=== PATIENT | female | born 1955 | race Caucasian/White ===

== ENCOUNTER → 2016-10-15 | Outpatient (CLI) | payer BC ==
--- NOTE | 2016-10-15 08:59 | CT ---
EXAMINATION TYPE: CT chest w con DATE OF EXAM: 10/15/2016 7:57 AM COMPARISON: NONE HISTORY: Abnormal findings of lung field CT DLP: 139.70 mGycm, Automated exposure control for dose reduction was used. CONTRAST: Performed injected with 100 ml mL of Omnipaque 300. TECHNIQUE: Axial images were obtained at 5 mm thick sections. Reconstructed images are reviewed on SignalSet computer in the coronal plane. FINDINGS: Portion of the thyroid visualized is normal. No suspicious lung nodules or focal infiltrates are present. No enlarged mediastinal or hilar adenopathy is evident. The ascending aorta diameter at the level o f the main pulmonary artery is 2.8 cm. The main pulmonary artery diameter at the bifurcation is 2.[address] sections are obtained through the upper abdomen. Abdomen is essentially unremarkable. IMPRESSIONS: 1. Normal Chest CT.
== END ==
LOC: RADCTMAIN 07:16
PROVIDERS: ATTEND Family Medicine
DX: R91.8 Other nonspecific abnormal finding of lung field (principal)
CPT/HCPCS: 71260; Q9967

== ENCOUNTER → 2016-10-19 | Outpatient (CLI) | payer BC ==
[2016-10-19 10:06] LABS: Basophils # (A) 0.1 k/uL (0-0.2); Basophils % (A) 1 %; CH 33.4; CHCM 33.5; Eosinophils # (A) 0.4 k/uL (0-0.7); Eosinophils % (A) 9 %; HCT 40.9 % (34.0-46.0); HDW 2.36; HGB 13.2 gm/dL (11.4-16.0); Luc # (Auto) 0.13; Luc % (Auto) 3; Lymphocytes % (A) 23 %; MCH 32.3 pg (25.0-35.0); MCHC 32.2 g/dL (31.0-37.0); MCV 100.1 fL (80.0-100.0); Mean Platelet Volume 7.4; Monocytes # (A) 0.2 k/uL (0-1.0); Monocytes % (A) 5 %; Neutrophils # (A) 2.6 k/uL (1.3-7.7); Neutrophils % (A) 59 %; RBC 4.09 m/uL (3.80-5.40); RDW 12.9 % (11.5-15.5); WBC 4.5 k/uL (3.8-10.6); WBC (Perox) 4.73
[2016-10-19 11:59] LABS: Erythrocyte Sedimentation Rate 2 mm/hr (0-20)
== END | disposition home or self-care (01) ==
LOC: LABWHC1 09:33
PROVIDERS: ATTEND Internal Medicine
DX: R09.1 Pleurisy (principal)
CPT/HCPCS: 36415; 85025; 85379; 85652; 86038

== ENCOUNTER 2016-11-03 21:48 | Inpatient (IN) | payer BC ==
[~2016-11-03 21:48] MED LIST: BIVALIRUDIN BOLUS 250 MG/50 ML IV ONE
[2016-11-03] MEDS ORDERED: SODIUM CHLORIDE 0.9% 1,000 ML IV STA (21:52)
[2016-11-03] MEDS ORDERED: SODIUM CHLORIDE 0.9% 500 ML IV STA (21:52)
[2016-11-03] MEDS ORDERED: MORPHINE SULFATE 4 MG/ML SYRINGE IVP STA (22:06)
[2016-11-03] MEDS ORDERED: LABETALOL 5 MG/ML VIAL MDV IVP STA (22:06)
[2016-11-03] MEDS ORDERED: MORPHINE SULFATE 4 MG/ML SYRINGE IV PRN (22:16)
[2016-11-03] MEDS ORDERED: HEPARIN SODIUM,PORCINE 5,000 UNIT/ML 1 ML VIAL IV PRN (22:16)
[2016-11-03] MEDS ORDERED: ASPIRIN 81 MG CHEW PO STA (22:16)
[2016-11-03] MEDS ORDERED: NITROGLYCERIN SL TABS 0.4 MG TAB SUBLINGUAL PRN (22:16)
[2016-11-03] MEDS ORDERED: HEPARIN SODIUM,PORCINE/D5W PMX 25,000 UNIT in DEXTROSE/WATER 1 500ML.BAG IV SCH (22:30)
[2016-11-03] MEDS: HEPARIN SODIUM,PORCINE 5,000 UNIT/ML 1 ML VIAL IV ONE (22:33)
--- NOTE | 2016-11-03 22:42 | XR ---
EXAM: XR Chest, 1 View CLINICAL HISTORY: Reason: Chest Pain TECHNIQUE: Frontal view of the chest. COMPARISON: CT 10/15/2016 FINDINGS: Lungs: Unremarkable. No consolidation. Pleural space: Unremarkable. No pneumothorax. Heart: Stable cardiomediastinal silhouette. Mediastinum: See above. Bones/joints: No acute osseous abnormality. Tubes, lines and devices: Right PICC tip projects over the superior vena cava. IMPRESSION: No acute cardiopulmonary process.
[2016-11-03] MEDS ORDERED: SODIUM CHLORIDE 0.9% 1,000 ML IV ONE (22:45)
[2016-11-03] MEDS ORDERED: MIDAZOLAM 2 MG/2 ML VIAL ONE (22:53)
[2016-11-03] MEDS ORDERED: ONDANSETRON 4 MG/2 ML VIAL ONE (22:54)
[2016-11-03] MEDS ORDERED: ONDANSETRON 4 MG/2 ML VIAL IVP ONE (22:55)
[2016-11-03] MEDS ORDERED: HYDROmorphone 2 MG/ML 1 ML SYRINGE IV ONE (22:56)
[2016-11-03] MEDS ORDERED: HYDROmorphone 2 MG/ML 1 ML SYRINGE ONE (22:56)
[2016-11-03] MEDS ORDERED: LIDOCAINE 2% INJ 20 MG/ML SQ ONE (22:58)
[2016-11-03] MEDS ORDERED: MIDAZOLAM 2 MG/2 ML VIAL IV ONE (22:58)
[2016-11-03 23:11] LABS: ALT 26 U/L (9-52); AST 32 U/L (14-36); Alkaline Phosphatase 60 U/L (38-126); Anion Gap 11 mmol/L; Blood Urea Nitrogen 20 mg/dL (7-17); Carbon Dioxide 23 mmol/L (22-30); Chloride 100 mmol/L (98-107); Glucose 117 mg/dL (74-99); Magnesium 1.8 mg/dL (1.6-2.3); Non-African American GFR(MDRD) 56 (>60 ml/min/1.73 sqM); Potassium 4.3 mmol/L (3.5-5.1); Sodium 134 mmol/L (137-145); Total Bilirubin 0.5 mg/dL (0.2-1.3); Total Protein 7.5 g/dL (6.3-8.2)
[2016-11-03 23:12] LABS: Basophils # (A) 0.1 k/uL (0-0.2); Basophils % (A) 1 %; CH 33.8; CHCM 34.6; Eosinophils # (A) 0.1 k/uL (0-0.7); Eosinophils % (A) 2 %; HCT 40.6 % (34.0-46.0); HDW 2.23; HGB 13.8 gm/dL (11.4-16.0); Luc # (Auto) 0.18; Luc % (Auto) 2; Lymphocytes # (A) 1.6 k/uL (1.0-4.8); Lymphocytes % (A) 20 %; MCH 33.4 pg (25.0-35.0); MCHC 34.1 g/dL (31.0-37.0); MCV 98.1 fL (80.0-100.0); Mean Platelet Volume 6.4; Monocytes # (A) 0.4 k/uL (0-1.0); Monocytes % (A) 5 %; Neutrophils # (A) 5.6 k/uL (1.3-7.7); Neutrophils % (A) 71 %; RBC 4.14 m/uL (3.80-5.40); WBC 7.9 k/uL (3.8-10.6); WBC (Perox) 8.21
--- NOTE | 2016-11-03 23:16 | ED ---
General Adult HPI - General Chief complaint: Chest Pain Stated complaint: chest pain Time Seen by Provider: 11/03/16 21:50 Source: patient, RN notes reviewed, old records reviewed Mode of arrival: wheelchair Limitations: no limitations - History of Present Illness Initial comments: This is a 60-year-old female the ER for evaluation of chest pain, patient with severe anterior chest pain rating the left jaw. 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 Patient denies any drugs or alcohol, denies any fever cough or congestion Kalosis complaining of severe anterior chest pain heaviest Acerra last night but was worse today. Severely worse after work. The pain radiates to her left job radiates to her left shoulder and feels like heaviness on her chest. No prior history of similar symptoms - Related Data Home Medications Medication Instructions Recorded Confirmed Albuterol Inhaler [Ventolin Hfa 1 - 2 puff INHALATION RT-Q6H PRN 11/03/16 Inhaler] Estrogens, Conjugated [Premarin] 0.625 mg PO DAILY 11/03/16 11/03/16 Fluticasone/Salmeterol [Advair 1 puff INHALATION RT-BID 11/03/16 11/03/16 250-50 Diskus] Loratadine [Claritin] 10 mg PO DAILY 11/03/16 11/03/16 Montelukast Sodium [Singulair] 10 mg PO DAILY 11/03/16 11/03/16 Allergies Allergy/AdvReac Type Severity Reaction Status Date / Time pentazocine [From Talwin] Allergy Dyspnea Verified 11/03/16 22:18 Sulfa (Sulfonamide Allergy Rash/Hives Verified 11/03/16 22:18 Antibiotics) aspirin AdvReac Nausea Verified 11/03/16 22:18 meperidine [From Demerol] AdvReac Vomiting Verified 11/03/16 22:18 Review of Systems ROS Statement: Those systems with pertinent positive or pertinent negative responses have been documented in the HPI. ROS Other: All systems not noted in ROS Statement are negative. Past Medical History Past Medical History: No Reported History History of Any Multi-Drug Resistant Organisms: None Reported Past Surgical History: Section, Hysterectomy, Tonsillectomy Past Psychological History: No Psychological Hx Reported Smoking Status: Former smoker Past Alcohol Use History: Occasional Past Drug Use History: None Reported General Exam Limitations: no limitations General appearance: alert, anxious, in distress Head exam: Present: atraumatic, normocephalic, normal inspection Eye exam: Present: normal appearance, PERRL, EOMI. Absent: scleral icterus, conjunctival injection, periorbital swelling ENT exam: Present: normal exam, mucous membranes moist Neck exam: Present: normal inspection. Absent: tenderness, meningismus, lymphadenopathy Respiratory exam: Present: normal lung sounds bilaterally. Absent: respiratory distress, wheezes, rales, rhonchi, stridor Cardiovascular Exam: Present: normal rhythm, tachycardia, normal heart sounds. Absent: systolic murmur, diastolic murmur, rubs, gallop, clicks GI/Abdominal exam: Present: soft, normal bowel sounds. Absent: distended, tenderness, guarding, rebound, rigid Extremities exam: Present: normal inspection, full ROM, normal capillary refill. Absent: tenderness, pedal edema, joint swelling, calf tenderness Back exam: Present: normal inspection Neurological exam: Present: alert, oriented X3, CN II-XII intact Psychiatric exam: Present: normal affect, normal mood Skin exam: Present: warm, dry, intact, normal color. Absent: rash Course Vital Signs 11/03/16 21:49 Temperature 98.2 F Pulse Rate 121 H Respiratory 22 Rate Blood Pressure 191/118 O2 Sat by Pulse 97 Oximetry - Reevaluation(s) Reevaluation #1: 11/03/16 23:13 Patient with severe chest pain, given labetalol for blood pressure control and pain control for morphine Reevaluation #2: 11/03/[address] elevated [place] pagejuma, cardiology evaluating patient EKG Findings - EKG Comments: EKG Findings:: EKG is positive for acute ST elevated [place], patient does have hyperacute T waves and ST elevation in the lateral leads,. EKG just showed normal sinus rhythm rate of 98, MT 128, QRS 72. Repeat Medical Decision Making - Medical Decision Making 60 female year with no history of heart disease, history of smoking coming in with severe anterior chest pain. Pain was yesterday i felt today but significant worsening tonight. Patient does have ST elevation in hyperacute T waves and EKG, cardiology saw patient in emergency room and transported the catheterization lab for cardiac cath. - Lab Data Result diagrams: 11/03/16 22:15 Lab Results 11/03/16 11/03/16 11/03/16 Range/Units 22:15 22:15 22:15 APTT 22.9 (22.0-30.0) sec Sodium 134 L (137-145) mmol/L Potassium 4.3 (3.5-5.1) mmol/L Chloride 100 (98-107) mmol/L Carbon Dioxide 23 (22-30) mmol/L Anion Gap 11 mmol/L BUN 20 H (7-17) mg/dL Creatinine 1.01 (0.52-1.04) mg/dL Est GFR (MDRD) Af Amer >60 (>60 ml/min/1.73 sqM) Est GFR (MDRD) Non-Af 56 (>60 ml/min/1.73 sqM) Glucose 117 H (74-99) mg/dL Calcium 10.0 (8.4-10.2) mg/dL Magnesium 1.8 (1.6-2.3) mg/dL Total Bilirubin 0.5 (0.2-1.3) mg/dL AST 32 (14-36) U/L ALT 26 (9-52) U/L Alkaline Phosphatase 60 (38-126) U/L Total Protein 7.5 (6.3-8.2) g/dL Albumin 4.5 (3.5-5.0) g/dL Lipase 102 (23-300) U/L - Radiology Data Radiology results: report reviewed (Chest x-ray shows no widened mediastinum), image reviewed Critical Care Time Critical Care Time: Yes Total Critical Care Time: 31 Disposition Clinical Impression: ST elevation myocardial infarction (STEMI) Disposition: ADMITTED IP TO THIS HOSP Condition: Serious
[2016-11-03] MEDS ORDERED: IOHEXOL 350 MG/ML 125ML BOTTLE INJ ONE (23:18)
[2016-11-03] MEDS ORDERED: RX INFO: IV CONTRAST WAS GIVEN 1 EACH MISC MISCELLANE PRN (23:21)
[2016-11-03] MEDS ORDERED: hydrALAZINE HCL 20 MG/ML 1 ML VIAL ONE (23:22)
[2016-11-03] MEDS ORDERED: hydrALAZINE HCL 20 MG/ML 1 ML VIAL IV ONE (23:24)
--- NOTE | 2016-11-03 23:28 | P.CRDCN ---
History of Present Illness Consult date: 11/03/16 Chief complaint: Chest discomfort History of present illness: This is a pleasant 60-year-old female patient with no significant past medical history presented to the emergency room complaining of chest discomfort. She has been experiencing intermittent episodes of chest discomfort over the last week. She describes the discomfort as a pressure across the chest with some radiation to the neck and to the jaw. Earlier today the discomfort was quite severe where she decided to come in to the emergency room. In the ER the EKG showed sinus rhythm with ST segment elevation in the anterior leads. In view of the ongoing chest discomfort with decided to pursue with a heart catheterization. 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 The left ventriculography showed evidence of stress-induced cardiomyopathy with severely impaired LV function and ejection fraction of about 25%. Maximize medical treatment is recommended and the patient is going to be started on metoprolol, lisinopril, and Aldactone. Will obtain an echocardiogram Past Medical History Past Medical History: No Reported History History of Any Multi-Drug Resistant Organisms: None Reported Past Surgical History: Section, Hysterectomy, Tonsillectomy Past Psychological History: No Psychological Hx Reported Smoking Status: Former smoker Past Alcohol Use History: Occasional Past Drug Use History: None Reported Medications and Allergies Home Medications Medication Instructions Recorded Confirmed Type Albuterol Inhaler [Ventolin Hfa 1 - 2 puff INHALATION RT-Q6H PRN 11/03/16 History Inhaler] Estrogens, Conjugated [Premarin] 0.625 mg PO DAILY 11/03/16 11/03/16 History Fluticasone/Salmeterol [Advair 1 puff INHALATION RT-BID 11/03/16 11/03/16 History 250-50 Diskus] Loratadine [Claritin] 10 mg PO DAILY 11/03/16 11/03/16 History Montelukast Sodium [Singulair] 10 mg PO DAILY 11/03/16 11/03/16 History Allergies Allergy/AdvReac Type Severity Reaction Status Date / Time pentazocine [From Talwin] Allergy Dyspnea Verified 11/03/16 22:18 Sulfa (Sulfonamide Allergy Rash/Hives Verified 11/03/16 22:18 Antibiotics) aspirin AdvReac Nausea Verified 11/03/16 22:18 meperidine [From Demerol] AdvReac Vomiting Verified 11/03/16 22:18 Physical Exam Vitals: Vital Signs Pulse Resp BP Pulse Ox 11/03/16 22:42 87 24 169/107 98 11/03/16 22:37 94 24 162/104 98 11/03/16 22:34 114 H 26 H 183/107 98 11/03/16 22:22 108 H 26 H 194/108 98 Intake and Output 11/03/16 11/03/16 11/04/16 14:59 22:59 06:59 Intake Total 100 Balance 100 Intake: IV 100 - Constitutional General appearance: no acute distress - Respiratory Respiratory: bilateral: CTA - Cardiovascular Rhythm: regular Heart sounds: normal: S1, S2 Results 11/03/16 22:15 Current Medications Generic Name Dose Route Start Last Admin Trade Name Freq PRN Reason Stop Dose Admin Aspirin 325 mg 11/04/16 09:00 Aspirin PO DAILY [facility] Atorvastatin Calcium 80 mg 11/04/16 09:00 Lipitor PO DAILY [facility] Heparin Sodium (Porcine) 0 unit 11/03/16 22:16 Heparin IV Q6HR PRN Low PTT Protocol Sodium Chloride 1,000 mls @ 100 mls/hr 11/03/16 21:52 11/03/16 22:38 Saline 0.9% IV 11/04/16 07:51 100 mls/hr .Q10H STA Administration Heparin Sodium/Dextrose 25,000 500 mls @ 13.06 mls/hr 11/03/16 22:30 unit/ IV Solution IV .Q24H JENNIE Protocol 12 UNITS/KG/HR Sodium Chloride 1,000 mls @ 100 mls/hr 11/03/16 23:30 Saline 0.9% IV 11/04/16 05:31 .Q10H [facility] Lisinopril 5 mg 11/04/16 09:00 Zestril PO DAILY [facility] Metoprolol Tartrate 25 mg 11/04/16 09:00 Lopressor PO BID [facility] Miscellaneous Information 1 each 11/03/16 23:21 Rx Info: Iv Contrast Was Given MISCELLANE 11/05/16 23:21 DAILY PRN Per Protocol Morphine Sulfate 4 mg 11/03/16 22:16 Morphine Sulfate (Inj) IV Q4HR PRN Chest Pain Nitroglycerin 0.4 mg 11/03/16 22:16 Nitrostat SUBLINGUAL Q5M PRN Chest Pain Spironolactone 25 mg 11/04/16 09:00 Aldactone PO DAILY JENNIE Intake and Output 11/03/16 11/03/16 11/04/16 14:59 22:59 06:59 Intake Total 100 Balance 100 Intake: IV 100 Assessment and Plan Plan: Assessment #1 stress induced cardiomyopathy Plan #1 maximize medical treatment #2 an echocardiogram was Doppler #3 follow-up with the patient
[2016-11-03] MEDS ORDERED: SODIUM CHLORIDE 0.9% 1,000 ML IV SCH (23:30)
--- NOTE | 2016-11-03 23:33 | P.PCN ---
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 Selective right and left coronary angiogram 2. Left heart catheterization 3. Left ventriculography APPROACH: Right femoral artery PROCEDURE DESCRIPTION: After obtaining an informed consent and explaining the procedure benefits, risks , and complications, the patient was brought to cardiac cardiac cath lab radiology technologist. Local anesthesia was performed using lidocaine subcutaneously. The right femoral artery was cannulated using puncture technique, the guidewire passed easily, and a 6-Thai sheath dilator assembly was advanced over the wire then the wire and dilator were removed and sheath was flushed. Selective right and left coronary angiogram using a 6-Thai JR4 and JL4 catheters. Following that we did left heart catheterization followed by left ventriculography using 6-Thai pigtail catheter. The procedure was completed there was no complication. SELECTIVE CORONARY ANGIOGRAM: The right coronary artery: Is a large caliber vessel and its a dominant vessel. Its angiographically normal. Bifurcates distally into PDA and PLV branches and both are angiographically normal. Left main: Is angiographically normal. Bifurcates into the left circumflex and left anterior descending artery The left circumflex: Is a large caliber vessel and and on dominant vessel. The proximal left circumflex is angiographically normal. It gives rises into the first OM branch which is normal. The mid left circumflex is angiographically normal and gives rises into the second OM branch which seems to be angiographically normal. The left circumflex continue after that as a small caliber vessel The left anterior descending artery: The proximal LAD appears to be angiographically normal. It gives rises into the first diagonal which seems to be angiographically normal. The mid LAD appears to have a plaque in the range of 50% with myocardial bridging the LAD distally becomes tortuous but seems to be angiographically normal. The LAD in the midportion gives rises into the second diagonal which seems to be angiographically normal. HEMODYNAMICS: The left ventricular end-diastolic pressure was 24 mmHg and no gradient was identified across aortic valve VENTRICULOGRAPHY: Was performed in the GARCIA projection and using a poor injection. The left ventricular systolic function is impaired with an ejection fraction of 25% with anterior, apical, and inferoapical hypokinesia and finding consistent with stress induced cardiomyopathy. POSTPROCEDURE MANAGEMENT: Maximize medical treatment Follow-up with the patient
[2016-11-03 23:39] LABS: Troponin I 0.267 ng/mL (0.000-0.034)
[2016-11-04 00:48] VITALS: BMI 21.9
[2016-11-04] MEDS: HEPARIN SODIUM,PORCINE 5,000 UNIT/ML 1 ML VIAL IV ONE (01:27)
[2016-11-04 04:58] LABS: Mean Platelet Volume 6.4
[2016-11-04 05:07] LABS: Cholesterol 204 mg/dL (<200); HDL Cholesterol 92 mg/dL (40-60); Triglycerides 132 mg/dL (<150)
[2016-11-04 05:32] LABS: Creatine Kinase MB 44.3 ng/mL (0.0-2.4)
[2016-11-04 05:33] LABS: Troponin I 3.97 ng/mL (0.000-0.034)
[2016-11-04] MEDS: ONDANSETRON 4 MG/2 ML VIAL IVP PRN ×3 (08:02→21:15)
[2016-11-04] MEDS ORDERED: ALBUTEROL NEBULIZED 2.5 MG/3 ML INHALATION PRN (08:28)
[2016-11-04] MEDS: ASPIRIN 325 MG TAB PO SCH (09:18)
[2016-11-04] MEDS: SPIRONOLACTONE 25 MG TAB PO SCH (09:19)
[2016-11-04] MEDS: ATORVASTATIN 80 MG TAB PO SCH (09:19)
[2016-11-04] MEDS: METOPROLOL TARTRATE 25 MG TAB PO SCH ×2 (09:19→21:23)
[2016-11-04] MEDS: LISINOPRIL 5 MG TAB PO SCH (09:19)
[2016-11-04] MEDS ORDERED: LORazepam 2 MG/ML SYRINGE IV STA (10:56)
[2016-11-04] MEDS ORDERED: HYDROmorphone 1 MG/ML 1 ML SYRINGE IVP STA (10:57)
--- NOTE | 2016-11-04 11:20 | ECHOF ---
Referral Reason:ACS MEASUREMENTS -------- HEIGHT: 157.5 cm WEIGHT: 54.4 kg BP: RVIDd: 2.5 cm (< 3.3) IVSd: 1.0 cm (0.6 - 1.1) LVIDd: 4.5 cm (3.9 - 5.3) LVPWd: 1.0 cm (0.6 - 1.1) IVSs: 1.4 cm LVIDs: 3.2 cm LVPWs: 1.4 cm LA Diam: 3.1 cm (2.7 - 3.8) LAESV Index (A-L): 17.36 ml/m Ao Diam: 2.5 cm (2.0 - 3.7) AV Cusp: 1.9 cm (1.5 - 2.6) LA Diam: 2.7 cm (2.7 - 3.8) MV EXCURSION: 13.254 mm (> 18.000) MV EF SLOPE: 108 mm/s (70 - 150) EPSS: 0.6 cm MV E Frankie: 0.64 m/s MV DecT: 157 ms MV A F[place]: 0.75 m/s MV E/A Ratio: 0.86 RAP: 5.00 mmHg RVSP: 46.28 mmHg FINDINGS -------- Sinus rhythm. This was a technically good study. Overall left ventricular systolic function is moderately impaired with, an EF between 35 - 40 %. Possible Takotsubo. Apical anterior LV wall motion is hypokinetic. Apical lateral LV wall motion is hypokinetic. Apical inferior LV wall motion is hypokinetic. Apical septum LV wall motion is hypokinetic. The right ventricle is normal in size. Normal LA size by volume 22+/-6 ml/m2. The right atrium is normal in size. Aortic valve is trileaflet and is mildly thickened. There is no evidence of aortic regurgitation. There is no evidence of aortic stenosis. The mitral valve leaflets are mild to moderately thickened. Mild mitral annular calcification present. [id number] mitral regurgitation is present. Moderate tricuspid regurgitation present. There is mild pulmonary hypertension. The right ventricular systolic pressure, as measured by Doppler, is 46.28mmHg. The pulmonic valve is normal. The aortic root size is normal. There is no pericardial effusion. CONCLUSIONS -------- 1. Sinus rhythm. 2. The mitral valve leaflets are mild to moderately thickened. 3. Mild mitral annular calcification present. 4. Brlmoaea-xo-ixowij mitral regurgitation is present. 5. Moderate tricuspid regurgitation present. 6. There is mild pulmonary hypertension. 7. The right ventricular systolic pressure, as measured by Doppler, is 46.28mmHg. 8. The aortic root size is normal. 9. There is no pericardial effusion. 10. This was a technically good study. 11. Overall left ventricular systolic function is moderately impaired with, an EF between 35 - 40 %. 12. Possible Takotsubo. 13. Apical anterior LV wall motion is hypokinetic. 14. Apical lateral LV wall motion is hypokinetic. 15. Apical inferior LV wall motion is hypokinetic. 16. Apical septum LV wall motion is hypokinetic. 17. Aortic valve is trileaflet and is mildly thickened. MIS DIRECTOR: Savanah Abrams RDCS
[2016-11-04] MEDS ORDERED: HYDROmorphone 1 MG/ML 1 ML SYRINGE IVP PRN (13:04)
[2016-11-04] MEDS: LORATADINE 10 MG TAB PO SCH (13:56)
[2016-11-04] MEDS: MONTELUKAST 10 MG TAB PO SCH (13:56)
--- NOTE | 2016-11-04 14:00 | P.HPIM ---
History of Present Illness H&P Date: 11/04/16 Chief Complaint: Chest pain Patient is a 60-year-old female, patient of Dr. Alejandra in the outpatient setting, with medical history significant for recent pneumonia and pleurisy followed by Dr. Pulido in the outpatient setting, presenting to the emergency department with complaints of chest pain. Patient reports one previous episode of chest pain the day before she presented to the emergency department described as sharp pressure across her chest with some radiation to her neck and jaw. Chest x-ray with no evidence of acute pulmonary process. EKG with evidence of ST elevation in her anterior leads and was taken for emergent heart catheterization with findings of myocardial bridging involving the mid LAD with disease about 50%. Patient did have stress induced cardiomyopathy with severely impaired LV function and ejection fraction of about 25%. Patient tolerated procedure well. Echocardiogram obtained this morning with evidence of moderate to severe mitral regurgitation; moderate tricuspid regurgitation; mild pulmonary hypertension; markedly impaired left ventricular systolic function with an EF between 35-40%; possibly Takotsubo syndrome. Upon examination, patient is lying in bed. Patient complains of chest pressure across the chest currently rated 5 out of 10. Patient states she has had chest pressure since yesterday but it's less in intensity. Patient complains of nausea and vomiting. Patient states that morphine makes her sick to her stomach. Patient denies chills, fevers, shortness of breath, abdominal pain, leg swelling, leg pain. Denies dysuria, hematuria, or urgency. Denies constipation or diarrhea. Past Medical History Past Medical History: No Reported History History of Any Multi-Drug Resistant Organisms: None Reported Past Surgical History: Section, Hysterectomy, Tonsillectomy Past Anesthesia/Blood Transfusion Reactions: Postoperative Nausea & Vomiting ( PONV) Past Psychological History: No Psychological Hx Reported Smoking Status: Former smoker Past Alcohol Use History: Occasional Past Drug Use History: None Reported - Past Family History Mother Family Medical History: Cancer Father Family Medical History: Congestive Heart Failure (CHF) Medications and Allergies Home Medications Medication Instructions Recorded Confirmed Type Albuterol Inhaler [Ventolin Hfa 1 - 2 puff INHALATION RT-Q6H PRN 11/03/16 History Inhaler] Estrogens, Conjugated [Premarin] 0.625 mg PO DAILY 11/03/16 11/03/16 History Fluticasone/Salmeterol [Advair 1 puff INHALATION RT-BID 11/03/16 11/03/16 History 250-50 Diskus] Loratadine [Claritin] 10 mg PO DAILY 11/03/16 11/03/16 History Montelukast Sodium [Singulair] 10 mg PO DAILY 11/03/16 11/03/16 History Allergies Allergy/AdvReac Type Severity Reaction Status Date / Time pentazocine [From Talwin] Allergy Dyspnea Verified 11/03/16 22:18 Sulfa (Sulfonamide Allergy Rash/Hives Verified 11/03/16 22:18 Antibiotics) aspirin AdvReac Nausea Verified 11/03/16 22:18 meperidine [From Demerol] AdvReac Vomiting Verified 11/03/16 22:18 Physical Exam Vitals: Vital Signs Temp Pulse Pulse Resp BP BP Pulse Ox 11/04/16 11:24 98.1 F 81 18 131/86 96 11/04/16 08:00 18 11/04/16 07:58 97 F L 88 24 143/74 95 11/04/16 04:00 97.9 F 81 18 124/72 97 11/03/16 23:40 96.9 F L 82 20 147/74 93 L 11/03/16 22:47 98 F 87 24 168/105 97 11/03/16 22:42 87 24 169/107 98 11/03/16 22:37 94 24 162/104 98 11/03/16 22:34 114 H 26 H 183/107 98 11/03/16 22:28 96.9 F L 82 18 147/74 93 L 11/03/16 22:22 108 H 26 H 194/108 98 Intake and Output 11/03/16 11/04/16 11/04/16 22:59 06:59 14:59 Intake Total 100 700 Output Total 1350 Balance 100 -650 Intake: IV 100 700 Sodium Chloride 0.9% 1, 700 000 ml @ 100 mls/hr IV . Q10H [facility] Rx#:[id number] Output: Urine 1350 Other: Voiding Method Toilet # Voids 1 1 Weight 54.431 kg 56.3 kg GENERAL: Pt awake and alert, well-nourished, appears uncomfortable. HEAD: Atraumatic, normocephalic. EYES: Pupils equal, round, and reactive to light, extraocular movements intact, sclera anicteric, conjunctiva are normal. ENT: Oropharynx clear without exudates. Moist mucous membranes. NECK: Supple without lymphadenopathy or JVD. No carotid bruits. Thyroid midline , small and firm without palpable masses. LUNGS: Breath sounds clear to auscultation bilaterally. No wheezes, rales, or rhonchi. HEART: Heart S1, S2, no S3 or S4. No murmurs, rubs or gallops. ABDOMEN: Soft, nontender, nondistended, normoactive bowel sounds. No guarding, no rebound. No masses or organomegaly appreciated. EXTREMITIES: 2+ peripheral pulses. No edema, clubbing or cyanosis. No calf tenderness. NEUROLOGICAL: Pt oriented x 3. Cranial nerves II through XII grossly intact. Strength and sensation grossly intact. PSYCH: Normal mood, normal affect. SKIN: Warm, dry, intact. Normal turgor. No rashes or lesions. Results CBC & Chem 7: 11/04/16 04:46 11/03/16 22:15 Labs: Abnormal Lab Results - Last 24 Hours (Table) 11/04/16 11/04/16 Range/Units 04:46 04:46 Total Creatine Kinase 336 H (30-135) U/L CK-MB (CK-2) 44.3 H* (0.0-2.4) ng/mL Troponin I 3.970 H* (0.000-0.034) ng/mL Cholesterol 204 H (<200) mg/dL HDL Cholesterol 92 H (40-60) mg/dL Chest x-ray: report reviewed Thrombosis Risk Factor Assmnt - DVT/VTE Prophylaxis DVT/VTE Prophylaxis: Low risk, early ambulation encouraged - Choose All That Apply Any of the Below Risk Factors Present?: No Other Risk Factors: Yes Each Risk Factor Represents 2 Points: Age 61-74 years Thrombosis Risk Factor Assessment Total Risk Factor Score: 2 Thrombosis Risk Factor Assessment Level: Low Risk Assessment and Plan Plan: Impression and plan: 1. Chest pain suspect secondary to stress-induced cardiomyopathy. Cardiology service is on consult, recommendations noted. At this time, plan is to maximize medical therapy. Continue aspirin 325 mg by mouth daily. 2. Dyslipidemia. Continue Lipitor 80 mg daily. 3. Hypertensive urgency, present on arrival, improved. Continue metoprolol 25 mg twice a day. Continue Aldactone 25 mg by mouth daily. 4. History of recent pneumonia and left-sided pleurisy. 5. History of nicotine dependence. 6. Nausea and vomiting. Continue Zofran. Continue Pepcid. Continue to monitor patient. Home medications have been reviewed and resumed. Continue supportive treatment and pain management. Continue to follow cardiology service. The above impression and plan have been discussed and directed by Dr. Rodarte. Mohan RUBIO acting as scribe for Dr. Rodarte.
--- NOTE | 2016-11-04 15:37 | P.PN ---
Subjective Principal diagnosis: Stress cardiomyopathy This is a pleasant 60-year-old female patient with no significant past medical history presented to the emergency room complaining of chest discomfort.She has been experiencing intermittent episodes of chest discomfort over the last week. She describes the discomfort as a pressure across the chest with some radiation to the neck and to the jaw. Yesterday the discomfort was quite severe where she decided to come in to the emergency room. In the ER the EKG showed sinus rhythm with ST segment elevation in the anterior leads. In view of the ongoing chest discomfort with decided to pursue with a heart catheterization. 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 The left ventriculography showed evidence of stress-induced cardiomyopathy with severely impaired LV function and ejection fraction of about 25%.Maximize medical treatment is recommended and the patient is going to be started on metoprolol, lisinopril, and Aldactone. Echocardiogram with Doppler study was performed which revealed an ejection fraction of 35-40% with apical anterior LV wall motion which is hypokinetic. Patient also has moderate to severe mitral regurgitation and moderate tricuspid regurgitation. Blood pressure 137/80 with a heart rate in the 80s. Temp 97.3 she is 96% on room air. Patient continued to complain of chest discomfort at the time of my examination today. Troponin up to 3.9. Nitrates are contraindicated with myocardial bridging, we will start the patient on some Fentanyl for the pain. Objective - Vital Signs Vital signs: Vital Signs Temp 98.1 F 11/04/16 11:24 Pulse 81 11/04/16 11:24 Resp 18 11/04/16 11:24 BP 131/86 11/04/16 11:24 Pulse Ox 96 11/04/16 11:24 Intake & Output 11/03/16 11/04/16 11/04/16 18:59 06:59 18:59 Intake Total 800 Output Total 1350 Balance -550 Weight 56.3 kg Intake: IV 800 Sodium Chloride 0.9% 1, 700 000 ml @ 100 mls/hr IV . Q10H [facility] Rx#:[id number] Output: Urine 1350 Other: Voiding Method Toilet # Voids 1 1 - Exam PHYSICAL EXAMINATION: HEENT: Head is atraumatic, normocephalic. Pupils equal, round. Neck is supple. There is no elevated jugular venous pressure. HEART EXAMINATION: Heart S1 and S2 systolic murmur is heard. CHEST EXAMINATION: Lungs are clear to auscultation and precussion. Positive chest wall tenderness is noted on palpation or with deep breathing. ABDOMEN: Soft, nontender. Bowel sounds are heard. No organomegaly noted. Right groin soft, no evidence of any hematoma. EXTREMITIES: 2+ peripheral pulses with no evidence of peripheral edema and no calf tenderness noted. NEUROLOGIC patient is awake, alert and oriented -3. . - Labs CBC & Chem 7: 11/04/16 04:46 11/03/16 22:15 Labs: Abnormal Lab Results - Last 24 Hours (Table) 11/04/16 11/04/16 Range/Units 04:46 04:46 Total Creatine Kinase 336 H (30-135) U/L CK-MB (CK-2) 44.3 H* (0.0-2.4) ng/mL Troponin I 3.970 H* (0.000-0.034) ng/mL Cholesterol 204 H (<200) mg/dL HDL Cholesterol 92 H (40-60) mg/dL Assessment and Plan (1) Stress-induced cardiomyopathy Status: Acute (2) Myocardial bridge Status: Acute (3) S/P cardiac cath Status: Acute Plan: From cardiology's perspective, we will continue the patient on her current medications including aspirin 325 mg daily, Lipitor 80 mg daily, lisinopril 5 mg daily, metoprolol tartrate 25 mg one tablet by mouth twice a day, Aldactone, we will add fentanyl to her current medications for more optimal pain control. Avoid nitrates in the setting of myocardial bridging. DNP note has been reviewed, I agree with a documented findings and plan of care. Patient was seen and examined.
[2016-11-04] MEDS: SYMBICORT 80-4.5 MCG INHALER INHALATION SCH (20:06)
[2016-11-04] MEDS: ALPRAZolam 0.25 MG TAB PO PRN (21:22)
[2016-11-04] MEDS: FAMOTIDINE 20 MG TAB PO SCH (21:23)
[2016-11-05 06:33] LABS: Mean Platelet Volume 6.3
[2016-11-05] MEDS: ONDANSETRON 4 MG/2 ML VIAL IVP PRN ×3 (07:19→21:23)
[2016-11-05] MEDS: ASPIRIN 325 MG TAB PO SCH (08:57)
[2016-11-05] MEDS: ATORVASTATIN 80 MG TAB PO SCH (08:57)
[2016-11-05] MEDS: FAMOTIDINE 20 MG TAB PO SCH ×2 (08:57→21:21)
[2016-11-05] MEDS: LORATADINE 10 MG TAB PO SCH (08:57)
[2016-11-05] MEDS: MONTELUKAST 10 MG TAB PO SCH (08:58)
[2016-11-05] MEDS: SYMBICORT 80-4.5 MCG INHALER INHALATION SCH ×2 (11:22→19:25)
--- NOTE | 2016-11-05 11:40 | P.PN ---
Subjective Principal diagnosis: Stress induced cardiomyopathy Patient is a 60-year-old female, patient of Dr. Alejandra in the outpatient setting, with medical history significant for recent pneumonia and pleurisy followed by Dr. Pulido in the outpatient setting, presenting to the emergency department with complaints of chest pain. Patient reports one previous episode of chest pain the day before she presented to the emergency department described as sharp pressure across her chest with some radiation to her neck and jaw. Chest x-ray with no evidence of acute pulmonary process. EKG with evidence of ST elevation in her anterior leads and was taken for emergent heart catheterization with findings of myocardial bridging involving the mid LAD with disease about 50%. Patient did have stress induced cardiomyopathy with severely impaired LV function and ejection fraction of about 25%. Patient tolerated procedure well. Echocardiogram obtained this morning with evidence of moderate to severe mitral regurgitation; moderate tricuspid regurgitation; mild pulmonary hypertension; markedly impaired left ventricular systolic function with an EF between 35-40%; possibly Takotsubo syndrome. 11/05/2016: Patient is reevaluated on selective care unit. Patient reports improvement in her chest pressure currently 1 out of 10. Patient continues to complain of mild nausea without vomiting. Denies chills, fevers, shortness of breath, abdominal pain, leg swelling, leg pain. Patient reports poor appetite. Patient is urinating without difficulty. Afebrile. Patient was noted to be slightly hypotensive this morning with blood pressure of 87/52. Orthostatic hypotension negative. Labs pending. Objective - Vital Signs Vital signs: Vital Signs Temp 96.8 F L 11/05/16 11:10 Pulse 68 11/05/16 11:10 Resp 20 11/05/16 11:10 BP 90/55 11/05/16 11:10 Pulse Ox 93 L 11/05/16 11:10 Intake & Output 11/04/16 11/05/16 11/05/16 18:59 06:59 18:59 Intake Total 160 1160 260 Output Total 100 Balance 160 1160 160 Weight 55.3 kg Intake: IV 160 800 Sodium Chloride 0.9% 1, 160 800 000 ml @ 100 mls/hr IV . Q10H [facility] Rx#:[id number] Intake, IV Titration 160 Amount Sodium Chloride 0.9% 1, 160 000 ml As IV .[facility] Rx#:[id number] Oral 360 100 Output: Urine 100 Other: Voiding Method Toilet Toilet Toilet # Voids 1 3 - Exam GENERAL: Pt awake and alert, well-nourished, in no acute distress. HEAD: Atraumatic, normocephalic. EYES: Pupils equal, round, and reactive to light, extraocular movements intact, sclera anicteric, conjunctiva are normal. ENT: Oropharynx clear without exudates. Moist mucous membranes. NECK: Supple without lymphadenopathy or JVD. No carotid bruits. Thyroid midline , small and firm without palpable masses. LUNGS: Breath sounds clear to auscultation bilaterally. No wheezes, rales, or rhonchi. HEART: Heart S1, S2, no S3 or S4. Regular rate and rhythm. No murmurs, rubs or gallops. ABDOMEN: Soft, nontender, nondistended, normoactive bowel sounds. No guarding, no rebound. No masses or organomegaly appreciated. EXTREMITIES: 2+ peripheral pulses. No edema, clubbing or cyanosis. No calf tenderness. NEUROLOGICAL: Pt oriented x 3. Cranial nerves II through XII grossly intact. Strength and sensation grossly intact. PSYCH: Normal mood, normal affect. SKIN: Warm, dry, intact. Normal turgor. No rashes or lesions. - Labs CBC & Chem 7: 11/05/16 05:42 11/03/16 22:15 Assessment and Plan Plan: Impression and plan: 1. Chest pain suspect secondary to stress-induced cardiomyopathy. Cardiology service is on consult, recommendations noted. At this time, plan is to maximize medical therapy. Continue aspirin 325 mg by mouth daily. 2. Dyslipidemia. Continue Lipitor 80 mg daily. 3. Hypertensive urgency, present on arrival, resolved. 4. Hypotension. Blood pressure medications held this morning. Cardiology to address blood pressure medications. 4. History of recent pneumonia and left-sided pleurisy. 5. History of nicotine dependence. 6. Nausea and vomiting, improved. Continue Zofran. Continue Pepcid. Continue to monitor patient. Continue current medications. Continue supportive treatment and pain management. Continue GI and DVT prophylaxis. Continue to follow cardiology service. The above impression and plan have been discussed and directed by Dr. Rodarte. Mohan RUBIO acting as scribe for Dr. Rodarte.
[2016-11-05 12:05] LABS: Basophils % (A) 0 %; CH 33.9; CHCM 34.4; Eosinophils # (A) 0.1 k/uL (0-0.7); Eosinophils % (A) 1 %; HCT 40.6 % (34.0-46.0); HDW 2.25; HGB 13.5 gm/dL (11.4-16.0); Luc # (Auto) 0.12; Luc % (Auto) 1; Lymphocytes % (A) 10 %; MCH 32.9 pg (25.0-35.0); MCHC 33.3 g/dL (31.0-37.0); MCV 98.9 fL (80.0-100.0); Mean Platelet Volume 7.2; Monocytes # (A) 0.7 k/uL (0-1.0); Monocytes % (A) 7 %; Neutrophils # (A) 8.6 k/uL (1.3-7.7); Neutrophils % (A) 81 %; RDW 12.9 % (11.5-15.5); WBC 10.6 k/uL (3.8-10.6); WBC (Perox) 10.02
[2016-11-05 12:16] LABS: Anion Gap 7 mmol/L; Blood Urea Nitrogen 11 mg/dL (7-17); Calcium 8.6 mg/dL (8.4-10.2); Carbon Dioxide 23 mmol/L (22-30); Chloride 103 mmol/L (98-107); Glucose 101 mg/dL (74-99); Non-African American GFR(MDRD) >60 (>60 ml/min/1.73 sqM); Potassium 4.5 mmol/L (3.5-5.1); Sodium 133 mmol/L (137-145)
[2016-11-05] MEDS: SPIRONOLACTONE 25 MG TAB PO SCH (12:19)
--- NOTE | 2016-11-05 15:26 | P.PN ---
Subjective Principal diagnosis: Stress cardiomyopathy This is a pleasant 60-year-old female patient with no significant past medical history presented to the emergency room complaining of chest discomfort.She has been experiencing intermittent episodes of chest discomfort over the last week. She describes the discomfort as a pressure across the chest with some radiation to the neck and to the jaw. Yesterday the discomfort was quite severe where she decided to come in to the emergency room. In the ER the EKG showed sinus rhythm with ST segment elevation in the anterior leads. In view of the ongoing chest discomfort with decided to pursue with a heart catheterization. 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 The left ventriculography showed evidence of stress-induced cardiomyopathy with severely impaired LV function and ejection fraction of about 25%.Maximize medical treatment is recommended and the patient is going to be started on metoprolol, lisinopril, and Aldactone. Echocardiogram with Doppler study was performed which revealed an ejection fraction of 35-40% with apical anterior LV wall motion which is hypokinetic. Patient also has moderate to severe mitral regurgitation and moderate tricuspid regurgitation. Blood pressure has been running on the low side, os recent blood pressure 90/50 with a heart rate in the 70s. Decrease her dose of CHALO inhibitor to 2-1/2 mg one tablet by mouth daily, decrease of beta vini to 12-1/2 mg one tablet by mouth twice a day. He denies any further chest discomfort today. Objective - Vital Signs Vital signs: Vital Signs Temp 97.1 F L 11/05/16 12:01 Pulse 71 11/05/16 12:01 Resp 16 11/05/16 12:01 BP 91/51 11/05/16 12:01 Pulse Ox 97 11/05/16 12:01 Intake & Output 11/04/16 11/05/16 11/05/16 18:59 06:59 18:59 Intake Total 160 1160 260 Output Total 100 Balance 160 1160 160 Weight 55.3 kg Intake: IV 160 800 Sodium Chloride 0.9% 1, 160 800 000 ml @ 100 mls/hr IV . Q10H [facility] Rx#:[id number] Intake, IV Titration 160 Amount Sodium Chloride 0.9% 1, 160 000 ml As IV .[facility] Rx#:[id number] Oral 360 100 Output: Urine 100 Other: Voiding Method Toilet Toilet Toilet # Voids 1 3 - Exam PHYSICAL EXAMINATION: HEENT: Head is atraumatic, normocephalic. Pupils equal, round. Neck is supple. There is no elevated jugular venous pressure. HEART EXAMINATION: Heart S1 and S2 systolic murmur is heard. CHEST EXAMINATION: Lungs are clear to auscultation and precussion. Positive chest wall tenderness is noted on palpation or with deep breathing. ABDOMEN: Soft, nontender. Bowel sounds are heard. No organomegaly noted. Right groin soft, no evidence of any hematoma. EXTREMITIES: 2+ peripheral pulses with no evidence of peripheral edema and no calf tenderness noted. NEUROLOGIC patient is awake, alert and oriented -3. . - Labs CBC & Chem 7: 11/05/16 05:42 11/05/16 05:42 Labs: Abnormal Lab Results - Last 24 Hours (Table) 11/05/16 11/05/16 Range/Units 05:42 05:42 Neutrophils # 8.6 H (1.3-7.7) k/uL Sodium 133 L (137-145) mmol/L Glucose 101 H (74-99) mg/dL Assessment and Plan (1) Stress-induced cardiomyopathy Status: Acute (2) Myocardial bridge Status: Acute (3) S/P cardiac cath Status: Acute Plan: From cardiology's perspective, we will continue the patient on her current medications including aspirin 325 mg daily, Lipitor 80 mg daily, lisinopril to 2 -1/2 mg daily,Aldactone 25mg daily, decrease metoprolol tartrate 12-1/2 mg one tablet by mouth twice a day. Increase activity by getting up in the chair today. DNP note has been reviewed, I agree with a documented findings and plan of care. Patient was seen and examined.
[2016-11-05] MEDS: ALPRAZolam 0.25 MG TAB PO PRN (21:21)
[2016-11-05] MEDS: METOPROLOL TARTRATE 12.5 MG TAB PO SCH (21:22)
[2016-11-06 07:28] LABS: Mean Platelet Volume 7.1
[2016-11-06] MEDS: SYMBICORT 80-4.5 MCG INHALER INHALATION SCH ×2 (07:57→20:43)
[2016-11-06] MEDS: ASPIRIN 81 MG CHEW PO SCH (08:34)
[2016-11-06] MEDS: ATORVASTATIN 80 MG TAB PO SCH (08:34)
[2016-11-06] MEDS: SPIRONOLACTONE 25 MG TAB PO SCH (08:34)
[2016-11-06] MEDS: LISINOPRIL 2.5 MG TAB PO SCH (08:34)
[2016-11-06] MEDS: FAMOTIDINE 20 MG TAB PO SCH ×2 (08:34→21:56)
[2016-11-06] MEDS: MONTELUKAST 10 MG TAB PO SCH (08:35)
[2016-11-06] MEDS: LORATADINE 10 MG TAB PO SCH (08:35)
[2016-11-06] MEDS: METOPROLOL TARTRATE 12.5 MG TAB PO SCH ×2 (10:54→21:56)
[2016-11-06] MEDS: LISINOPRIL 5 MG TAB PO SCH (12:10)
[2016-11-06] MEDS: METOPROLOL TARTRATE 25 MG TAB PO SCH (12:10)
[2016-11-06] MEDS: ONDANSETRON 4 MG/2 ML VIAL IVP PRN (12:49)
--- NOTE | 2016-11-06 12:57 | P.PN ---
Subjective Principal diagnosis: Chest discomfort This is a pleasant 60-year-old female patient with no significant past medical history who presented to the hospital with a chest discomfort. The EKG showed mild ST segment elevation anteriorly. The patient was taken emergently to the cardiac cath laboratory technician where she underwent a heart catheterization which showed myocardial bridging involving the mid LAD with evidence off broken heart syndrome. Subsequently the echocardiogram showed evidence of severe cardiomyopathy with wall motion abnormalities consistent with stress induced cardiomyopathy. The patient currently denies having any chest pain or discomfort or difficulty breathing. She continues to be very nauseated. She is on maximize medical treatment consistent with metoprolol, lisinopril, Aldactone, and antiplatelet. I will continue the current medical treatment. Possible discharge in the next 24 hours. We'll repeat the echocardiogram to see if there is any improvement in the LV function. Objective - Vital Signs Vital signs: Vital Signs Temp 98.3 F 11/06/16 04:00 Pulse 76 11/06/16 04:00 Resp 16 11/06/16 04:00 BP 90/53 11/06/16 04:00 Pulse Ox 97 11/06/16 04:00 Intake & Output 11/05/16 11/06/16 11/06/16 18:59 06:59 18:59 Intake Total 482 520 222 Output Total 200 450 Balance 282 70 222 Weight 54.3 kg 54.3 kg Intake: Intake, IV Titration 160 160 Amount Sodium Chloride 0.9% 1, 160 160 000 ml As IV .[facility] Rx#:[id number] Oral 322 360 222 Output: Urine 200 450 Other: Voiding Method Toilet Toilet # Voids 2 - Constitutional General appearance: Present: no acute distress - Respiratory Respiratory: bilateral: CTA - Cardiovascular Rhythm: regular Heart sounds: normal: S1, S2 - Labs CBC & Chem 7: 11/06/16 06:29 11/05/16 05:42 Assessment and Plan Plan: Assessment #1 stress induced cardiomyopathy Plan #1 maximize medical treatment #2 an echocardiogram was Doppler in the morning #3 follow-up with the patient
--- NOTE | 2016-11-06 13:36 | P.PN ---
Subjective Principal diagnosis: Stress induced cardiomyopathy; myocardial bridging. Patient is a 60-year-old female, patient of Dr. Alejandra in the outpatient setting, with medical history significant for recent pneumonia and pleurisy followed by Dr. Pulido in the outpatient setting, presenting to the emergency department with complaints of chest pain. Patient reports one previous episode of chest pain the day before she presented to the emergency department described as sharp pressure across her chest with some radiation to her neck and jaw. Chest x-ray with no evidence of acute pulmonary process. EKG with evidence of ST elevation in her anterior leads and was taken for emergent heart catheterization with findings of myocardial bridging involving the mid LAD with disease about 50%. Patient did have stress induced cardiomyopathy with severely impaired LV function and ejection fraction of about 25%. Patient tolerated procedure well. Echocardiogram obtained this morning with evidence of moderate to severe mitral regurgitation; moderate tricuspid regurgitation; mild pulmonary hypertension; markedly impaired left ventricular systolic function with an EF between 35-40%; possibly Takotsubo syndrome. 11/05/2016: Patient is reevaluated on selective care unit. Patient reports improvement in her chest pressure currently 1 out of 10. Patient continues to complain of mild nausea without vomiting. Denies chills, fevers, shortness of breath, abdominal pain, leg swelling, leg pain. Patient reports poor appetite. Patient is urinating without difficulty. Afebrile. Patient was noted to be slightly hypotensive this morning with blood pressure of 87/52. Orthostatic hypotension negative. Labs pending. 11/06/2016: Patient is reevaluated on selective care unit. Patient continues to complain of mild nausea without vomiting and decreased appetite. Denies chest pain. Afebrile. Blood pressure 90/53 with a mean of 65. Cardiology has evaluated patient with possible discharge the next 24 hours. Plans to repeat echocardiogram to see if there is any improvement in LV function. Objective - Vital Signs Vital signs: Vital Signs Temp 98.3 F 11/06/16 04:00 Pulse 76 11/06/16 04:00 Resp 16 11/06/16 04:00 BP 90/53 11/06/16 04:00 Pulse Ox 97 11/06/16 04:00 Intake & Output 11/05/16 11/06/16 11/06/16 18:59 06:59 18:59 Intake Total 482 520 222 Output Total 200 450 Balance 282 70 222 Weight 54.3 kg 54.3 kg Intake: Intake, IV Titration 160 160 Amount Sodium Chloride 0.9% 1, 160 160 000 ml As IV .[facility] Rx#:[id number] Oral 322 360 222 Output: Urine 200 450 Other: Voiding Method Toilet Toilet # Voids 2 - Exam GENERAL: Pt awake and alert, well-nourished, in no acute distress. HEAD: Atraumatic, normocephalic. EYES: Pupils equal, round, and reactive to light, extraocular movements intact, sclera anicteric, conjunctiva are normal. ENT: Oropharynx clear without exudates. Moist mucous membranes. NECK: Supple without lymphadenopathy or JVD. No carotid bruits. Thyroid midline , small and firm without palpable masses. LUNGS: Breath sounds clear to auscultation bilaterally. No wheezes, rales, or rhonchi. HEART: Heart S1, S2, no S3 or S4. Regular rate and rhythm. No murmurs, rubs or gallops. ABDOMEN: Soft, nontender, nondistended, normoactive bowel sounds. No guarding, no rebound. No masses or organomegaly appreciated. EXTREMITIES: 2+ peripheral pulses. No edema, clubbing or cyanosis. No calf tenderness. NEUROLOGICAL: Pt oriented x 3. Cranial nerves II through XII grossly intact. Strength and sensation grossly intact. PSYCH: Normal mood, normal affect. SKIN: Warm, dry, intact. Normal turgor. No rashes or lesions. - Labs CBC & Chem 7: 11/06/16 06:29 11/05/16 05:42 Assessment and Plan Plan: Impression and plan: 1. Chest pain suspect secondary to stress-induced cardiomyopathy, resolved. Cardiology service is on consult, recommendations noted. At this time, plan is to maximize medical therapy. Patient will undergo a repeat echocardiogram with Doppler tomorrow to reevaluate LV function. 2. Dyslipidemia. Continue Lipitor 80 mg daily. 3. Hypertensive urgency, present on arrival, resolved. 4. History of recent pneumonia and left-sided pleurisy. 5. History of nicotine dependence. 6. Nausea, improved. Continue Zofran. Continue Pepcid. Continue to monitor patient. Continue current medications. Continue supportive treatment and pain management. Continue GI and DVT prophylaxis. Continue to follow cardiology service. Possibly discharge home in next 24 hours. The above impression and plan have been discussed and directed by Dr. Rodarte. Mohan RUBIO acting as scribe for Dr. Rodarte.
[2016-11-06] MEDS: ALPRAZolam 0.25 MG TAB PO PRN (21:56)
[2016-11-07] MEDS: LISINOPRIL 2.5 MG TAB PO SCH (08:32)
[2016-11-07] MEDS: LORATADINE 10 MG TAB PO SCH (08:32)
[2016-11-07] MEDS: MONTELUKAST 10 MG TAB PO SCH (08:32)
[2016-11-07] MEDS: METOPROLOL TARTRATE 12.5 MG TAB PO SCH ×2 (08:32→20:01)
[2016-11-07] MEDS: ASPIRIN 81 MG CHEW PO SCH (08:32)
[2016-11-07] MEDS: ATORVASTATIN 80 MG TAB PO SCH (08:32)
[2016-11-07] MEDS: SPIRONOLACTONE 25 MG TAB PO SCH (08:32)
[2016-11-07] MEDS: FAMOTIDINE 20 MG TAB PO SCH ×2 (08:32→20:01)
[2016-11-07] MEDS: SYMBICORT 80-4.5 MCG INHALER INHALATION SCH ×2 (09:59→19:09)
--- NOTE | 2016-11-07 10:56 | P.PN ---
Subjective Principal diagnosis: Chest discomfort This is a pleasant 60-year-old female patient with no significant past medical history who presented to the hospital with a chest discomfort. The EKG showed mild ST segment elevation anteriorly. The patient was taken emergently to the cardiac medical lab technician where she underwent a heart catheterization which showed myocardial bridging involving the mid LAD with evidence off broken heart syndrome. Subsequently the echocardiogram showed evidence of severe cardiomyopathy with wall motion abnormalities consistent with stress induced cardiomyopathy. The patient currently denies having any chest pain or discomfort or difficulty breathing. She continues to be very nauseated. She is on maximize medical treatment consistent with metoprolol, lisinopril, Aldactone, and antiplatelet. I will continue the current medical treatment. The echocardiogram was repeated earlier today and I will follow-up with the results. Course the patient to get up and around and walk. Objective - Vital Signs Vital signs: Vital Signs Temp 97.7 F 11/07/16 10:45 Pulse 68 11/07/16 08:00 Resp 18 11/07/16 08:00 BP 94/66 11/07/16 10:45 Pulse Ox 94 L 11/07/16 08:00 Intake & Output 11/06/16 11/07/16 11/07/16 18:59 06:59 18:59 Intake Total 1464 220 720 Output Total 880 350 Balance 584 -130 720 Weight 54.3 kg 81.6 kg Intake: Intake, IV Titration 200 220 Amount Sodium Chloride 0.9% 1, 200 220 000 ml As IV .[facility] [place] Rx#:[id number] Oral 1264 720 Output: Urine 880 350 Other: Voiding Method Toilet Toilet Toilet # Voids 1 - Constitutional General appearance: Present: no acute distress - Respiratory Respiratory: bilateral: CTA - Cardiovascular Rhythm: regular Heart sounds: normal: S1, S2 - Labs CBC & Chem 7: 11/06/16 06:29 11/05/16 05:42 Assessment and Plan Plan: Assessment #1 stress induced cardiomyopathy Plan #1 maximize medical treatment #2 follow-up with echocardiogram which was performed this morning #3 follow-up with the patient
[2016-11-07 11:39] LABS: Anion Gap 7 mmol/L; Blood Urea Nitrogen 14 mg/dL (7-17); Calcium 8.8 mg/dL (8.4-10.2); Carbon Dioxide 25 mmol/L (22-30); Chloride 103 mmol/L (98-107); Glucose 77 mg/dL (74-99); Non-African American GFR(MDRD) >60 (>60 ml/min/1.73 sqM); Potassium 4.6 mmol/L (3.5-5.1); Sodium 135 mmol/L (137-145)
--- NOTE | 2016-11-07 12:54 | ECHOF ---
Referral Reason:heart failure reassesment MEASUREMENTS -------- HEIGHT: 157.5 cm WEIGHT: 54.0 kg BP: 96/58 RVIDd: 2.5 cm (< 3.3) IVSd: 1.1 cm (0.6 - 1.1) LVIDd: 4.3 cm (3.9 - 5.3) LVPWd: 1.1 cm (0.6 - 1.1) IVSs: 1.4 cm LVIDs: 2.8 cm LVPWs: 1.6 cm LA Diam: 3.3 cm (2.7 - 3.8) LAESV Index (A-L): 23.72 ml/m Ao Diam: 2.6 cm (2.0 - 3.7) AV Cusp: 1.9 cm (1.5 - 2.6) MV EXCURSION: 12.972 mm (> 18.000) MV EF SLOPE: 106 mm/s (70 - 150) EPSS: 0.4 cm MV E Frankie: 0.60 m/s MV DecT: 302 ms MV A Frankie: 0.93 m/s MV E/A Ratio: 0.65 RAP: 5.00 mmHg RVSP: 24.61 mmHg FINDINGS -------- Sinus rhythm. This was a technically good study. The left ventricular size is normal. There is borderline concentric left ventricular hypertrophy. Overall left ventricular systolic function is mild-moderately impaired with, an EF between 40 - 45 %. Apical anterior LV wall motion is hypokinetic. Apical lateral LV wall motion is hypokinetic. Apical inferior LV wall motion is hypokinetic. Apical septum LV wall motion is hypokinetic. The right ventricle is normal in size. Normal LA size by volume 22+/-6 ml/m2. The right atrium is normal in size. The aortic valve is trileaflet and appears structurally normal. The mitral valve leaflets are mildly thickened. Mild mitral regurgitation is present. Mild tricuspid regurgitation present. Right ventricular systolic pressure is normal at < 35 mmHg. The aortic root size is normal. Normal inferior vena cava with normal inspiratory collapse consistent with estimated right atrial pressure of 5 mmHg. There is no pericardial effusion. CONCLUSIONS -------- 1. Sinus rhythm. 2. The right ventricle is normal in size. 3. Normal LA size by volume 22+/-6 ml/m2. 4. The aortic valve is trileaflet and appears structurally normal. 5. The mitral valve leaflets are mildly thickened. 6. Mild mitral regurgitation is present. 7. Mild tricuspid regurgitation present. 8. Right ventricular systolic pressure is normal at < 35 mmHg. 9. The aortic root size is normal. 10. There is no pericardial effusion. 11. This was a technically good study. 12. The left ventricular size is normal. 13. There is borderline concentric left ventricular hypertrophy. 14. Overall left ventricular systolic function is mild-moderately impaired with, an EF between 40 - 45 %. 15. Apical anterior LV wall motion is hypokinetic. 16. Apical lateral LV wall motion is hypokinetic. 17. Apical inferior LV wall motion is hypokinetic. 18. Apical septum LV wall motion is hypokinetic. [employer] ATTENDANT: Sheila Ortega RDCS
--- NOTE | 2016-11-07 14:17 | P.PN ---
Subjective Principal diagnosis: Broken heart syndrome, nausea improved cardiac cath demonstrated clean coronaries, echocardiogram from this morning demonstrated mild to moderate cardiomyopathy EF approximately 45% Is significantly improved chest pain is minimal nausea minimal tolerating diet will continue to follow Objective - Vital Signs Vital signs: Vital Signs Temp 97.8 F 11/07/16 12:00 Pulse 64 11/07/16 12:00 Resp 16 11/07/16 12:00 BP 124/75 11/07/16 12:00 Pulse Ox 97 11/07/16 12:00 Intake & Output 11/06/16 11/07/16 11/07/16 18:59 06:59 18:59 Intake Total 1151 105 3793 Output Total 880 350 Balance 584 -130 1655 Weight 54.3 kg 81.6 kg Intake: Intake, IV Titration 200 220 120 Amount Sodium Chloride 0.9% 1, 200 220 120 000 ml As IV .[employer] ONE Rx#:[id number] Oral 1264 1535 Output: Urine 880 350 Other: Voiding Method Toilet Toilet Toilet # Voids 1 - Exam General: [Patient awake, alert and oriented times 3. Patient in no acute distress.] HEENT: [PERRL. EOMI. No pharyngeal erythema or exudate.] Neck: [No adenopathy.] Cardiac: [Heart regular in rate and rhythm. No S3. No S4. No clicks, rubs. No murmur.] Lungs: [Clear to auscultation bilaterally.] Abdomen: [No mass. No organomegaly. Bowel sounds presnt and normoactive in all 4 quadrants.] Extremes: [No edema no cyanosis no claudication normal pulses] : [] Musculoskeletal: [No joint erythema, edema or tenderness.] Skin: [No rash.] Neurologic: [No lateralizing deficits. CN II - XII grossly intact.] Lymphatic: [No adenopathy.] - Labs CBC & Chem 7: 11/06/16 06:29 11/07/16 11:00 Labs: Abnormal Lab Results - Last 24 Hours (Table) 11/07/16 Range/Units 11:00 Sodium 135 L (137-145) mmol/L Assessment and Plan (1) Myocardial bridge Narrative/Plan: Recent cardiac cath which was completely negative ,broken heart syndrome Status: Acute (2) Stress-induced cardiomyopathy Narrative/Plan: Demonstrates mild to moderate cardiomyopathy with an EF of 40-45% Status: Acute Plan: Maximize medical management, anticipate discharge home in the next 24-48 hours
[2016-11-07] MEDS: ALPRAZolam 0.25 MG TAB PO PRN (22:23)
[2016-11-08] MEDS: SYMBICORT 80-4.5 MCG INHALER INHALATION SCH ×2 (07:51→19:42)
[2016-11-08] MEDS: LORATADINE 10 MG TAB PO SCH (09:00)
[2016-11-08] MEDS: LISINOPRIL 2.5 MG TAB PO SCH (09:00)
[2016-11-08] MEDS: FAMOTIDINE 20 MG TAB PO SCH ×2 (09:00→20:51)
[2016-11-08] MEDS: MONTELUKAST 10 MG TAB PO SCH (09:00)
[2016-11-08] MEDS: ASPIRIN 81 MG CHEW PO SCH (09:00)
[2016-11-08] MEDS: ATORVASTATIN 80 MG TAB PO SCH (09:00)
[2016-11-08] MEDS: METOPROLOL TARTRATE 12.5 MG TAB PO SCH ×2 (09:00→20:51)
[2016-11-08] MEDS: SPIRONOLACTONE 25 MG TAB PO SCH (09:00)
--- NOTE | 2016-11-08 14:22 | P.PN ---
Subjective Principal diagnosis: Chest discomfort This is a pleasant 60-year-old female patient with no significant past medical history who presented to the hospital with a chest discomfort. The EKG showed mild ST segment elevation anteriorly. The patient was taken emergently to the cardiac corn lab technician where she underwent a heart catheterization which showed myocardial bridging involving the mid LAD with evidence off broken heart syndrome. Subsequently the echocardiogram showed evidence of severe cardiomyopathy with wall motion abnormalities consistent with stress induced cardiomyopathy. The patient currently denies having any chest pain or discomfort or difficulty breathing. She continues to be very nauseated. She is on maximize medical treatment consistent with metoprolol, lisinopril, Aldactone, and antiplatelet. Repeated echocardiogram on maximize medical treatment showed significant improvement in the LV function with an ejection fraction of 40-45%. I would continue the current medical treatment. The patient and be discharged tomorrow morning. There is no need to have a life vest. Objective - Vital Signs Vital signs: Vital Signs Temp 97.3 F L 11/08/16 10:09 Pulse 64 11/08/16 10:09 Resp 18 11/08/16 10:09 BP 100/60 11/08/16 10:09 Pulse Ox 95 11/08/16 10:09 Intake & Output 11/07/16 11/08/16 11/08/16 18:59 06:59 18:59 Intake Total 1655 125 Output Total 350 Balance 1305 125 Weight 81.4 kg Intake: Intake, IV Titration 120 Amount Sodium Chloride 0.9% 1, 120 000 ml As IV .[facility] ONE Rx#:[id number] Oral 1535 125 Output: Urine 350 Other: Voiding Method Toilet Toilet Toilet # Voids 1 1 - Constitutional General appearance: Present: no acute distress - Respiratory Respiratory: bilateral: CTA - Cardiovascular Rhythm: regular Heart sounds: normal: S1, S2 - Labs CBC & Chem 7: 11/06/16 06:29 11/07/16 11:00 Assessment and Plan Plan: Assessment #1 stress induced cardiomyopathy which has improved Plan #1 continue the current medical treatment. #2 the echo showed significant improvement in the LV function #3 the patient can be discharged home tomorrow.
--- NOTE | 2016-11-08 15:43 | P.PN ---
Subjective Principal diagnosis: Broken heart syndrome, nausea improved cardiac cath demonstrated clean coronaries, echocardiogram from this morning demonstrated mild to moderate cardiomyopathy EF approximately 45%,. Anticipate Patient going home tomorrow Is significantly improved chest pain is minimal nausea minimal tolerating diet will continue to follow Objective - Vital Signs Vital signs: Vital Signs Temp 98.0 F 11/08/16 12:00 Pulse 75 11/08/16 12:00 Resp 18 11/08/16 12:00 BP 121/75 11/08/16 12:00 Pulse Ox 95 11/08/16 10:09 Intake & Output 11/07/16 11/08/16 11/08/16 18:59 06:59 18:59 Intake Total 1655 685 Output Total 350 Balance 1305 685 Weight 81.4 kg Intake: Intake, IV Titration 120 Amount Sodium Chloride 0.9% 1, 120 000 ml As IV .[facility] ONE Rx#:[id number] Oral 1535 685 Output: Urine 350 Other: Voiding Method Toilet Toilet Toilet # Voids 1 1 2 - Exam General: [Patient awake, alert and oriented times 3. Patient in no acute distress.] HEENT: [PERRL. EOMI. No pharyngeal erythema or exudate.] Neck: [No adenopathy.] Cardiac: [Heart regular in rate and rhythm. No S3. No S4. No clicks, rubs. No murmur.] Lungs: [Clear to auscultation bilaterally.] Abdomen: [No mass. No organomegaly. Bowel sounds presnt and normoactive in all 4 quadrants.] Extremes: [No edema no cyanosis no claudication normal pulses] : [] Musculoskeletal: [No joint erythema, edema or tenderness.] Skin: [No rash.] Neurologic: [No lateralizing deficits. CN II - XII grossly intact.] Lymphatic: [No adenopathy.] - Labs CBC & Chem 7: 11/06/16 06:29 11/07/16 11:00 Assessment and Plan (1) Myocardial bridge Narrative/Plan: Recent cardiac cath which was completely negative ,broken heart syndrome likely, Status: Acute (2) Stress-induced cardiomyopathy Narrative/Plan: Demonstrates mild to moderate cardiomyopathy with an EF of 40-45% Status: Acute Plan: Maximize medical management, anticipate discharge home in the next 24-48 hours
[2016-11-08] MEDS: ALPRAZolam 0.25 MG TAB PO PRN (23:00)
[2016-11-09] MEDS: SYMBICORT 80-4.5 MCG INHALER INHALATION SCH (08:06)
[2016-11-09] MEDS: MONTELUKAST 10 MG TAB PO SCH (08:47)
[2016-11-09] MEDS: FAMOTIDINE 20 MG TAB PO SCH (08:47)
[2016-11-09] MEDS: ASPIRIN 81 MG CHEW PO SCH (08:47)
[2016-11-09] MEDS: METOPROLOL TARTRATE 12.5 MG TAB PO SCH (08:47)
[2016-11-09] MEDS: SPIRONOLACTONE 25 MG TAB PO SCH (08:47)
[2016-11-09] MEDS: LORATADINE 10 MG TAB PO SCH (08:47)
[2016-11-09] MEDS: LISINOPRIL 2.5 MG TAB PO SCH (08:47)
[2016-11-09] MEDS: ATORVASTATIN 80 MG TAB PO SCH (08:47)
[2016-11-09 08:57] VITALS: RESP 20
[2016-11-09 11:39] VITALS: BP 117/77; PULSE 82; TEMP 96.6
--- NOTE | 2016-11-09 12:23 | P.DS ---
Providers Date of admission: 11/03/16 22:16 Expected date of discharge: 11/09/16 Attending physician: Prakash Alejandra Consults: Cardiology service Primary care physician: Prakash Alejandra [facility] Course: Patient is a 60-year-old female, patient of Dr. Alejandra in the outpatient setting, with medical history significant for recent pneumonia and pleurisy followed by Dr. Pulido in the outpatient setting, presenting to the emergency department with complaints of chest pain. Patient was taken for emergent heart catheterization with findings of myocardial bridging involving the mid LAD with disease about 50% and stress induced cardiomyopathy with severely impaired LV function and ejection fraction of about 25% with evidence of broken heart syndrome. Patient tolerated procedure well. Repeat echocardiogram with improved EF of 40-45%. Patient did experience severe nausea for a couple days after her procedure which improved prior to discharge. Patient was evaluated by cardiology who recommended maximum medical therapy consistent with metoprolol, lisinopril, Aldactone, and antiplatelet. Patient was deemed stable for discharge with close follow-up with outpatient setting. Discharge diagnoses: 1. Stress cardiomyopathy, improved. 2. Dyslipidemia. 3. Hypertensive urgency, present on arrival, resolved. 4. History of recent pneumonia and left-sided pleurisy. 5. History of nicotine dependence. 6. Nausea, resolved. 7. Anxiety, stable. The above impression and plan have been discussed and directed by Dr. Alejandra. Mohan RUBIO acting as scribe for Dr. Alejandra. Pertinent Studies: Chest x-ray; EKG; echocardiogram with Doppler Procedures: Heart catheterization Patient Condition at Discharge: Good Plan - Discharge Summary New Discharge Prescriptions: ALPRAZolam [Xanax] 0.25 mg PO BID PRN #14 tab PRN Reason: Anxiety Aspirin 81 mg PO DAILY #30 chew Atorvastatin [Lipitor] 80 mg PO DAILY #30 tab Lisinopril [Zestril] 2.5 mg PO DAILY #30 tab Metoprolol Tartrate [Lopressor] 12.5 mg PO BID #60 tab Spironolactone [Aldactone] 25 mg PO DAILY #30 tab Discharge Medication List Albuterol Inhaler [Ventolin Hfa Inhaler] 1 - 2 puff INHALATION RT-Q6H PRN [History] Fluticasone/Salmeterol [Advair 250-50 Diskus] 1 puff INHALATION RT-BID 11/03/16 [History] Loratadine [Claritin] 10 mg PO DAILY 11/03/16 [History] Montelukast Sodium [Singulair] 10 mg PO DAILY 11/03/16 [History] ALPRAZolam [Xanax] 0.25 mg PO BID PRN #14 tab 11/09/16 [Rx] Aspirin 81 mg PO DAILY #30 chew 11/09/16 [Rx] Atorvastatin [Lipitor] 80 mg PO DAILY #30 tab 11/09/16 [Rx] Lisinopril [Zestril] 2.5 mg PO DAILY #30 tab 11/09/16 [Rx] Metoprolol Tartrate [Lopressor] 12.5 mg PO BID #60 tab 11/09/16 [Rx] Spironolactone [Aldactone] 25 mg PO DAILY #30 tab 11/09/16 [Rx] Follow up Appointment(s)/Referral(s): Joe Hanson MD [STAFF PHYSICIAN] - 11/16/16 1:00 pm Prakash Alejandra MD [Primary Care Provider] - 11/17/16 1:45 pm Patient Instructions/Handouts: *Surgery [facility] - After Heart Catheterization - Packager Head Instructions Activity/Diet/Wound Care/Special Instructions: Remain off work until follow-up with Dr. Alejandra. Discharge Disposition: HOME SELF-CARE
--- NOTE | 2016-11-09 14:49 | P.PN ---
Subjective Principal diagnosis: Stress cardiomyopathy This is a pleasant 60-year-old female patient with no significant past medical history presented to the emergency room complaining of chest discomfort.She has been experiencing intermittent episodes of chest discomfort over the last week. She describes the discomfort as a pressure across the chest with some radiation to the neck and to the jaw. Yesterday the discomfort was quite severe where she decided to come in to the emergency room. In the ER the EKG showed sinus rhythm with ST segment elevation in the anterior leads. In view of the ongoing chest discomfort with decided to pursue with a heart catheterization. 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 The left ventriculography showed evidence of stress-induced cardiomyopathy with severely impaired LV function and ejection fraction of about 25%.Maximize medical treatment is recommended. Repeat echocardiogram with Doppler study was performed and reviewed by Dr. Patel which revealed an ejection fraction of 45%. Patient may be able to be discharged home today from cardiology's perspective, a follow-up appointment will be made with Dr. Patel in the office post discharge. Objective - Vital Signs Vital signs: Vital Signs Temp 96.6 F L 11/09/16 11:38 Pulse 82 11/09/16 11:38 Resp 20 11/09/16 11:38 BP 117/77 11/09/16 11:38 Pulse Ox 95 11/09/16 11:38 Intake & Output 11/08/16 11/09/16 11/09/16 18:59 06:59 18:59 Intake Total 925 Balance 925 Weight 54.5 kg 54.5 kg Intake: Oral 925 Other: Voiding Method Toilet Toilet # Voids 2 1 - Exam PHYSICAL EXAMINATION: HEENT: Head is atraumatic, normocephalic. Pupils equal, round. Neck is supple. There is no elevated jugular venous pressure. HEART EXAMINATION: Heart S1 and S2 systolic murmur is heard. CHEST EXAMINATION: Lungs are clear to auscultation and precussion. Positive chest wall tenderness is noted on palpation or with deep breathing. ABDOMEN: Soft, nontender. Bowel sounds are heard. No organomegaly noted. Right groin soft, no evidence of any hematoma. EXTREMITIES: 2+ peripheral pulses with no evidence of peripheral edema and no calf tenderness noted. NEUROLOGIC patient is awake, alert and oriented -3. . - Labs CBC & Chem 7: 11/06/16 06:29 11/07/16 11:00 Assessment and Plan (1) Stress-induced cardiomyopathy Status: Acute (2) Myocardial bridge Status: Acute (3) S/P cardiac cath Status: Acute Plan: From cardiology's perspective, we will continue the patient on her current medications including aspirin 325 mg daily, Lipitor 80 mg daily, lisinopril to 2 -1/2 mg daily,Aldactone 25mg daily, metoprolol tartrate 12-1/2 mg one tablet by mouth twice a day. She may be able to be discharged home today from cardiology's perspective. We will make her a follow-up appointment to see Dr. Patel in the office post discharge. DNP note has been reviewed, I agree with a documented findings and plan of care. Patient was seen and examined.
== END 2016-11-09 13:03 | disposition home or self-care (01) | DRG 287 ==
LOC: EC 21:48 → 6ICU 22:16 → 6SEL 23:15
PROVIDERS: ADMIT Family Medicine; ATTEND Family Medicine
PROC: B2111ZZ Fluoroscopy of Multiple Coronary Arteries using Low Osmolar Contrast (ICD-10-PCS; 2016-11-03)
PROC: B2151ZZ Fluoroscopy of Left Heart using Low Osmolar Contrast (ICD-10-PCS; 2016-11-03)
PROC: 4A023N7 Measurement of Cardiac Sampling and Pressure, Left Heart, Percutaneous Approach (ICD-10-PCS; principal; 2016-11-03 22:40)
DX: I51.81 Takotsubo syndrome (principal); Q24.5 Malformation of coronary vessels; I27.2 Other secondary pulmonary hypertension; E78.5 Hyperlipidemia, unspecified; I08.1 Rheumatic disorders of both mitral and tricuspid valves; F41.9 Anxiety disorder, unspecified; I16.0 Hypertensive urgency; R11.2 Nausea with vomiting, unspecified; I10 Essential (primary) hypertension; Z79.899 Other long term (current) drug therapy; Z87.891 Personal history of nicotine dependence; Z88.6 Allergy status to analgesic agent; Z88.5 Allergy status to narcotic agent; Z88.2 Allergy status to sulfonamides; Z88.8 Allergy status to other drugs, medicaments and biological substances; Z82.49 Family history of ischemic heart disease and other diseases of the circulatory system
CPT/HCPCS: 71010; 80048; 80053; 80061; 82550; 82553; 83690; 83735; 83880; 84484; 85025; 85049; 85379; 85730; 93005; 93306; 93458; 96374; 96375; 99285; 99291

== ENCOUNTER 2017-02-09 09:02 | Observation (INO) | payer BC ==
[2017-02-09 09:40] LABS: Basophils # (A) 0.1 k/uL (0-0.2); Basophils % (A) 2 %; CH 34.4; Eosinophils # (A) 0.6 k/uL (0-0.7); Eosinophils % (A) 13 %; HCT 39.7 % (34.0-46.0); HDW 2.36; HGB 13.2 gm/dL (11.4-16.0); Luc # (Auto) 0.12; Luc % (Auto) 3; Lymphocytes % (A) 20 %; MCH 32.9 pg (25.0-35.0); MCHC 33.3 g/dL (31.0-37.0); MCV 98.8 fL (80.0-100.0); Mean Platelet Volume 7.7; Monocytes # (A) 0.3 k/uL (0-1.0); Monocytes % (A) 6 %; Neutrophils # (A) 2.7 k/uL (1.3-7.7); Neutrophils % (A) 57 %; RBC 4.02 m/uL (3.80-5.40); RDW 13.6 % (11.5-15.5); WBC 4.8 k/uL (3.8-10.6); WBC (Perox) 4.89
--- NOTE | 2017-02-09 09:46 | XR ---
EXAMINATION TYPE: XR chest 2V DATE OF EXAM: 02/09/2017 COMPARISON: 06/03/2016 TECHNIQUE: PA and lateral views submitted. HISTORY: Chest pain FINDINGS: The lungs are clear and there is no pneumothorax, pleural effusion, or focal pneumonia. Hypertrophi c and degenerative change of the spine. IMPRESSION: 1. No acute process.
[2017-02-09 09:52] LABS: ALT 34 U/L (9-52); AST 29 U/L (14-36); Alkaline Phosphatase 58 U/L (38-126); Anion Gap 8 mmol/L; Blood Urea Nitrogen 16 mg/dL (7-17); Calcium 8.9 mg/dL (8.4-10.2); Carbon Dioxide 25 mmol/L (22-30); Chloride 101 mmol/L (98-107); Glucose 85 mg/dL (74-99); Magnesium 1.6 mg/dL (1.6-2.3); Non-African American GFR(MDRD) >60 (>60 ml/min/1.73 sqM); Potassium 4.5 mmol/L (3.5-5.1); Sodium 134 mmol/L (137-145); Total Bilirubin 0.5 mg/dL (0.2-1.3); Total Protein 6.4 g/dL (6.3-8.2)
[2017-02-09 09:54] LABS: Partial Thromboplastin Time 22.9 sec (22.0-30.0); Prothrombin Time 10.1 sec (9.0-12.0)
[2017-02-09 10:09] LABS: Creatine Kinase 75 U/L (30-135)
[2017-02-09 10:22] LABS: Creatine Kinase MB 1.5 ng/mL (0.0-2.4); Troponin I <0.012 ng/mL (0.000-0.034)
--- NOTE | 2017-02-09 11:32 | P.CRDCN ---
History of Present Illness Consult date: 02/09/17 Chief complaint: Chest discomfort History of present illness: This is a pleasant 62-year-old female patient who was admitted to the hospital in November 2016 with acute coronary syndrome and at that point she underwent a heart catheterization and echocardiogram and that showed stress- induced cardiomyopathy and the heart catheterization showed what it seems to be myocardial bridging involving the LAD with lesion in the mid LAD about 50%. Maximize medical treatment was recommended and the patient was discharged home in stable medical condition. She was in her usual state of health until earlier today when she was in the cardiac rehab and she was experiencing chest discomfort described as a burning across the chest. The EKG showed some changes in the inferior leads but the EKG in the emergency room showed normal sinus mechanism without any changes. She underwent one set of cardiac enzyme came in to be unremarkable. The patient continues to be pain-free at this point of time. I recommended the patient to be admitted to the hospital for additional 24 hours. We'll rule out acute coronary syndrome Y serial cardiac enzymes. I will obtain an echocardiogram to assess the LV function. We'll continue following up with her. Past Medical History Past Medical History: Atrial Fibrillation, Asthma, Coronary Artery Disease (CAD) , Hyperlipidemia, Hypertension, Myocardial Infarction ([place]) History of Any Multi-Drug Resistant Organisms: None Reported Past Surgical History: Section, Heart Catheterization, Hysterectomy, Tonsillectomy Past Anesthesia/Blood Transfusion Reactions: Postoperative Nausea & Vomiting ( PONV) Past Psychological History: No Psychological Hx Reported Smoking Status: Former smoker Past Alcohol Use History: Occasional Past Drug Use History: None Reported - Past Family History Mother Family Medical History: Cancer Father Family Medical History: Congestive Heart Failure (CHF) Medications and Allergies Home Medications Medication Instructions Recorded Confirmed Type Albuterol Inhaler [Ventolin Hfa 1 - 2 puff INHALATION RT-Q6H PRN 11/03/16 History Inhaler] Fluticasone/Salmeterol [Advair 1 puff INHALATION RT-BID 11/03/16 11/03/16 History 250-50 Diskus] Loratadine [Claritin] 10 mg PO DAILY 11/03/16 11/03/16 History Montelukast Sodium [Singulair] 10 mg PO DAILY 11/03/16 11/03/16 History Allergies Allergy/AdvReac Type Severity Reaction Status Date / Time pentazocine [From Talwin] Allergy Dyspnea Verified 02/09/17 09:08 Sulfa (Sulfonamide Allergy Rash/Hives Verified 02/09/17 09:08 Antibiotics) aspirin AdvReac Nausea Verified 02/09/17 09:08 meperidine [From Demerol] AdvReac Vomiting Verified 02/09/17 09:08 Physical Exam Vitals: Vital Signs Temp Pulse Resp BP Pulse Ox 02/09/17 09:52 69 16 152/82 02/09/17 09:06 98.3 F 68 18 150/72 99 Intake and Output 02/08/17 02/09/17 02/09/17 22:59 06:59 14:59 Other: Weight 54.431 kg Patient Weight 02/10/17 06:59 Weight 54.431 kg - Constitutional General appearance: no acute distress - Respiratory Respiratory: bilateral: CTA - Cardiovascular Rhythm: regular Heart sounds: normal: S1, S2 Results 02/09/17 09:30 02/09/17 09:30 Cardiac Enzymes 02/09/17 02/09/17 Range/Units 09:30 09:30 AST 29 (14-36) U/L CK-MB (CK-2) 1.5 (0.0-2.4) ng/mL Troponin I <0.012 (0.000-0.034) ng/mL Coagulation 02/09/17 Range/Units 09:30 PT 10.1 (9.0-12.0) sec APTT 22.9 (22.0-30.0) sec CBC 02/09/17 Range/Units 09:30 WBC 4.8 (3.8-10.6) k/uL RBC 4.02 (3.80-5.40) m/uL Hgb 13.2 (11.4-16.0) gm/dL Hct 39.7 (34.0-46.0) % Plt Count 221 (150-450) k/uL Comprehensive Metabolic Panel 02/09/17 Range/Units 09:30 Sodium 134 L (137-145) mmol/L Potassium 4.5 (3.5-5.1) mmol/L Chloride 101 (98-107) mmol/L Carbon Dioxide 25 (22-30) mmol/L BUN 16 (7-17) mg/dL Creatinine 0.79 (0.52-1.04) mg/dL Glucose 85 (74-99) mg/dL Calcium 8.9 (8.4-10.2) mg/dL AST 29 (14-36) U/L ALT 34 (9-52) U/L Alkaline Phosphatase 58 (38-126) U/L Total Protein 6.4 (6.3-8.2) g/dL Albumin 4.0 (3.5-5.0) g/dL Intake and Output 02/08/17 02/09/17 02/09/17 22:59 06:59 14:59 Other: Weight 54.431 kg Patient Weight 02/10/17 06:59 Weight 54.431 kg 02/09/17 09:30 02/09/17 09:30 Assessment and Plan Plan: This is a pleasant 62-year-old female patient with a history of stress induced cardiomyopathy came in was chest discomfort. I will obtain serial cardiac enzymes. Obtain echocardiogram was Doppler. And follow-up with the patient.
[2017-02-09] MEDS ORDERED: ONDANSETRON 4 MG/2 ML VIAL IVP PRN (11:39)
[2017-02-09] MEDS ORDERED: NALOXONE 0.4 MG/ML 1 ML VIAL IV PRN (11:39)
[2017-02-09] MEDS ORDERED: ALPRAZolam 0.25 MG TAB PO PRN (11:42)
[2017-02-09] MEDS ORDERED: DEXTROSE 5%-0.45% NACL 1,000 ML IV SCH (11:45)
--- NOTE | 2017-02-09 11:45 | ED ---
General Adult HPI - General Chief complaint: Chest Pain Stated complaint: Animal Stunner Sent Time Seen by Provider: 02/09/17 09:11 Source: patient, RN notes reviewed, old records reviewed Mode of arrival: ambulatory Limitations: no limitations - History of Present Illness Initial comments: 61-year-old female presents with chest pain from cardiac rehab. Patient complains of burning chest pressure and shortness of breath with pain radiating to her jaw. She was sent for this pain as well as EKG changes. Patient did have an MRI in November 2016. There was no intervention at that time. She has a reduced ejection fraction, most recent echo shows EF of 35-40%. Patient denies nausea or vomiting with these symptoms. States she did feel diaphoretic at the time. Pain is nearly completely resolved at the time my evaluation. She has past medical history of asthma. EKG at cardiac rehab show T-wave inversions in II and III. - Related Data Home Medications Medication Instructions Recorded Confirmed Albuterol Inhaler [Ventolin Hfa 1 - 2 puff INHALATION RT-Q6H PRN 11/03/16 Inhaler] Fluticasone/Salmeterol [Advair 1 puff INHALATION RT-BID 11/03/16 11/03/16 250-50 Diskus] Loratadine [Claritin] 10 mg PO DAILY 11/03/16 11/03/16 Montelukast Sodium [Singulair] 10 mg PO DAILY 11/03/16 11/03/16 Previous Rx's Medication Instructions Recorded ALPRAZolam [Xanax] 0.25 mg PO BID PRN #14 tab 11/09/16 Aspirin 81 mg PO DAILY #30 chew 11/09/16 Atorvastatin [Lipitor] 80 mg PO DAILY #30 tab 11/09/16 Lisinopril [Zestril] 2.5 mg PO DAILY #30 tab 11/09/16 Metoprolol Tartrate [Lopressor] 12.5 mg PO BID #60 tab 11/09/16 Spironolactone [Aldactone] 25 mg PO DAILY #30 tab 11/09/16 Allergies Allergy/AdvReac Type Severity Reaction Status Date / Time pentazocine [From Gonzalo] Allergy Dyspnea Verified 02/09/17 09:08 Sulfa (Sulfonamide Allergy Rash/Hives Verified 02/09/17 09:08 Antibiotics) aspirin AdvReac Nausea Verified 02/09/17 09:08 meperidine [From Demerol] AdvReac Vomiting Verified 02/09/17 09:08 Review of Systems ROS Statement: Those systems with pertinent positive or pertinent negative responses have been documented in the HPI. ROS Other: All systems not noted in ROS Statement are negative. Past Medical History Past Medical History: Atrial Fibrillation, Asthma, Coronary Artery Disease (CAD) , Hyperlipidemia, Hypertension, Myocardial Infarction ([place]) History of Any Multi-Drug Resistant Organisms: None Reported Past Surgical History: Section, Heart Catheterization, Hysterectomy, Tonsillectomy Past Anesthesia/Blood Transfusion Reactions: Postoperative Nausea & Vomiting ( PONV) Past Psychological History: No Psychological Hx Reported Smoking Status: Former smoker Past Alcohol Use History: Occasional Past Drug Use History: None Reported - Past Family History Mother Family Medical History: Cancer Father Family Medical History: Congestive Heart Failure (CHF) General Exam Limitations: no limitations General appearance: alert, in no apparent distress Head exam: Present: atraumatic, normocephalic Eye exam: Present: normal appearance, PERRL ENT exam: Present: normal exam, mucous membranes moist Neck exam: Present: normal inspection. Absent: tenderness, meningismus Respiratory exam: Present: normal lung sounds bilaterally. Absent: respiratory distress, wheezes Cardiovascular Exam: Present: regular rate, normal rhythm, normal heart sounds GI/Abdominal exam: Present: soft. Absent: distended, tenderness Extremities exam: Present: normal inspection, normal capillary refill. Absent: pedal edema Back exam: Present: normal inspection Neurological exam: Present: alert, oriented X3. Absent: CN II-XII intact, motor sensory deficit Psychiatric exam: Present: normal affect, normal mood Skin exam: Present: warm, dry. Absent: cyanosis, diaphoretic Course Vital Signs 02/09/17 02/09/17 09:06 09:52 Temperature 98.3 F Pulse Rate 68 69 Respiratory 18 16 Rate Blood Pressure 150/72 152/82 O2 Sat by Pulse 99 Oximetry - Reevaluation(s) Reevaluation #1: 02/09/17 11:47 Patient is evaluated in the emergency department by cardiology. EKG Findings - EKG Comments: EKG Findings:: EKG obtained at 9:42 AM shows normal sinus rhythm, ventricular rate is 65, WA interval 142, QRS duration 80, QTC 424, there is no signs of acute ischemia, no T-wave abnormalities. This EKG is compared to EKG from November 04 and is unchanged. Medical Decision Making - Medical Decision Making 61-year-old female presenting with chest pain and EKG changes from cardiac rehab. EKG obtained in the emergency Department is nonischemic. Patient has minimal to no chest pain at this time. Laboratory studies including cardiac enzymes is unremarkable. Chest x-ray shows no acute process. Case is discussed with cardiology Dr. Hanson, who evaluates the patient in the emergency department. Patient will be placed in observation for serial cardiac enzymes. Diagnosis: Chest pain - Lab Data Result diagrams: 02/09/17 09:30 02/09/17 09:30 Lab Results 02/09/17 02/09/17 02/09/17 Range/Units 09:30 09:30 09:30 WBC 4.8 (3.8-10.6) k/uL RBC 4.02 (3.80-5.40) m/uL Hgb 13.2 (11.4-16.0) gm/dL Hct 39.7 (34.0-46.0) % MCV 98.8 (80.0-100.0) fL MCH 32.9 (25.0-35.0) pg MCHC 33.3 (31.0-37.0) g/dL RDW 13.6 (11.5-15.5) % Plt Count 221 (150-450) k/uL Neutrophils % 57 % Lymphocytes % 20 % Monocytes % 6 % Eosinophils % 13 % Basophils % 2 % Neutrophils # 2.7 (1.3-7.7) k/uL Lymphocytes # 1.0 (1.0-4.8) k/uL Monocytes # 0.3 (0-1.0) k/uL Eosinophils # 0.6 (0-0.7) k/uL Basophils # 0.1 (0-0.2) k/uL PT (9.0-12.0) sec INR (<1.2) APTT (22.0-30.0) sec D-Dimer (<0.60) mg/L FEU Sodium 134 L (137-145) mmol/L Potassium 4.5 (3.5-5.1) mmol/L Chloride 101 (98-107) mmol/L Carbon Dioxide 25 (22-30) mmol/L Anion Gap 8 mmol/L BUN 16 (7-17) mg/dL Creatinine 0.79 (0.52-1.04) mg/dL Est GFR (MDRD) Af Amer >60 (>60 ml/min/1.73 sqM) Est GFR (MDRD) Non-Af >60 (>60 ml/min/1.73 sqM) Glucose 85 (74-99) mg/dL Calcium 8.9 (8.4-10.2) mg/dL Magnesium 1.6 (1.6-2.3) mg/dL Total Bilirubin 0.5 (0.2-1.3) mg/dL AST 29 (14-36) U/L ALT 34 (9-52) U/L Alkaline Phosphatase 58 (38-126) U/L Total Creatine Kinase 75 (30-135) U/L CK-MB (CK-2) 1.5 (0.0-2.4) ng/mL CK-MB (CK-2) Rel Index 2.0 Troponin I <0.012 (0.000-0.034) ng/mL NT-Pro-B Natriuret Pep pg/mL Total Protein 6.4 (6.3-8.2) g/dL Albumin 4.0 (3.5-5.0) g/dL Lipase 96 (23-300) U/L 02/09/17 02/09/17 Range/Units 09:30 09:30 WBC (3.8-10.6) k/uL RBC (3.80-5.40) m/uL Hgb (11.4-16.0) gm/dL Hct (34.0-46.0) % MCV (80.0-100.0) fL MCH (25.0-35.0) pg MCHC (31.0-37.0) g/dL RDW (11.5-15.5) % Plt Count (150-450) k/uL Neutrophils % % Lymphocytes % % Monocytes % % Eosinophils % % Basophils % % Neutrophils # (1.3-7.7) k/uL Lymphocytes # (1.0-4.8) k/uL Monocytes # (0-1.0) k/uL Eosinophils # (0-0.7) k/uL Basophils # (0-0.2) k/uL PT 10.1 (9.0-12.0) sec INR 1.0 (<1.2) APTT 22.9 (22.0-30.0) sec D-Dimer 0.20 (<0.60) mg/L FEU Sodium (137-145) mmol/L Potassium (3.5-5.1) mmol/L Chloride (98-107) mmol/L Carbon Dioxide (22-30) mmol/L Anion Gap mmol/L BUN (7-17) mg/dL Creatinine (0.52-1.04) mg/dL Est GFR (MDRD) Af Amer (>60 ml/min/1.73 sqM) Est GFR (MDRD) Non-Af (>60 ml/min/1.73 sqM) Glucose (74-99) mg/dL Calcium (8.4-10.2) mg/dL Magnesium (1.6-2.3) mg/dL Total Bilirubin (0.2-1.3) mg/dL AST (14-36) U/L ALT (9-52) U/L Alkaline Phosphatase (38-126) U/L Total Creatine Kinase (30-135) U/L CK-MB (CK-2) (0.0-2.4) ng/mL CK-MB (CK-2) Rel Index Troponin I (0.000-0.034) ng/mL NT-Pro-B Natriuret Pep 609 pg/mL Total Protein (6.3-8.2) g/dL Albumin (3.5-5.0) g/dL Lipase (23-300) U/L Disposition Clinical Impression: Chest pain Disposition: ADMITTED IP TO THIS HOSP Condition: Stable Referrals: Prakash Alejandra MD [Primary Care Provider] - 1-2 days Decision to Admit Reason: Admit from EC Decision Date: 02/09/17 Decision Time: 11:20
[2017-02-09] MEDS: METOPROLOL TARTRATE 12.5 MG TAB PO SCH (15:04)
[2017-02-09] MEDS: LISINOPRIL 2.5 MG TAB PO SCH (15:04)
[2017-02-09 15:28] LABS: Creatine Kinase 71 U/L (30-135)
[2017-02-09 15:42] LABS: Creatine Kinase MB 1.5 ng/mL (0.0-2.4); Troponin I <0.012 ng/mL (0.000-0.034)
[2017-02-09] MEDS ORDERED: ALBUTEROL NEBULIZED 2.5 MG/3 ML INHALATION PRN (17:27)
[2017-02-09] MEDS ORDERED: METOPROLOL TARTRATE 12.5 MG TAB PO SCH (21:00)
[2017-02-09] MEDS ORDERED: ATORVASTATIN 80 MG TAB PO SCH (21:00)
[2017-02-09] MEDS ORDERED: LORATADINE 10 MG TAB PO SCH (21:00)
[2017-02-09 21:43] LABS: Creatine Kinase 73 U/L (30-135)
[2017-02-09] MEDS: SYMBICORT 80-4.5 MCG INHALER INHALATION SCH (21:43)
[2017-02-09 21:57] LABS: Creatine Kinase MB 1.5 ng/mL (0.0-2.4); Troponin I <0.012 ng/mL (0.000-0.034)
[2017-02-10] MEDS: SYMBICORT 80-4.5 MCG INHALER INHALATION SCH (08:24)
[2017-02-10 08:39] VITALS: RESP 14
[2017-02-10] MEDS ORDERED: ASPIRIN 81 MG CHEW PO SCH (09:00)
[2017-02-10] MEDS ORDERED: ATORVASTATIN 80 MG TAB PO SCH (09:00)
[2017-02-10] MEDS ORDERED: LISINOPRIL 2.5 MG TAB PO SCH (09:00)
--- NOTE | 2017-02-10 10:02 | P.PN ---
Subjective This is a 62-year-old female who presented to the hospital from cardiac rehab with complaints of burning across the chest. Per the patient they noticed some T-wave inversions on her EKG and that is why they instructed her to calm to the ED. EKG here shows a normal sinus mechanism without any acute changes. She has been observed overnight. Cardiac enzymes are negative 3. She denies any further episodes of chest pain, shortness of breath, dizziness, nausea or diaphoresis. Repeat echocardiogram has been done and shows an ejection fraction of 45-50% with moderate MR. These findings are consistent with previous echocardiogram obtained in the office 02/01/[address] Hanson. This time the patient is stable to be discharged home to follow-up with Dr. Hanson in 2 weeks. Objective - Vital Signs Vital signs: Vital Signs Temp 97.5 F L 02/10/17 08:00 Pulse 76 02/10/17 08:00 Resp 14 02/10/17 08:00 BP 117/69 02/10/17 08:00 Pulse Ox 96 02/10/17 08:00 Intake & Output 02/09/17 02/10/17 02/10/17 18:59 06:59 18:59 Intake Total 640 Balance 640 Weight 55.2 kg Intake: Intake, IV Titration 240 Amount Dextrose 5%-0.45% NaCl 1, 240 000 ml @ 20 mls/hr IV . Q24H [facility] Rx#:[id number] Oral 400 Other: Voiding Method Toilet Toilet # Voids 1 2 - Exam GENERAL: Well-appearing, well-nourished and in no acute distress. NECK: Supple without JVD or thyromegaly. LUNGS: Breath sounds clear to auscultation bilaterally and equal. No wheezes, rales or rhonchi. HEART: Regular rate and rhythm without murmurs, rubs or gallops. S1 and S2 heard. ABDOMEN: Soft, nontender, normoactive bowel sounds. EXTREMITIES: Normal range of motion, no edema. No clubbing or cyanosis. Peripheral pulses intact and strong. - Labs CBC & Chem 7: 02/09/17 09:30 02/09/17 09:30 Assessment and Plan Plan: ASSESSMENT 1. Nonischemic cardiomyopathy 2. Coronary myocardial bridge. PLAN 1. Echocardiogram remains stable LV function on current medical regimen. Troponins are negative 3. Patient is stable and appropriate for discharge home at this time Dr. Hanson has been notified of the echocardiogram results. She can follow-up with him in the office in 2 weeks.
[2017-02-10] MEDS: METOPROLOL TARTRATE 12.5 MG TAB PO SCH (10:22)
[2017-02-10] MEDS: LISINOPRIL 2.5 MG TAB PO SCH (10:22)
--- NOTE | 2017-02-10 10:56 | ECHOF ---
Referral Reason:chest pain MEASUREMENTS -------- HEIGHT: 157.5 cm WEIGHT: 54.4 kg BP: 144/81 IVSd: 0.9 cm (0.6 - 1.1) LVIDd: 3.9 cm (3.9 - 5.3) LVPWd: 1.2 cm (0.6 - 1.1) IVSs: 1.4 cm LVIDs: 2.7 cm LVPWs: 1.5 cm LAESV Index (A-L): 14.70 ml/m Ao Diam: 2.6 cm (2.0 - 3.7) AV Cusp: 1.9 cm (1.5 - 2.6) LA Diam: 2.4 cm (2.7 - 3.8) MV EXCURSION: 11.714 mm (> 18.000) MV EF SLOPE: 66 mm/s (70 - 150) EPSS: 0.5 cm MV E Frankie: 0.53 m/s MV DecT: 296 ms MV A Frankie: 0.65 m/s MV E/A Ratio: 0.83 RAP: 5.00 mmHg RVSP: 22.54 mmHg FINDINGS -------- Sinus rhythm. This was a technically good study. Left ventricular wall thickness is normal. Overall left ventricular systolic function is mildly impaired with, an EF between 45 - 50 %. The right ventricle is normal in size and function. The left atrium is normal in size. The right atrium is normal in size. The aortic valve is trileaflet, and appears structurally normal. No aortic stenosis or regurgitation. Moderate mitral regurgitation is present. Cannot exclude mitral valve prolapse. Mild tricuspid regurgitation present. The right ventricular systolic pressure, as measured by Doppler, is 22.54mmHg. Pulmonic valve appears structurally normal. The aortic root size is normal. Normal inferior vena cava with normal inspiratory collapse consistent with estimated right atrial pressure of 5 mmHg. The pericardium is normal. CONCLUSIONS -------- 1. Sinus rhythm. 2. Mild tricuspid regurgitation present. 3. The right ventricular systolic pressure, as measured by Doppler, is 22.54mmHg. 4. Pulmonic valve appears structurally normal. 5. The aortic root size is normal. 6. Normal inferior vena cava with normal inspiratory collapse consistent with estimated right atrial pressure of 5 mmHg. 7. The pericardium is normal. 8. This was a technically good study. 9. Left ventricular wall thickness is normal. 10. Overall left ventricular systolic function is mildly impaired with, an EF between 45 - 50 %. 11. The right ventricle is normal in size and function. 12. The left atrium is normal in size. 13. The right atrium is normal in size. 14. The aortic valve is trileaflet, and appears structurally normal. No aortic stenosis or regurgitation. 15. Cannot exclude mitral valve prolapse. PRESCHOOL ASSISTANT TEACHER: Mandie Souza RDCS
[2017-02-10 12:29] VITALS: BP 99/63; PULSE 69; TEMP 97.9
--- NOTE | 2017-02-10 13:44 | P.HPIM ---
History of Present Illness H&P Date: 02/10/17 Chief Complaint: Chest tightness and asthma Is a 61-year-old white female well-known to me for her cardiomyopathy. Last recorded ejection fraction 40%. She is undergoing cardiac rehabilitation. While there it was noticed that she had an inverted T-wave in 1 week. The following day she had a nuclear inverted T-wave in several leads. I was contacted and asked them to send her to emergency room. ER physician indicated that the EKG was normal and initial troponins were normal. Dr. Patel's consult , her candy roller and he will recommended a repeat 2-D echo and serial troponins. She is here now for that testing. Review of Systems All systems: negative Past Medical History Past Medical History: Atrial Fibrillation, Asthma, Coronary Artery Disease (CAD) , Hyperlipidemia, Hypertension, Myocardial Infarction ([place]), Pneumonia Additional Past Medical History / Comment(s): Spring 2016 pneumonia/pleurisy, 11/03/16 stress induced cardiomyopathy and pt states has been told she had a IN at that time-states EF has improved from 18% to 40% and is attending cardiac rehab , vertigo and balance issues at times. Last Myocardial Infarction Date:: History of Any Multi-Drug Resistant Organisms: None Reported Past Surgical History: Section, Heart Catheterization, Hysterectomy, Tonsillectomy Additional Past Surgical History / Comment(s): 11/03/16 cardiac cath, x 1, R mastoidectomy. Past Anesthesia/Blood Transfusion Reactions: Motion Sickness, Postoperative Nausea & Vomiting (PONV) Additional Past Anesthesia/Blood Transfusion Reaction / Comment(s): Slow to wake after anesthesia. Smoking Status: Never smoker - Past Family History Mother Family Medical History: Cancer, Rheumatoid Arthritis (RA) Additional Family Medical History / Comment(s): Mother had cervical cancer. She at the age of 60 r/t complications from rheumatoid arthritis. Father Family Medical History: No Reported History Additional Family Medical History / Comment(s): Father is very healthy and is 89yrs old. Medications and Allergies Home Medications Medication Instructions Recorded Confirmed Type Albuterol Inhaler [Ventolin Hfa 2 puff INHALATION RT-Q6H PRN 11/03/16 02/09/17 History Inhaler] Fluticasone/Salmeterol [Advair 1 puff INHALATION RT-DAILY 11/03/16 02/09/17 History 250-50 Diskus] Montelukast Sodium [Singulair] 10 mg PO DAILY 11/03/16 02/09/17 History Atorvastatin [Lipitor] 80 mg PO HS 02/09/17 02/09/17 History Lisinopril [Zestril] 2.5 mg PO DAILY@1200 02/09/17 02/09/17 History Loratadine 10 mg PO HS 02/09/17 02/09/17 History Metoprolol Tartrate [Metoprolol 12.5 mg PO DAILY@1200 02/09/17 02/09/17 History Tartrate] Allergies Allergy/AdvReac Type Severity Reaction Status Date / Time codeine Allergy Unknown Verified 02/09/17 11:48 Penicillins Allergy Unknown Verified 02/09/17 11:48 pentazocine [From Talwin] Allergy Dyspnea Verified 02/09/17 11:48 Sulfa (Sulfonamide Allergy Rash/Hives Verified 02/09/17 11:48 Antibiotics) aspirin AdvReac Nausea Verified 02/09/17 11:48 meperidine [From Demerol] AdvReac Vomiting Verified 02/09/17 11:48 Physical Exam Vitals: Vital Signs Temp Pulse Resp BP Pulse Ox 02/10/17 12:00 97.9 F 69 14 99/63 97 02/10/17 08:00 97.5 F L 76 14 117/69 96 02/10/17 04:00 58 L 18 02/10/17 03:44 97.9 F 77 18 102/60 96 02/10/17 00:00 64 18 130/67 97 02/09/17 19:53 72 18 02/09/17 19:33 97.8 F 84 18 105/65 95 02/09/17 15:47 97.5 F L 74 17 127/72 95 Intake and Output 02/09/17 02/10/17 02/10/17 22:59 06:59 14:59 Intake Total 480 160 Balance 480 160 Intake: Intake, IV Titration 80 160 Amount Dextrose 5%-0.45% NaCl 1, 80 160 000 ml @ 20 mls/hr IV . Q24H [facility] Rx#:[id number] Oral 400 Other: Voiding Method Toilet Toilet Toilet # Voids 2 2 GENERAL: Well-appearing, well-nourished and in no acute distress. HEAD: Atraumatic, normocephalic. EYES: Pupils equal round and reactive to light, extraocular movements intact, sclera anicteric, conjunctiva are normal. ENT:nares patent, oropharynx clear without exudates. Moist mucous membranes. NECK: Normal range of motion, supple without lymphadenopathy or JVD, no thyromegaly LUNGS: Breath sounds clear to auscultation bilaterally and equal. No wheezes rales or rhonchi. HEART: Regular rate and rhythm without murmurs, rubs or gallops.S1S2 Normal ABDOMEN: Soft, nontender, normoactive bowel sounds. No guarding, no rebound. No masses appreciated. EXTREMITIES: Normal range of motion, no pitting or edema. No clubbing or cyanosis. NEUROLOGICAL: Cranial nerves II through XII grossly intact. Normal speech, normal gait. PSYCH: Normal mood, normal affect. SKIN: Warm, Dry, normal turgor, no rashes or lesions noted. Results CBC & Chem 7: 02/09/17 09:30 02/09/17 09:30 Thrombosis Risk Factor Assmnt - DVT/VTE Prophylaxis DVT/VTE Prophylaxis: Mechanical Prophylaxis ordered - Choose All That Apply Any of the Below Risk Factors Present?: Yes Other Risk Factors: Yes Each Risk Factor Represents 2 Points: Age 61-74 years Other congenital or acquired thrombophilia - If yes, enter type in comment: No Thrombosis Risk Factor Assessment Total Risk Factor Score: 2 Thrombosis Risk Factor Assessment Level: Low Risk Assessment and Plan Plan: Normal EKG with history of cardiomyopathy: She'll be admitted for serial troponins, 2-D echo, evaluation by cardiology. Asthma, moderate persistent: She indicates she is using her inhaler 3 times a day, and only using her Advair at night. We discussed increasing the frequency of this. SHe'll continue the ranitidine and singular Stress cardiomyopathy: Await cardiology recommendations, continue aspirin, atorvastatin, lisinopril, metoprolol cardiology consultation, wait on serial troponins, and 2-D echo.
--- NOTE | 2017-02-10 13:47 | P.DS ---
Providers Date of admission: 02/09/17 11:39 Expected date of discharge: 02/10/17 Attending physician: Prakash Alejandra Consults: 02/09/17 11:39 Consult Physician Stat Consulting Provider: Joe Hanson Consult Reason/Comments: Chest pain Do you want consulting provider notified?: Already Contacted Primary care physician: Prakash [facility] Course: Is a 61-year-old white female well-known to me for her cardiomyopathy. Last recorded ejection fraction 40%. She is undergoing cardiac rehabilitation. While there it was noticed that she had an inverted T-wave in 1 week. The following day she had a nuclear inverted T-wave in several leads. I was contacted and asked them to send her to emergency room. ER physician indicated that the EKG was normal and initial troponins were normal. Dr. Patel's consult , her operations engineer and he will recommended a repeat 2-D echo and serial troponins. She is here now for that testing. After testing, did show that her ejection fraction is now 45-50%. And based on my exam, most her symptoms are related to asthma. She can resume cardiac rehabilitation and follow-up with cardiology. Final diagnosis abnormal EKG. Stress-induced cardiomyopathy. Uncontrolled moderate persistent asthma. Hypertension. Hyperlipidemia. Patient Condition at Discharge: Stable Plan - Discharge Summary New Discharge Prescriptions: New ALPRAZolam [Xanax] 0.25 mg PO BID PRN tab PRN Reason: Anxiety Fluticasone/Salmeterol [Advair 500-50 Diskus] 1 inhalation PO BID #1 diskus Continue Montelukast Sodium [Singulair] 10 mg PO DAILY Albuterol Inhaler [Ventolin Hfa Inhaler] 2 puff INHALATION RT-Q6H PRN PRN Reason: Shortness Of Breath Aspirin 81 mg PO DAILY #30 chew Spironolactone [Aldactone] 25 mg PO DAILY #30 tab Lisinopril [Zestril] 2.5 mg PO DAILY@1200 Atorvastatin [Lipitor] 80 mg PO HS Metoprolol Tartrate 12.5 mg PO DAILY@1200 Loratadine 10 mg PO HS Discontinued Fluticasone/Salmeterol [Advair 250-50 Diskus] 1 puff INHALATION RT-DAILY Discharge Medication List Albuterol Inhaler [Ventolin Hfa Inhaler] 2 puff INHALATION RT-Q6H PRN 11/03/16 [ History] Montelukast Sodium [Singulair] 10 mg PO DAILY 11/03/16 [History] Aspirin 81 mg PO DAILY #30 chew 11/09/16 [Rx] Spironolactone [Aldactone] 25 mg PO DAILY #30 tab 11/09/16 [Rx] Atorvastatin [Lipitor] 80 mg PO HS 02/09/17 [History] Lisinopril [Zestril] 2.5 mg PO DAILY@1200 02/09/17 [History] Loratadine 10 mg PO HS 02/09/17 [History] Metoprolol Tartrate 12.5 mg PO DAILY@1200 02/09/17 [History] ALPRAZolam [Xanax] 0.25 mg PO BID PRN tab 02/10/17 [Rx] Fluticasone/Salmeterol [Advair 500-50 Diskus] 1 inhalation PO BID #1 diskus 03/21 [Rx] Follow up Appointment(s)/Referral(s): Prakash Alejandra MD [Primary Care Provider] - 1-2 days Discharge Disposition: HOME SELF-CARE
[2017-02-10] MEDS ORDERED: MONTELUKAST 10 MG TAB PO SCH (21:00)
[2017-02-10] MEDS ORDERED: SPIRONOLACTONE 25 MG TAB PO SCH (21:00)
== END 2017-02-10 14:35 | disposition home or self-care (01) ==
LOC: EC 09:02 → 3OBS 11:39
PROVIDERS: ADMIT Family Medicine; ATTEND Family Medicine
DX: R94.31 Abnormal electrocardiogram [ECG] [EKG] (principal); I25.10 Atherosclerotic heart disease of native coronary artery without angina pectoris; I11.9 Hypertensive heart disease without heart failure; J45.40 Moderate persistent asthma, uncomplicated; E78.5 Hyperlipidemia, unspecified; R61 Generalized hyperhidrosis; R06.02 Shortness of breath; I48.91 Unspecified atrial fibrillation; I25.2 Old myocardial infarction; Q24.5 Malformation of coronary vessels; I42.9 Cardiomyopathy, unspecified; Z82.49 Family history of ischemic heart disease and other diseases of the circulatory system; Z88.6 Allergy status to analgesic agent; Z88.0 Allergy status to penicillin; Z88.5 Allergy status to narcotic agent; Z88.2 Allergy status to sulfonamides; Z88.8 Allergy status to other drugs, medicaments and biological substances; Z79.51 Long term (current) use of inhaled steroids; Z79.899 Other long term (current) drug therapy; Z87.891 Personal history of nicotine dependence; Z87.01 Personal history of pneumonia (recurrent)
CPT/HCPCS: 99285; 96360; 96361 ×2; 36415; 94640 ×2; 93005; 93306; 85379; 83880; 80053; 82550; 82553; 83690; 83735; 84484; 85025; 85610; 85730; 71020; G0378 ×2

== ENCOUNTER → 2017-12-15 | Outpatient (CLI) | payer BC ==
--- NOTE | 2017-12-15 13:02 | XR ---
EXAMINATION TYPE: XR knee complete LT DATE OF EXAM: 12/15/2017 COMPARISON: NONE HISTORY: Left knee pain lateral aspect twisting injury TECHNIQUE: Three-view left knee FINDINGS: Mild narrowing of the medial lateral compartment joint spaces is present. No joint effusion is evident. Patellofemoral joint space may has some mild narrowing. No acute fractures are evident. IMPRESSION: 1. No acute osseous abnormality.
== END ==
LOC: RADXRMAIN 12:01
PROVIDERS: ATTEND Nurse Practitioner Women's Health
DX: M25.562 Pain in left knee (principal)

== ENCOUNTER → 2018-01-12 | Outpatient (CLI) | payer BC ==
--- NOTE | 2018-01-12 13:09 | BD ---
EXAMINATION TYPE: Axial Bone Density DATE OF EXAM: 01/12/2018 COMPARISON: NONE CLINICAL HISTORY: 62-year-old female known osteopenia Height: 62 Weight: 121.5 FRAX RISK QUESTIONS: Alcohol (3 or more units per day): no Family History (Parent hip fracture): yes- mother Glucocorticoids (More than 3mos): no (Ex: prednisone, prednisolone, methylprednisolone, dexamethasone, and hydrocortisone). History of Fracture in Adulthood: yes Secondary Osteoporosis: 1. Type 1 Diabetes: no 2. Hyperthyroidism: no 3. Menopause before 45: yes 4. Malnutrition: no 5. Chronic liver disease: no Rheumatoid Arthritis: no Current Tobacco Use: no RISK FACTORS HISTORY OF: Family History of Osteoporosis: yes Active: yes Diet low in dairy products/other sources of calcium: yes Postmenopausal woman: hysterectomy age 31 Lost more than 2 inches in height since high school: no MEDICATIONS: advair, ventalin, albuterol, loratadine, singulair, toperol, atorvastatin Additional History: EXAM MEASUREMENTS: Bone mineral densitometry was performed using the [employer] System. Bone mineral density as measured about the Lumbar spine is: ----- L1-L4(G/cm2): 1.118 T Score Values are as follows: ----- L2: -0.7 ----- L3: -0.3 ----- L4: -0.3 ----- L1-L4: -0.5 Bone mineral density has: decreased -5.0 % since study of: 08.29.2015 Bone mineral density about the R hip (g/cm2): 0.937 Bone mineral density about the L hip (g/cm2): 0.857 T Score values are as follows: -----R Neck: -0.7 -----L Neck: -1.3 -----R Total: -0.3 -----L Total: -0.3 Bone mineral density has: increased 0.6 % since study of: 08.29.2015 IMPRESSION: Osteopenia (T Score between -2.5 and -1). There is slightly increased risk of fracture and the patient may be considered for treatment. Re-Screen 2-5 years. NOTE: T-SCORE=SD OF THE YOUNG ADULT MEAN.
--- NOTE | 2018-01-13 15:27 | MM ---
Reason for exam: screening (asymptomatic). Last mammogram was performed 2 years and 4 months ago. History: Patient is postmenopausal. Took hormonal contraceptives for 5 years beginning at age 18. Taking estrogen for 15 years beginning at age 34. Physical Findings: A clinical breast exam by your physician is recommended on an annual basis and results should be correlated with mammographic findings. MG Screening Mammo w CAD Bilateral CC and MLO view(s) were taken. Prior study comparison: August 29, 2015, bilateral MG 3d screening mammo w/cad. September 30, 2012, bilateral digital screening mammo w/CAD. The breast tissue is heterogeneously dense. This may lower the sensitivity of mammography. There is no discrete abnormality. ASSESSMENT: Negative, BI-RAD 1 RECOMMENDATION: Routine screening mammogram of both breasts in 1 year.
== END | disposition home or self-care (01) ==
LOC: RADMAMWWP 09:18
PROVIDERS: ATTEND Family Medicine
DX: Z12.31 Encounter for screening mammogram for malignant neoplasm of breast (principal); M85.80 Other specified disorders of bone density and structure, unspecified site
CPT/HCPCS: 77067; 77080

== ENCOUNTER → 2018-01-21 | Outpatient (CLI) | payer BC ==
[2018-01-21 11:47] LABS: HCT 41.1 % (34.0-46.0); HGB 13.6 gm/dL (11.4-16.0); MCV 96.7 fL (80.0-100.0); Mean Platelet Volume 6.5; Platelet Count 279 k/uL (150-450); RBC 4.25 m/uL (3.80-5.40); RDW 14.1 % (11.5-15.5); WBC 6.2 k/uL (3.8-10.6)
[2018-01-21 11:48] LABS: Anion Gap 7 mmol/L; Blood Urea Nitrogen 19 mg/dL (7-17); Carbon Dioxide 28 mmol/L (22-30); Chloride 99 mmol/L (98-107); Glucose 99 mg/dL (74-99); Potassium 4.9 mmol/L (3.5-5.1); Sodium 134 mmol/L (137-145)
== END | disposition home or self-care (01) ==
LOC: LABPAT 11:11
PROVIDERS: ATTEND Internal Medicine Clinical Cardiac Electrophysiology
DX: Z01.812 Encounter for preprocedural laboratory examination (principal); I42.8 Other cardiomyopathies; I47.2 Ventricular tachycardia
CPT/HCPCS: 36415; 80051; 82565; 82947; 84520; 85027

== ENCOUNTER 2018-01-24 07:03 | Observation (INO) | payer BC ==
[~2018-01-24 07:03] MED LIST changes: -BIVALIRUDIN BOLUS 250 MG/50 ML IV ONE; +DEXAMETHASONE SOD PHOSPHATE 10 MG/ML 1 ML VIAL IV ONE; +LIDOCAINE 1% 20 ML VIAL (10MG/ML) FOR IV START INTRADERMA PRN; +MIDAZOLAM 2 MG/2 ML VIAL IV PRN; +ONDANSETRON 4 MG/2 ML VIAL IVP ONE; +SODIUM CHLORIDE 0.9% 1,000 ML IV SCH; +fentaNYL (PF) 50 MCG/ML 2 ML AMP IV PRN
[2018-01-24] MEDS ORDERED: diphenhydrAMINE 50 MG/ML 1 ML VIAL ONE (08:04)
[2018-01-24] MEDS ORDERED: MIDAZOLAM 2 MG/2 ML VIAL ONE (08:04)
[2018-01-24] MEDS ORDERED: PROPOFOL 10 MG/ML 20 ML VIAL IV ONE (08:04)
[2018-01-24] MEDS ORDERED: fentaNYL (PF) 50 MCG/ML 2 ML AMP ONE (08:04)
[2018-01-24] MEDS ORDERED: LIDOCAINE 1% INJ 10MG/ML (20 ML MDV) SQ ONE ×3 (08:33→11:16)
[2018-01-24] MEDS ORDERED: HEPARIN SODIUM 1,000 UN/ML (10ML VL) ONE (08:39)
[2018-01-24] MEDS ORDERED: CLINDAMYCIN 900 MG in DEXTROSE 5% IN WATER 50 ML IVPB STA ×2 (09:15)
[2018-01-24] MEDS ORDERED: CLINDAMYCIN 600 MG in SODIUM CHLORIDE 0.9% IRRIGATIO 250 ML IRRIGATION ONE (09:16)
--- NOTE | 2018-01-24 09:41 | P.PN ---
Progress Note - Text Final impression History of cardio myopathy, nonischemic Normal coronary arteries Nonsustained ventricular tachycardia, symptomatic with palpitations and dizziness Easily inducible sustained ventricular fibrillation with double extrastimuli from the right ventricle apex, 600/230/230, requiring external defibrillation for resuscitation With double extrastimuli from the right ventricle nonsustained PSVT was induced prior to this, repetitively Plan Discussed with patient's family in detail I would recommend a single chamber ICD implantation for secondary prevention of sudden cardiac Continue beta blockers, angiotensin receptor blockers
[2018-01-24] MEDS ORDERED: IOPAMIDOL-250 50ML BTL IV ONE (09:50)
[2018-01-24] MEDS ORDERED: LIDOCAINE 1% INJ 10MG/ML (20 ML MDV) ONE (09:55)
--- NOTE | 2018-01-24 10:23 | CE ---
CARDIAC ELECTROPHYSIOLOGY REPORT Renée Jay is a 62-year-old female with a history of cardiomyopathy and normal coronary arteries with nonsustained ventricular tachycardia, symptomatic, with palpitations and dizzy spells. She was brought in for diagnostic EP study for evaluation for future therapies, namely radiofrequency ablation, medical treatment or device therapy. The patient is brought to the EP lab in a fasting state. Written informed consent was obtained prior to the procedure. The right and left groins were prepped and draped as per protocol. She had PVCs from the LV base, lateral, which were recorded. Venous sheaths were placed in the right and left femoral veins and a 5-[place] arterial sheath was placed in the right femoral artery for hemodynamic monitoring and sampling. The diagnostic catheters were placed in the high right atrium, His bundle area and RV. Baseline sinus cycle length 798 milliseconds, HI interval 140 milliseconds, QRS 86 milliseconds, and QT 425 milliseconds. AH interval 67 milliseconds, HV interval 35 milliseconds. Sinus node recovery time at 600, 500, 400 milliseconds were 1036, 1252 and 1269 milliseconds. Corresponding corrected sinus node recovery times within normal limits. No delta waves. No slow pathway conduction. AV node Wenckebach block 330 milliseconds, VA Wenckebach block 420 milliseconds. Atrial extra stimulation was performed and atrial ERP 500\250 milliseconds. AVERP 600\less than 360 back\360 milliseconds. Nonsustained polymorphic VT was noted with double extra stimuli starting from 600 260 milliseconds. Sustained ventricular fibrillation was induced in the RV apex at 600\230\230 milliseconds. The patient was lightly sedated at this point and was not on Isuprel. On reviewing the initiating beats of ventricular fibrillation, these beats were completely different in morphology from her spontaneous PVCs. All catheters were then removed and preparations were made for a single-chamber ICD implant for secondary prevention of sudden cardiac in the setting of cardiomyopathy with runs of symptomatic nonsustained ventricular tachycardia with palpitations and dizziness. I had a detailed discussion with the family regarding the need for ICD implantation and consent was obtained from the family. MMODL / IJN: [id number] /
[2018-01-24] MEDS ORDERED: ACETAMINOPHEN TAB 325 MG TAB PO PRN ×2 (11:46→11:47)
[2018-01-24] MEDS ORDERED: ACETAMINOPHEN IV (For NPO) 1,000 MG in EMPTY BAG 1 BAG IVPB ONE ×2 (12:00→20:09)
[2018-01-24] MEDS ORDERED: CLINDAMYCIN 900 MG in DEXTROSE 5% IN WATER 50 ML IVPB SCH ×2 (12:00)
--- NOTE | 2018-01-24 12:41 | CE ---
CARDIAC ELECTROPHYSIOLOGY REPORT Renée Jay underwent a diagnostic EP study and had very easily inducible ventricular fibrillation. She has a history of cardiomyopathy. Her sinus node function and AV node function were normal. She underwent single-chamber ICD implantation for secondary prevention of sudden cardiac . The left pectoral area was prepped and draped as per protocol and 1% lidocaine was used for local anesthesia. A 4 cm incision made parallel to the deltopectoral groove about 1.5 cm medial to it. The incision was carried down to the level of the pectoralis muscle. A subfascial pocket was made. Hemostasis was assured. The left axillary vein was accessed at a single point and via an appropriately-sized introducer sheath. A Medtronic ICD lead was positioned in the right heart. This was model #6935M, 55 cm in length and serial #[id number] and screwed in the mid to high RV septum. Good noted. Pacing thresholds were excellent. The lead was screwed in position. R-waves 5.5 mV. Pacing impedance 772 ohms, pacing threshold 0.4 V at 0.5 milliseconds. The 10 V test negative. The lead was secured to the underlying pectoralis fascia using 2 nonabsorbable sutures. Pocket was irrigated with antibiotic solution. Lead was connected to the generator (model WLCS6B2, serial #[id number]). The lead and generator were then placed in subfascial pocket. The wound was closed in 3 layers and dressed per protocol. Device secured to the underlying pectoralis muscle. DFT TESTING UNDER ANESTHESIA: Shock T wave protocol was used to induce ventricular fibrillation. This was adequately and appropriately detected at least sensitivity with 2 dropouts. A 10 joule shock defibrillated the patient with a type 2 conversion. At this point testing was not performed. The device was then programmed to detect VF at 214 beats per minute and above with first shock at 30 joules. Subsequent shocks at maximum output. Appropriate antitachycardia pacing, cardioversion and defibrillation were programmed for the VT and VF zone, backup pacing VVI 40 ppm. RESULTS: 1. Successful single-chamber implantation for secondary prevention of sudden cardiac . 2. DFT 10 joules, type 2 conversion first defibrillation at 30 joules. MMODL / IJN: [id number] /
[2018-01-24] MEDS: LACTATED RINGERS 1,000 ML IV SCH (13:37)
[2018-01-24] MEDS ORDERED: ONDANSETRON 4 MG/2 ML VIAL IVP STA (13:39)
[2018-01-24] MEDS: CLINDAMYCIN 900 MG in DEXTROSE 5% IN WATER 50 ML IVPB SCH ×4 (17:28→21:24)
[2018-01-24 18:59] VITALS: BMI 21.5
[2018-01-24] MEDS: HYDROcodone/APAP 5-325MG 1 EACH TAB PO PRN ×2 (18:59→23:28)
[2018-01-24] MEDS ORDERED: MONTELUKAST 10 MG TAB PO SCH (21:00)
[2018-01-25] MEDS: ONDANSETRON 4 MG/2 ML VIAL IVP PRN ×2 (01:37→10:07)
[2018-01-25] MEDS: CLINDAMYCIN 900 MG in DEXTROSE 5% IN WATER 50 ML IVPB SCH ×4 (03:36→09:21)
[2018-01-25] MEDS: HYDROcodone/APAP 5-325MG 1 EACH TAB PO PRN (04:22)
--- NOTE | 2018-01-25 08:13 | P.DS ---
Providers Date of admission: 01/25/18 02:59 Attending physician: Lg Velez Primary care physician: Prakash [facility] Course: Patient is doing well. She does a mild nausea with antibiotics and overall is stable afebrile 97.8F, ulcerative in the 60s, blood pressure 106/65 mmHg Heart sounds are normal Breath sounds are clear Abdomen soft ICD site is healing well there is no hematoma minimal soakage Impression Nonischemic cardio myopathy with nonsustained ventricular tachycardiac, symptomatic Very easily inducible ventricular fibrillation at EP study status post single chamber ICD for secondary prevention of sudden cardiac Suggest Continue beta blockers and losartan. Discharge home today in follow-up in the device clinic in 5 days and follow with Dr. Patel as before Plan - Discharge Summary Discharge Rx Participant: No New Discharge Prescriptions: No Action RX: Montelukast Sodium [Singulair] 10 mg PO HS RX: Albuterol Inhaler [Ventolin Hfa Inhaler] 2 puff INHALATION RT-Q6H PRN PRN Reason: Shortness Of Breath RX: Aspirin 81 mg PO DAILY #30 chew RX: Atorvastatin [Lipitor] 80 mg PO DAILY RX: Metoprolol Tartrate 12.5 mg PO DAILY@1200 RX: Loratadine 10 mg PO HS RX: ALPRAZolam [Xanax] 0.25 mg PO BID PRN tab PRN Reason: Anxiety Fluticasone/Salmeterol [Advair 500-50 Diskus] 1 puff INHALATION RT-BID Discharge Medication List RX: Albuterol Inhaler [Ventolin Hfa Inhaler] 2 puff INHALATION RT-Q6H PRN [History] RX: Montelukast Sodium [Singulair] 10 mg PO HS 11/03/16 [History] RX: Aspirin 81 mg PO DAILY #30 chew 11/09/16 [Rx] RX: Atorvastatin [Lipitor] 80 mg PO DAILY 02/09/17 [History] RX: Loratadine 10 mg PO HS 02/09/17 [History] RX: Metoprolol Tartrate 12.5 mg PO DAILY@1200 02/09/17 [History] RX: ALPRAZolam [Xanax] 0.25 mg PO BID PRN tab 02/10/17 [Rx] Fluticasone/Salmeterol [Advair 500-50 Diskus] 1 puff INHALATION RT-BID 01/25/18 [History]
[2018-01-25] MEDS ORDERED: ATORVASTATIN 80 MG TAB PO SCH (09:00)
[2018-01-25] MEDS ORDERED: ASPIRIN 81 MG PO SCH (09:00)
--- NOTE | 2018-01-25 11:29 | XR ---
EXAMINATION TYPE: XR chest 2V DATE OF EXAM: 01/25/2018 COMPARISON: 02/09/17 HISTORY: Shortness of breath TECHNIQUE: Frontal and lateral views of the chest are obtained. FINDINGS: No pneumothorax. Pacer appropriately placed. Scattered senescent parenchymal changes noted. Hyperinflation compatible with COPD. No evidence for infiltrate. No evidence for atelectasis. Heart size is stable. Mediastinal structures are stable and grossly unremarkable. No evidence for hilar prominence. Degenerative changes dorsal spine. IMPRESSION: 1. No evidence for acute pulmonary disease.
[2018-01-25 11:51] VITALS: BP 99/60; PULSE 70; RESP 18; TEMP 98
[2018-01-25] MEDS: LACTATED RINGERS 1,000 ML IV SCH (12:17)
== END 2018-01-25 14:05 | disposition home or self-care (01) ==
LOC: CATHEP 07:03 → 3OBS 11:32 → CATHEP 01-25 02:59 → 3OBS 01-25 02:59
PROVIDERS: ADMIT Internal Medicine Clinical Cardiac Electrophysiology; ATTEND Internal Medicine Clinical Cardiac Electrophysiology
DX: I47.2 Ventricular tachycardia (principal); I42.9 Cardiomyopathy, unspecified; Z79.899 Other long term (current) drug therapy; Z79.82 Long term (current) use of aspirin; Q24.5 Malformation of coronary vessels; I25.2 Old myocardial infarction; I10 Essential (primary) hypertension; E78.5 Hyperlipidemia, unspecified; I48.91 Unspecified atrial fibrillation; I25.10 Atherosclerotic heart disease of native coronary artery without angina pectoris; J45.909 Unspecified asthma, uncomplicated; K21.9 Gastro-esophageal reflux disease without esophagitis; Z88.5 Allergy status to narcotic agent; Z88.0 Allergy status to penicillin; Z88.2 Allergy status to sulfonamides; Z88.8 Allergy status to other drugs, medicaments and biological substances
CPT/HCPCS: 93641; 93620; 33249; 71046; G0378; C1894 ×2; C1769 ×3; C1892; C1895; C1730 ×2; C1722; J2250; J1200; J2405 ×2; J2001; J3010; J0131; J2704; Q9966

== ENCOUNTER 2018-02-02 17:24 | Observation (INO) | payer BC ==
--- NOTE | 2018-02-02 17:21 | US ---
EXAMINATION TYPE: US lower ext pseudo artery LT DATE OF EXAM: 02/02/2018 COMPARISON: NONE CLINICAL HISTORY: pseudo aneurysm hematoma. Patient states having heart cath performed on January 24 18. Pain. R/O pseudoaneurysm EXAM PERFORMED: Grayscale and color Doppler duplex imaging performed of the groin, post cardiac camelia ter to assess for pseudoaneurysm. SIDE PERFORMED: Left groin. Color and Waveform Doppler performed to assess for the presence of pseudoaneurysm; Is there ultrasound evidence of a pseudoaneurysm: Yes Is there evidence of AV shunting: No. Is there a fluid collection present: No. IMPRESSION: Arising anteriorly from the left common femoral artery (DRESSMAKER OR TAILOR) is a 5.5 cm CC x 3.6 cm nichols sverse x 2.7 cm AP predominantly vascular mass readily communicating with the DRESSMAKER OR TAILOR blood pool via a sh ort neck 3.5 mm rent in the anterior wall of the DRESSMAKER OR TAILOR.
[2018-02-02] MEDS ORDERED: HYDROcodone/APAP 5-325MG 1 EACH TAB PO STA (18:04)
[2018-02-02] MEDS ORDERED: NALOXONE 0.4 MG/ML 1 ML VIAL IV PRN (18:07)
--- NOTE | 2018-02-02 18:12 | ED ---
General Adult HPI - General Chief complaint: Recheck/Abnormal Lab/Rx Time Seen by Provider: 02/02/18 17:52 Source: patient Mode of arrival: wheelchair Limitations: no limitations - History of Present Illness Initial comments: 62-year-old female patient presents the emergency department today sent by her roof foreman after having findings of a left femoral pseudoaneurysm on ultrasound today. Patient did have a pacemaker placement with her catheterization on 01/25/2018. Puncture site was to the left groin. Patient states she's been having significant pain to the left groin and left upper leg with extensive bruising. Patient states that she followed up with her roof foreman's office today and they ordered the ultrasound outpatient. Patient states that she was instructed to come to the emergency department today for admission. She denies any fever, chills, leaking, or oozing from the site. Patient denies any recent rash, shortness breath, chest pain, abdominal pain, nausea, vomiting, diarrhea, constipation, back pain, numbness, tingling, dizziness, weakness, hematuria, dysuria, urinary urgency, urinary frequency, headache, visual changes, or any other complaints. - Related Data Home Medications Medication Instructions Recorded Confirmed Albuterol Inhaler [Ventolin Hfa 2 puff INHALATION RT-Q6H PRN 11/03/16 01/25/18 Inhaler] Montelukast Sodium [Singulair] 10 mg PO HS 11/03/16 01/25/18 Atorvastatin [Lipitor] 80 mg PO DAILY 02/09/17 01/25/18 Loratadine 10 mg PO HS 02/09/17 01/25/18 Metoprolol Tartrate 12.5 mg PO DAILY@1200 02/09/17 01/25/18 Fluticasone/Salmeterol [Advair 1 puff INHALATION RT-BID 01/25/18 01/25/18 500-50 Diskus] Previous Rx's Medication Instructions Recorded Aspirin 81 mg PO DAILY #30 chew 11/09/16 ALPRAZolam [Xanax] 0.25 mg PO BID PRN tab 02/10/17 Losartan [Cozaar] 12.5 mg PO DAILY #90 tab 01/25/18 Allergies Allergy/AdvReac Type Severity Reaction Status Date / Time codeine Allergy Unknown Verified 02/02/18 17:33 Penicillins Allergy Unknown Verified 02/02/18 17:33 pentazocine [From Talwin] Allergy Dyspnea Verified 02/02/18 17:33 Sulfa (Sulfonamide Allergy Rash/Hives Verified 02/02/18 17:33 Antibiotics) aspirin AdvReac Nausea Verified 02/02/18 17:33 meperidine [From Demerol] AdvReac Vomiting Verified 02/02/18 17:33 Review of Systems ROS Statement: Those systems with pertinent positive or pertinent negative responses have been documented in the HPI. ROS Other: All systems not noted in ROS Statement are negative. 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 Last Myocardial Infarction Date:: History of Any Multi-Drug Resistant Organisms: None Reported Past Surgical History: Ablation, Section, Heart Catheterization, Hysterectomy, Pacemaker, Tonsillectomy Additional Past Surgical History / Comment(s): 11/03/16 cardiac cath, x 1, R mastoidectomy. 01/24/18-EPS with ablation and AIC inplant Past Anesthesia/Blood Transfusion Reactions: Motion Sickness, Postoperative Nausea & Vomiting (PONV) Additional Past Anesthesia/Blood Transfusion Reaction / Comment(s): Slow to wake after anesthesia. Type of Cardiac Device: Permanent Pacemaker Device Placement Date:: 01/24/18 Past Psychological History: Anxiety Smoking Status: Never smoker Past Alcohol Use History: Occasional Past Drug Use History: None Reported - Past Family History Mother Family Medical History: Cancer, Rheumatoid Arthritis (RA) Additional Family Medical History / Comment(s): Mother had cervical cancer. She at the age of 60 r/t complications from rheumatoid arthritis. Father Family Medical History: No Reported History Additional Family Medical History / Comment(s): Father is very healthy and is 89yrs old. General Exam Limitations: no limitations General appearance: alert, in no apparent distress, other (Social well-developed , well-nourished adult female patient in no acute distress. Vital signs upon presentation are temperature 97.6F, pulse 76, respirations 18, blood pressure 166/109, pulse ox 99% on room air.) Eye exam: Present: normal appearance, PERRL, EOMI. Absent: scleral icterus, conjunctival injection, periorbital swelling ENT exam: Present: normal exam, normal oropharynx, mucous membranes moist Respiratory exam: Present: normal lung sounds bilaterally. Absent: respiratory distress, wheezes, rales, rhonchi, stridor Cardiovascular Exam: Present: regular rate, normal rhythm, normal heart sounds. Absent: systolic murmur, diastolic murmur, rubs, gallop, clicks GI/Abdominal exam: Present: soft, normal bowel sounds. Absent: distended, tenderness, guarding, rebound, rigid Extremities exam: Present: full ROM, tenderness (Left groin pain), normal capillary refill, other (Circumferential ecchymosis to the left thigh, extending from the left groin. Remainder of skin is pink, warm, and dry. Cap refills less than 3 seconds. Pedal and posttibial pulses are 2+ and equal bilaterally.). Absent: normal inspection, pedal edema, joint swelling, calf tenderness Neurological exam: Present: alert, oriented X3, CN II-XII intact Psychiatric exam: Present: normal affect, normal mood Skin exam: Present: warm, dry, intact, normal color. Absent: rash Course Vital Signs 02/02/18 17:30 Temperature 97.6 F Pulse Rate 76 Respiratory 18 Rate Blood Pressure 166/109 O2 Sat by Pulse 99 Oximetry Medical Decision Making - Medical Decision Making 62-year-old female patient presented to the emergency department today sent by her roof foreman after findings of a pseudoaneurysm to the left femoral artery on ultrasound. Physical examination does reveal circumferential ecchymosis to the left thigh and tenderness over the left groin. Patient will be admitted to observation with by mouth [place] for pain control. Did inform patient of plan, she is agreeable. - Radiology Data Radiology results: report reviewed Ultrasound of the lower extremity was obtained, report was reviewed in its entirety. Impression by Dr. Martha Rust shows a rising anteriorly from the left common femoral artery is a 5.5 cm x 3.6 cm transverse by 2.7 cm AP predominantly vascular mass readily communicating with to see if they blood pooled via the short neck 3.5 mm rent in the anterior wall the CEMETERY MANAGER. This test was ordered by Dr. Hanson. Disposition Clinical Impression: Pseudoaneurysm of left femoral artery Disposition: ADMITTED IP TO THIS [facility] Condition: Serious Referrals: Prakash Alejandra MD [Primary Care Provider] - 1-2 days Decision to Admit Reason: Admit from EC Decision Date: 02/02/18 Decision Time: 18:15
[2018-02-02] MEDS ORDERED: ALPRAZolam 0.25 MG TAB PO PRN (18:37)
[2018-02-02] MEDS ORDERED: ALBUTEROL NEBULIZED 2.5 MG/3 ML INHALATION PRN (18:37)
[2018-02-02 20:00] LABS: Basophils % (A) 1 %; Eosinophils # (A) 0.6 k/uL (0-0.7); Eosinophils % (A) 9 %; HCT 34.3 % (34.0-46.0); HGB 11.6 gm/dL (11.4-16.0); Lymphocytes # (A) 1.1 k/uL (1.0-4.8); Lymphocytes % (A) 17 %; MCH 31.7 pg (25.0-35.0); MCHC 33.7 g/dL (31.0-37.0); MCV 94.2 fL (80.0-100.0); Mean Platelet Volume 7.2; Monocytes # (A) 0.4 k/uL (0-1.0); Monocytes % (A) 6 %; Neutrophils # (A) 4.1 k/uL (1.3-7.7); Neutrophils % (A) 65 %; Platelet Count 239 k/uL (150-450); RBC 3.64 m/uL (3.80-5.40); RDW 13.2 % (11.5-15.5); WBC 6.2 k/uL (3.8-10.6)
[2018-02-02] MEDS: SYMBICORT 160-4.5 MCG INHALER INHALATION SCH (20:18)
[2018-02-02 20:24] LABS: Anion Gap 6 mmol/L; Blood Urea Nitrogen 15 mg/dL (7-17); Calcium 9.4 mg/dL (8.4-10.2); Carbon Dioxide 26 mmol/L (22-30); Chloride 100 mmol/L (98-107); Glucose 98 mg/dL (74-99); Potassium 4.6 mmol/L (3.5-5.1); Sodium 132 mmol/L (137-145)
[2018-02-02] MEDS ORDERED: LOSARTAN 25 MG TAB PO STA (20:46)
[2018-02-02] MEDS: HYDROcodone/APAP 5-325MG 1 EACH TAB PO PRN (20:53)
[2018-02-02] MEDS: MONTELUKAST 10 MG TAB PO SCH (21:33)
[2018-02-03] MEDS: HYDROcodone/APAP 5-325MG 1 EACH TAB PO PRN ×2 (00:49→05:30)
[2018-02-03] MEDS: METOCLOPRAMIDE 5 MG/ML 2 ML VIAL IVP PRN ×2 (05:38→09:39)
[2018-02-03] MEDS: SYMBICORT 160-4.5 MCG INHALER INHALATION SCH ×2 (07:26→18:43)
--- NOTE | 2018-02-03 09:25 | CONS ---
CONSULTATION A 62-year-old female who presented with groin pain and swelling almost 1-1/2 weeks after her EP study. ICD site is functioning well. ICD site is healing well. She was sent to the emergency room. She was sent for an ultrasound of the groin, which showed a small pseudoaneurysm. She was admitted for: 1. Pain management. 2. Management of pseudoaneurysm. Patient denies any chest discomfort, no dizziness, lightheadedness. She has a lot of pain in the groin and bruising in the thigh. REVIEW OF SYSTEMS: No fever, chills, or rigors. No cough or expectoration. No nausea, vomiting, or diarrhea. No hematuria or dysuria. No strokes, seizures or skin lesions. No musculoskeletal complaints. PAST HISTORY: Cardiomyopathy and easily inducible ventricular fibrillation. She underwent a diagnostic EP study which revealed an inducible ventricular fibrillation. She underwent ICD implantation. MEDICATIONS: At home include Singulair, metoprolol, losartan, Advair Diskus inhaler, Lipitor, Ecotrin and Xanax. PHYSICAL EXAMINATION: Her vitals are stable. Blood pressure is 122/73 mmHg. Respirations are normal. Pulse rate in the 60s to 80s. Afebrile, 97.6 degrees Fahrenheit. head and neck examination normal. Heart sounds normal. ICD site has healed well. No murmurs, no gallop, no rub. Abdomen is soft. Extremities are warm. Pulses are palpable, but she has a bruise to the thigh in the left groin and she has swelling which is tender in the left groin with bruit that is audible. LABS: Reviewed and her hemoglobin is 11.6, white count is 6.2, electrolytes, sodium is 132. Renal function is normal. IMPRESSION: 1. Swelling in the left groin consistent with pseudoaneurysm with hemoglobin of 11.6. 2. Cardiomyopathy. 3. Easily ventricular fibrillation on the diagnostic EP study, status post ICD implantation. SUGGEST: Hold aspirin and call the Interventional Radiology for ultrasound-guided thrombin injection of the site. She will go home thereafter Pain Management in the next few days. She will hold aspirin for the next 5 days. This was discussed with the patient, I explained exactly what happened and she asked questions about how this occurred, and I explained to her and explained the procedure for the ultrasound-guided injection. Hopefully, this evening we will be able to discharge her. MMKENRICK / DELIAN: [id number] /
[2018-02-03] MEDS ORDERED: THROMBIN (BOVINE) 5,000 UNIT VIAL MISCELLANE SCH (09:45)
[2018-02-03] MEDS ORDERED: ONDANSETRON 4 MG/2 ML VIAL IVP PRN (12:03)
[2018-02-03] MEDS: ASPIRIN 81 MG PO SCH (12:09)
--- NOTE | 2018-02-03 12:44 | US ---
ULTRASOUND GUIDED LEFT FEMORAL ARTERY PSEUDOANEURYSM INJECTION POST CARDIAC CATHETERIZATION: CLINICAL HISTORY: Pseudoaneurysm post cardiac catheterization FINDINGS: The procedure was explained to the patient. The risks, complications, benefits and alternatives were discussed and any questions were answered. Informed consent was obtained. Patient was placed supin e on the ultrasound table and prepped and draped in the usual sterile fashion. Utilizing a 25 gauge needle and there is application of local anesthesia. Subsequently approximately 250 units of thrombin was injected into the pseudoaneurysm with complete t hrombosis. Pulses were monitored before during and after the procedure and were stable. Ultrasound document dillon ncy of the arterial system pre and post procedure. All elements of maximal barrier and sterile technique were utilized. IMPRESSION: 1. Successful ultrasound guided pseudoaneurysm thrombin injection with complete thrombosis.
[2018-02-03] MEDS: LOSARTAN 25 MG TAB PO SCH (15:53)
[2018-02-03] MEDS: METOPROLOL TARTRATE 12.5 MG TAB PO SCH (15:53)
[2018-02-03] MEDS: ATORVASTATIN 80 MG TAB PO SCH (15:53)
[2018-02-03] MEDS: MONTELUKAST 10 MG TAB PO SCH (20:17)
[2018-02-04 03:31] VITALS: BP 109/71; PULSE 86; RESP 16; TEMP 98.1
[2018-02-04] MEDS: SYMBICORT 160-4.5 MCG INHALER INHALATION SCH (07:25)
--- NOTE | 2018-02-04 08:06 | P.DS ---
Providers Date of admission: 02/02/18 18:49 Attending physician: Lg Velez Primary care physician: Prakash [facility] Course: Patient is doing well with she denies any chest discomfort dizziness lightheadedness. Her nausea has improved significantly. Her groin is shaft tender but the pain is a lot better. She is walking around. There is no bruit after common was injected Heart sounds are normal Breath sounds are clear Vitals are stable she's afebrile 98.1F respirations normal blood pressure 109/ 71 mmHg ICD site is healing well Impression Pseudoaneurysm left groin post EP study. Ultrasound cardiac thrombin injection yesterday Cardiomyopathy easily inducible ventricular fibrillation at EP study status post ICD implant Plan Follow-up ultrasound today if this shows absence of any leak she will go home today following Dr. Hanson next week no changes in her medications Patient Condition at Discharge: Serious Plan - Discharge Summary Discharge Rx Participant: No New Discharge Prescriptions: No Action RX: Montelukast Sodium [Singulair] 10 mg PO HS RX: Albuterol Inhaler [Ventolin Hfa Inhaler] 2 puff INHALATION RT-Q6H PRN PRN Reason: Shortness Of Breath RX: Atorvastatin [Lipitor] 80 mg PO DAILY RX: Metoprolol Tartrate 12.5 mg PO DAILY@1200 RX: ALPRAZolam [Xanax] 0.25 mg PO BID PRN tab PRN Reason: Anxiety Fluticasone/Salmeterol [Advair 500-50 Diskus] 1 puff INHALATION RT-BID RX: Losartan [Cozaar] 12.5 mg PO DAILY #90 tab Aspirin EC [Ecotrin Low Dose] 81 mg PO DAILY Discharge Medication List RX: Albuterol Inhaler [Ventolin Hfa Inhaler] 2 puff INHALATION RT-Q6H PRN [History] RX: Montelukast Sodium [Singulair] 10 mg PO HS 11/03/16 [History] RX: Atorvastatin [Lipitor] 80 mg PO DAILY 02/09/17 [History] RX: Metoprolol Tartrate 12.5 mg PO DAILY@1200 02/09/17 [History] RX: ALPRAZolam [Xanax] 0.25 mg PO BID PRN tab 02/10/17 [Rx] Fluticasone/Salmeterol [Advair 500-50 Diskus] 1 puff INHALATION RT-BID 01/25/18 [History] RX: Losartan [Cozaar] 12.5 mg PO DAILY #90 tab 01/25/18 [Rx] Aspirin EC [Ecotrin Low Dose] 81 mg PO DAILY 02/02/18 [History] Follow up Appointment(s)/Referral(s): Prakash Alejandra MD [Primary Care Provider] - 1-2 days
[2018-02-04] MEDS: ATORVASTATIN 80 MG TAB PO SCH (09:34)
[2018-02-04] MEDS: LOSARTAN 25 MG TAB PO SCH (09:34)
[2018-02-04] MEDS: ASPIRIN 81 MG PO SCH (09:34)
--- NOTE | 2018-02-04 11:38 | US ---
EXAMINATION TYPE: US lower ext pseudo artery LT DATE OF EXAM: 02/04/2018 COMPARISON: 02/03/2018 CLINICAL HISTORY: follow up ultrasound. Post pseudo injection yesterday EXAM PERFORMED: Grayscale and color Doppler duplex imaging performed of the groin, post cardiac camelia ter to assess for pseudoaneurysm. SIDE PERFORMED: Left Color and Waveform Doppler performed to assess for the presence of pseudoaneurysm; Is there ultrasound evidence of a pseudoaneurysm: No Is there evidence of AV shunting: no Is there a fluid collection present: no Previous pseudoaneurysm shows no vascular flow. This measured 5.5 x 2.7 cm on the prior examination. IMPRESSION: Complete thrombosis of the left common femoral pseudoaneurysm with no appreciable internal vascular f low on today's examination. Dimensions however appears slightly enlarged from the prior measuring at least 6.3 cm x 2.7 cm.
[2018-02-04] MEDS: METOPROLOL TARTRATE 12.5 MG TAB PO SCH (13:42)
== END 2018-02-04 13:56 | disposition home or self-care (01) ==
LOC: EC 17:24 → 3OBS 18:49
PROVIDERS: ADMIT Internal Medicine Clinical Cardiac Electrophysiology; ATTEND Internal Medicine Clinical Cardiac Electrophysiology
DX: I72.4 Aneurysm of artery of lower extremity (principal); E78.5 Hyperlipidemia, unspecified; I10 Essential (primary) hypertension; I25.10 Atherosclerotic heart disease of native coronary artery without angina pectoris; I25.2 Old myocardial infarction; I42.9 Cardiomyopathy, unspecified; I48.91 Unspecified atrial fibrillation; J45.909 Unspecified asthma, uncomplicated; Z80.49 Family history of malignant neoplasm of other genital organs; Z90.710 Acquired absence of both cervix and uterus; Z79.51 Long term (current) use of inhaled steroids; Z79.899 Other long term (current) drug therapy; Z79.82 Long term (current) use of aspirin; Z88.6 Allergy status to analgesic agent; Z88.5 Allergy status to narcotic agent; Z88.0 Allergy status to penicillin; Z88.2 Allergy status to sulfonamides; Z95.810 Presence of automatic (implantable) cardiac defibrillator
CPT/HCPCS: 96374; 96375; 96376; 99285; 94640 ×2; 80048; 85025; 93975 ×3; 93926 ×2; 36002; G0378 ×3; J2765; J2405

== ENCOUNTER → 2018-04-11 | Outpatient (CLI) | payer BC ==
[2018-04-11 14:34] LABS: HGB 13.5 gm/dL (11.4-16.0); MCH 32.2 pg (25.0-35.0); MCHC 32.9 g/dL (31.0-37.0); Mean Platelet Volume 6.5; Platelet Count 261 k/uL (150-450); RBC 4.18 m/uL (3.80-5.40); RDW 12.7 % (11.5-15.5); WBC 6.1 k/uL (3.8-10.6)
[2018-04-11 14:45] LABS: Anion Gap 8 mmol/L; Blood Urea Nitrogen 18 mg/dL (7-17); Carbon Dioxide 29 mmol/L (22-30); Chloride 100 mmol/L (98-107); Glucose 87 mg/dL (74-99); Potassium 4.7 mmol/L (3.5-5.1); Sodium 137 mmol/L (137-145)
== END | disposition home or self-care (01) ==
LOC: LABPAT 13:38
PROVIDERS: ATTEND Internal Medicine Clinical Cardiac Electrophysiology
DX: Z01.812 Encounter for preprocedural laboratory examination (principal); Q24.5 Malformation of coronary vessels; Z95.810 Presence of automatic (implantable) cardiac defibrillator
CPT/HCPCS: 80051; 82565; 82947; 84520; 85027

== ENCOUNTER → 2020-03-06 | Outpatient (CLI) | payer MEDICARE, OTHER ==
[2020-03-06 19:29] LABS: African American GFR (CKD) 77.8 (60.0-200.0); Albumin 4.4 g/dL (3.80-4.90); Albumin/Globulin Ratio 2.2 (1.60-3.17); Anion Gap 6.9 mmol/L (4.00-12.00); BUN/Creat Ratio 14.44 Ratio (12.00-20.00); Calcium 9.3 mg/dL (8.7-10.3); Carbon Dioxide 28.1 mmol/L (21.6-31.8); Magnesium 1.6 mg/dL (1.5-2.4); Non-African American GFR(CKD) 67.1 (60.0-200.0); Potassium 4.8 mmol/L (3.5-5.5); Total Bilirubin 0.5 mg/dL (0.2-1.2); Total Protein 6.4 g/dL (6.2-8.2)
== END | disposition home or self-care (01) ==
LOC: LABWHC1 10:29
PROVIDERS: ATTEND Nurse Practitioner Adult Health
DX: I10 Essential (primary) hypertension (principal); E78.5 Hyperlipidemia, unspecified; E03.9 Hypothyroidism, unspecified
CPT/HCPCS: 36415; 80053; 83721; 83735; 84443; 84481

== ENCOUNTER → 2020-11-07 | Outpatient (CLI) | payer MEDICARE ==
[2020-11-07 15:34] LABS: HCT 39.9 % (34.0-46.0); HGB 13.9 gm/dL (11.4-16.0); MCHC 34.9 g/dL (31.0-37.0); MCV 97.2 fL (80.0-100.0); Mean Platelet Volume 7.2; Platelet Count 265 k/uL (150-450); RDW 12.5 % (11.5-15.5); WBC 7.6 k/uL (3.8-10.6)
[2020-11-07 15:53] LABS: Potassium 4.4 mmol/L (3.5-5.1)
== END | disposition home or self-care (01) ==
LOC: LABPAT 15:18
PROVIDERS: ATTEND Internal Medicine Interventional Cardiology
DX: Z01.812 Encounter for preprocedural laboratory examination (principal)
CPT/HCPCS: 36415; 80051; 82565; 84520; 85027

== ENCOUNTER 2020-11-13 09:30 | Day surgery (SDC) | payer MEDICARE ==
[2020-11-07 17:36] VITALS: BMI 24.5
[~2020-11-13 09:30] MED LIST changes: +ALPRAZolam 0.25 MG TAB PO PRN; +ALPRAZolam 0.5 MG TAB PO PRN; +ASPIRIN 325 MG TAB PO ONE; +ATORVASTATIN 80 MG TAB PO ONE; -DEXAMETHASONE SOD PHOSPHATE 10 MG/ML 1 ML VIAL IV ONE; +HEPARIN SODIUM,PORCINE 10,000 UNIT in SODIUM CHLORIDE 0.9% 1,000 ML IRRIGATION PRN; +HEPARIN SODIUM,PORCINE 2,500 UNIT in SODIUM CHLORIDE 0.9% 250 ML IRRIGATION PRN; -LIDOCAINE 1% 20 ML VIAL (10MG/ML) FOR IV START INTRADERMA PRN; -MIDAZOLAM 2 MG/2 ML VIAL IV PRN; +NITROGLYCERIN SL TABS 0.4 MG TAB SUBLINGUAL PRN; -ONDANSETRON 4 MG/2 ML VIAL IVP ONE; -SODIUM CHLORIDE 0.9% 1,000 ML IV SCH; +SODIUM CHLORIDE 0.9% 1,000 ML in EMPTY BAG 1 BAG IV ONE; -fentaNYL (PF) 50 MCG/ML 2 ML AMP IV PRN
[2020-11-13] MEDS ORDERED: fentaNYL (PF) 50 MCG/ML 2 ML AMP ONE (11:26)
[2020-11-13] MEDS ORDERED: BENZOCAINE SPRAY 1 CAN MUCOUS MEM ONE (11:41)
[2020-11-13] MEDS ORDERED: LIDOCAINE 1% INJ 10MG/ML (20 ML MDV) ONE (11:50)
[2020-11-13] MEDS ORDERED: fentaNYL (PF) 50 MCG/ML 2 ML AMP IV ONE (11:50)
[2020-11-13] MEDS ORDERED: VERAPAMIL 2.5 MG/ML 2 ML AMP ONE (11:50)
[2020-11-13] MEDS ORDERED: MIDAZOLAM 2 MG/2 ML VIAL IV ONE (11:50)
[2020-11-13] MEDS ORDERED: HEPARIN SODIUM 1,000 UN/ML (10ML VL) ONE (12:22)
[2020-11-13] MEDS: MIDAZOLAM 2 MG/2 ML VIAL IVP ONE ×2 (12:31→12:41)
[2020-11-13] MEDS: LIDOCAINE 1% INJ 10MG/ML (20 ML MDV) SQ ONE ×2 (12:32→12:41)
[2020-11-13] MEDS: VERAPAMIL SYRINGE (5 MG/10 ML) INTRAARTER ONE ×2 (12:34→12:55)
[2020-11-13] MEDS ORDERED: HEPARIN SODIUM 1,000 UN/ML (10ML VL) IVP ONE (12:36)
[2020-11-13] MEDS ORDERED: HYDROmorphone 0.5 MG/0.5 ML SYRINGE IVP ONE (12:44)
[2020-11-13] MEDS ORDERED: IOPAMIDOL-370 125ML BTL INJ ONE (12:53)
[2020-11-13] MEDS ORDERED: RX INFO: IV CONTRAST WAS GIVEN 1 EACH MISC MISCELLANE PRN (13:46)
[2020-11-13] MEDS ORDERED: SODIUM CHLORIDE 0.9% 1,000 ML IV SCH (14:00)
--- NOTE | 2020-11-13 14:16 | ECHOT ---
TRANSESOPHAGEAL ECHOCARDIOGRAM DATE OF SERVICE: November 13, 2020 PERFORMING PHYSICIAN: Joe Hanson MD. PROCEDURE PERFORMED: Transesophageal echocardiogram. INDICATION: Mitral regurgitation. COMPLICATION: None. LEVEL OF SEDATION: Moderate with sedation length of 15 minutes. PROCEDURE DESCRIPTION: After obtaining an informed consent, explaining the procedure, benefits, risks, complications and alternatives, the patient was brought to the transesophageal echocardiogram suite. A pulse oximetry and heart rate monitors were attached to the patient prior to the procedure. The patient's throat was sprayed using lidocaine locally. Following that, the patient was turned into left lateral position. A bite guard was placed and the patient was then sedated with the above doses of Versed and fentanyl in divided doses. Following that, the transesophageal echocardiogram probe was advanced through the bite guard into the mid esophagus where 2-D echocardiogram images as well as color Doppler images of various cardiac structures were obtained. We evaluated the interatrial septum using 2-D echocardiogram, color Doppler, and contrast study. The procedure was completed. There were no complications. The transesophageal echocardiogram was performed using a 2D echo, color Doppler, pulse- wave Doppler, and continuous-wave Doppler as well. FINDINGS: The left ventricular dimension and systolic function appeared to be within normal limits. The EF appeared to be in the range of 50%. The right ventricle appeared to be of normal size and function. The left atrium appeared to be mildly dilated. The left atrial appendage appeared to be free from any thrombus. The aortic valve appeared to be trileaflet valve without stenosis or regurgitation. The mitral valve seems to be mildly thickened with evidence of moderate mitral regurgitation with central jet. The tricuspid valve seems to have evidence of mild to moderate tricuspid regurgitation. No evidence of pericardial effusion seen. CONCLUSION: 1. Low normal left ventricular systolic function with EF of 50% with normal wall motion. 2. Normal right ventricular dimension and systolic function. 3. Mild biatrial enlargement. 4. Intact interatrial septum. 5. Intact left atrial appendage. 6. Trileaflet aortic valve without stenosis or regurgitation. 7. Mildly thickened mitral valve with evidence of only moderate mitral regurgitation. 8. Normal tricuspid valve and pulmonic valve with evidence of mild to moderate TR. 9. No evidence of pericardial effusion. 10.Pacer lead was seen in the right heart chambers. MMODL / IJN: [id number] /
--- NOTE | 2020-11-13 14:32 | CC ---
CARDIAC CATHETERIZATION REPORT DATE OF SERVICE: November 13, 2020 PERFORMING PHYSICIAN: Joe Hanson MD. PROCEDURE PERFORMED: 1. Selective right and left coronary angiogram. 2. Left heart catheterization. 3. Left ventriculography. INDICATION: This is a 64-year-old female patient with history of cardiomyopathy who was diagnosed recently with moderate to severe mitral regurgitation by surface echocardiogram. She underwent transesophageal echocardiogram and she was brought today to undergo a cardiac catheterization. APPROACH: Right radial artery and right common femoral artery. COMPLICATION: None. LEVEL OF SEDATION: Moderate with sedation length of about 20 minutes. PROCEDURE DESCRIPTION: After obtaining an informed consent, the patient was brought to the cardiac blood bank laboratory technician. Initially the right radial artery was accessed. Then we had to abort the right radial approach because the patient was having severe pain in the right arm upon advancing the catheter. After that, right common femoral artery was cannulated using micropuncture technique and a micropuncture wire passed easily. Then I placed a 6-Albanian sheath there. Selective right and left coronary angiogram performed with JR4 and JL3.5 catheters. Left heart catheterization was performed using 6-Albanian pigtail catheter. After that, I did left ventriculography. The procedure was completed without any complication. CORONARY ANGIOGRAM: 1. The RCA is a large caliber vessel. It is a dominant vessel. The RCA is angiographically normal. It distally bifurcates into PDA and PLV branches, both appeared to be angiographically normal. 2. The left main is angiographically normal. It bifurcates into LCX and LAD. 3. The LCX is a large caliber vessel. It is a nondominant vessel and appeared to be angiographically normal. It gives rise into first and second obtuse marginal branches both appeared to be angiographically normal. 4. The LAD: The LAD is angiographically normal. The proximal LAD gives rise into a medium-sized diagonal branch which seems to be angiographically normal. The mid LAD gives rise into a second diagonal branch which seems to be also angiographically normal. The LAD in the midportion to distal portion appeared to be tortuous but angiographically normal. HEMODYNAMICS: The LVEDP was about 2-4 mmHg without significant gradient across aortic valve. LEFT VENTRICULOGRAPHY: Left ventriculography was performed in the GARCIA projection and using a power injection. The left ventricular systolic function appeared to be normal with EF about 50% and only 2+ mitral regurgitation. CONCLUSION: 1. Normal coronary angiogram. 2. Low filling pressure with low LVEDP. 3. 2+ mitral regurgitation. 4. Normal left ventricular systolic function. MMODL / IJN: [id number] /
[2020-11-13] MEDS: ONDANSETRON 4 MG/2 ML VIAL ONE ×2 (14:35→16:35)
[2020-11-13] MEDS ORDERED: HYDROmorphone 1 MG/ML 1 ML SYRINGE ONE (16:21)
[2020-11-13] MEDS ORDERED: HYDROmorphone 1 MG/ML 1 ML SYRINGE IVP PRN (16:22)
[2020-11-13] MEDS ORDERED: ONDANSETRON 4 MG/2 ML VIAL ONE (16:25)
[2020-11-13] MEDS ORDERED: ONDANSETRON 4 MG/2 ML VIAL IVP STA (16:25)
[2020-11-13] MEDS ORDERED: ALBUTEROL NEBULIZED 2.5 MG/3 ML INHALATION PRN (20:20)
[2020-11-13 20:44] LABS: Basophils % (A) 1 %; Eosinophils # (A) 0.3 k/uL (0-0.7); Eosinophils % (A) 4 %; HCT 33.4 % (34.0-46.0); HGB 11.3 gm/dL (11.4-16.0); Lymphocytes # (A) 1.1 k/uL (1.0-4.8); Lymphocytes % (A) 15 %; MCHC 33.8 g/dL (31.0-37.0); MCV 97.8 fL (80.0-100.0); Mean Platelet Volume 6.3; Monocytes # (A) 0.3 k/uL (0-1.0); Monocytes % (A) 5 %; Neutrophils # (A) 5.6 k/uL (1.3-7.7); Neutrophils % (A) 75 %; Platelet Count 202 k/uL (150-450); RBC 3.42 m/uL (3.80-5.40); RDW 13.2 % (11.5-15.5); WBC 7.4 k/uL (3.8-10.6)
[2020-11-13] MEDS ORDERED: MONTELUKAST 10 MG TAB PO SCH (21:00)
[2020-11-13] MEDS: METOPROLOL TARTRATE 25 MG TAB PO SCH (21:11)
[2020-11-14 03:18] VITALS: PULSE 67
[2020-11-14] MEDS ORDERED: LEVOTHYROXINE 50 MCG TAB PO SCH (06:30)
[2020-11-14 07:29] VITALS: BP 105/64; RESP 16; TEMP 97.9
[2020-11-14] MEDS ORDERED: ACETAMINOPHEN TAB 325 MG TAB PO PRN (07:43)
[2020-11-14] MEDS: METOPROLOL TARTRATE 25 MG TAB PO SCH (08:10)
[2020-11-14] MEDS ORDERED: SYMBICORT 160-4.5 MCG INHALER INHALATION SCH (09:00)
[2020-11-14] MEDS ORDERED: ATORVASTATIN 80 MG TAB PO SCH (09:00)
[2020-11-14 10:05] LABS: Basophils # (A) 0.05 X 10*3/uL (0.00-0.10); Basophils % (A) 0.8 %; Eosinophils # (A) 0.24 X 10*3/uL (0.04-0.35); HCT 32.4 % (37.2-46.3); HGB 10.6 g/dL (12.0-15.0); Lymphocytes # (A) 1.26 X 10*3/uL (0.90-5.00); MCH 33.1 pg (27.0-32.0); MCHC 32.7 g/dL (32.0-37.0); MCV 101.3 fL (80.0-97.0); Mean Platelet Volume 8.6 fL (9.5-12.2); Monocytes # (A) 0.41 X 10*3/uL (0.20-1.00); Monocytes % (A) 6.8 %; Neutrophils # (A) 4.01 X 10*3/uL (1.80-7.70); Neutrophils % (A) 67.1 %; Platelet Count 183 X 10*3/uL (140-440); RDW 12.8 % (11.5-14.5); WBC 5.99 X 10*3/uL (4.50-10.00)
--- NOTE | 2020-11-14 10:16 | DS ---
DISCHARGE SUMMARY BRIEF HISTORY: This is a 64-year-old female patient who underwent yesterday a transesophageal echocardiogram as well as a heart catheterization. She was seen this morning. Initially we attempted doing the catheterization from right radial approach, but the patient did have pain and because of that, we aborted that and went from right groin approach. She developed right arm discomfort yesterday and because of that I kept the patient overnight. She did have a good brachial pulse and good radial pulse as well. She developed small hematoma around the right shoulder. The patient is going to be discharged home today and I will follow up with the patient in a week. MMODL / IJN: [id number] /
== END 2020-11-14 10:52 | disposition home or self-care (01) ==
LOC: CATHCVL 09:30 → 6NMEDSUR 17:25 → CATHCVL 11-14 10:52
PROVIDERS: ATTEND Internal Medicine Interventional Cardiology
DX: R06.02 Shortness of breath (principal); R53.83 Other fatigue; I34.0 Nonrheumatic mitral (valve) insufficiency; I42.8 Other cardiomyopathies; Z95.810 Presence of automatic (implantable) cardiac defibrillator; I48.0 Paroxysmal atrial fibrillation; Z20.822 Contact with and (suspected) exposure to COVID-19; I47.2 Ventricular tachycardia; Z79.890 Hormone replacement therapy; Z79.51 Long term (current) use of inhaled steroids; Z79.01 Long term (current) use of anticoagulants; Z79.899 Other long term (current) drug therapy; Z88.5 Allergy status to narcotic agent; Z88.0 Allergy status to penicillin; Z88.2 Allergy status to sulfonamides
CPT/HCPCS: 93312; 93320; 93325; 93458; 85025 ×2; 87635; C1760; C1894 ×2; C1769 ×3; J2250; J2405; J2001; J3010; J1644; J1170 ×3; Q9967

== ENCOUNTER → 2020-11-19 | Outpatient (CLI) | payer MEDICARE ==
[2020-11-19 19:06] LABS: HCT 33.2 % (37.2-46.3); HGB 11.2 g/dL (12.0-15.0); MCH 32.8 pg (27.0-32.0); MCHC 33.7 g/dL (32.0-37.0); MCV 97.4 fL (80.0-97.0); Mean Platelet Volume 8.7 fL (9.5-12.2); Platelet Count 246 X 10*3/uL (140-440); RBC 3.41 X 10*6/uL (4.10-5.20); RDW 12.3 % (11.5-14.5); WBC 6.17 X 10*3/uL (4.50-10.00)
== END | disposition home or self-care (01) ==
LOC: LABWHC1 12:57
PROVIDERS: ATTEND Nurse Practitioner Adult Health
DX: I10 Essential (primary) hypertension (principal)
CPT/HCPCS: 36415; 85027

== ENCOUNTER 2021-07-16 14:48 | Emergency (ER) | payer MEDICARE ==
[2021-07-16 15:02] VITALS: BP 147/96; PULSE 106; RESP 18; TEMP 97.2
--- NOTE | 2021-07-16 15:08 | ED ---
General Adult HPI - General Chief complaint: Recheck/Abnormal Lab/Rx Stated complaint: covid+, wants infusion Time Seen by Provider: 07/16/21 14:54 Source: patient, RN notes reviewed Mode of arrival: ambulatory Limitations: no limitations - History of Present Illness Initial comments: 65-year-old female presents emergency Department with chief complaint of COVID- 19. Patient tested positive today. Patient states symptoms started on Wednesday. Patient states that she has increasing sinus congestion sore throat, body aches and headache. Patient is concerning she has multiple medical comorbidities. Patient has no shortness of breath currently has no productive cough. - Related Data Home Medications Medication Instructions Recorded Confirmed Albuterol Inhaler (Mhu) [Ventolin 2 puff INHALATION RT-Q6H PRN 11/03/16 11/13/20 Hfa Inhaler (Mhu)] Montelukast Sodium [Singulair] 10 mg PO HS 11/03/16 11/13/20 Atorvastatin [Lipitor] 80 mg PO DAILY 02/09/17 11/13/20 Metoprolol Tartrate 37.5 mg PO BID 02/09/17 11/13/20 Fluticasone/Salmeterol [Advair 1 puff INHALATION DAILY 01/25/18 11/13/20 500-50 Diskus] Furosemide [Lasix] 20 mg PO BID 11/07/20 11/13/20 Levothyroxine Sodium [Synthroid] 50 mcg PO DAILY 11/07/20 11/13/20 Losartan [Cozaar] 12.5 mg PO BID 11/07/20 11/13/20 Allergies Allergy/AdvReac Type Severity Reaction Status Date / Time codeine Allergy Rash/Hives Verified 07/16/21 14:59 Penicillins Allergy Dyspnea Verified 07/16/21 14:59 pentazocine [From Talwin] Allergy Dyspnea Verified 07/16/21 14:59 Sulfa (Sulfonamide Allergy Rash/Hives Verified 07/16/21 14:59 Antibiotics) meperidine [From Demerol] AdvReac Vomiting Verified 07/16/21 14:59 Review of Systems ROS Statement: Those systems with pertinent positive or pertinent negative responses have been documented in the HPI. ROS Other: All systems not noted in ROS Statement are negative. 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 Last Myocardial Infarction Date:: ?2016 History of Any Multi-Drug Resistant Organisms: None Reported Past Surgical History: Ablation, Section, Heart Catheterization, Hysterectomy, Pacemaker, Tonsillectomy Additional Past Surgical History / Comment(s): 11/03/16 cardiac cath, x 1, R mastoidectomy. 01/24/18-EPS pt stated 'they were'nt able to do an ablation "but ihad pacemaker/AIC inplanted Past Anesthesia/Blood Transfusion Reactions: Motion Sickness, Postoperative Nausea & Vomiting (PONV) Additional Past Anesthesia/Blood Transfusion Reaction / Comment(s): Slow to wake after anesthesia. clausterphobia Type of Cardiac Device: Permanent Pacemaker, AICD Device Placement Date:: 01/24/18 Past Psychological History: Anxiety Smoking Status: Never smoker Past Alcohol Use History: Occasional Past Drug Use History: None Reported - Past Family History Mother Family Medical History: Cancer, Rheumatoid Arthritis (RA) Additional Family Medical History / Comment(s): Mother had cervical cancer. She at the age of 60 r/t complications from rheumatoid arthritis. Father Family Medical History: No Reported History Additional Family Medical History / Comment(s): Father is very healthy and is 89yrs old. General Exam Limitations: no limitations General appearance: alert, in no apparent distress Head exam: Present: atraumatic, normocephalic, normal inspection Eye exam: Present: normal appearance, PERRL, EOMI. Absent: scleral icterus, c onjunctival injection, periorbital swelling ENT exam: Present: normal exam, normal oropharynx, mucous membranes moist Neck exam: Present: normal inspection, full ROM. Absent: tenderness, meningismus, lymphadenopathy Respiratory exam: Present: normal lung sounds bilaterally. Absent: respiratory distress, wheezes, rales, rhonchi, stridor Cardiovascular Exam: Present: regular rate, normal rhythm, normal heart sounds. Absent: systolic murmur, diastolic murmur, rubs, gallop, clicks Course Vital Signs 07/16/21 14:59 Temperature 97.2 F L Pulse Rate 106 H Respiratory 18 Rate Blood Pressure 147/96 O2 Sat by Pulse 94 L Oximetry Medical Decision Making - Medical Decision Making Patient will receive monoclonal antibodies patient's no obvious distress. Patient be discharged in stable condition return parameters were discussed. Disposition Clinical Impression: COVID-19 Disposition: HOME SELF-CARE Condition: Stable Instructions (If sedation given, give patient instructions): Coronavirus Disease 2019 (COVID-19) Additional Instructions: Please return to the Emergency Department if symptoms worsen or any other concerns. Is patient prescribed a controlled substance at d/c from ED?: No Referrals: Prakash Alejandra MD [Primary Care Provider] - 1-2 days Time of Disposition: 15:08
[2021-07-16] MEDS ORDERED: SODIUM CHLORIDE 0.9% 50 ML IVPB ONE (15:30)
[2021-07-16] MEDS ORDERED: BAMLANIVIMAB (EUA) 700 MG, ETESEVIMAB (EUA) 1,400 MG in SODIUM CHLORIDE 0.9% 100 ML IVPB ONE (15:30)
== END 2021-07-16 17:02 | disposition home or self-care (01) ==
LOC: EC 14:48
DX: U07.1 COVID-19 (principal); I48.91 Unspecified atrial fibrillation; J45.909 Unspecified asthma, uncomplicated; I25.10 Atherosclerotic heart disease of native coronary artery without angina pectoris; E78.5 Hyperlipidemia, unspecified; I10 Essential (primary) hypertension; I25.2 Old myocardial infarction; F41.9 Anxiety disorder, unspecified; Z88.0 Allergy status to penicillin; Z88.5 Allergy status to narcotic agent; Z88.2 Allergy status to sulfonamides; Z90.710 Acquired absence of both cervix and uterus; Z95.0 Presence of cardiac pacemaker
CPT/HCPCS: 96360; 99283; M0245

== ENCOUNTER → 2022-12-15 | Outpatient (CLI) | payer MEDICARE ==
--- NOTE | 2022-12-15 15:55 | BD ---
EXAMINATION TYPE: Axial Bone Density DATE OF EXAM: 12/15/2022 CLINICAL HISTORY: 66 years old Female. ICD-10 CODE: M85.80 OSTEOPENIA Height: 62 Weight: 133 FRAX RISK QUESTIONS: Glucocorticoids (More than 3mos): yes (Ex: prednisone, prednisolone, methylprednisolone, dexamethasone, and hydrocortisone). History of Fracture in Adulthood: yes Secondary Osteoporosis: yes 3. Menopause before 45: yes RISK FACTORS HISTORY OF: hx of lt broken foot 2021, History of Wrist Fracture: hx of lt wrist fx as youth. Postmenopausal woman: yes, at early age of 32, total hysterectomy Take estrogen and/or progesterone medications: yes, in the past from age 32 to 56 yrs old, none now Hyperparathyroidism: no Adrenal Insufficiency: no MEDICATIONS: Prednisone or other steroids: yes, for asthma, since youth Thyroid Medications: yes, synthroid product, for about 4 yrs Additional Medications: bp med, heart meds, Metroprolol, tums, vit d, vit b, zinc, Additional History: hx of heart attack 2016, EXAM MEASUREMENTS: Bone mineral densitometry was performed using the [employer] System. Bone mineral density as measured about the Lumbar spine is: ----- L1-L4(G/cm2): 1.063 T Score Values are as follows: ----- L1: -1.5 ----- L2: -0.9 ----- L3: -1.1 ----- L4: -0.7 ----- L1-L4: -1.0 Z Score Values are as follows: ----- L1: 0.3 ----- L2: 0.9 ----- L3: 0.7 ----- L4: 1.1 ----- L1-L4: 0.8 Bone mineral density has: Decreased -4.9% since study of: 01.13.2008 Bone mineral density about the R hip (g/cm2): 0.871 Bone mineral density about the L hip (g/cm2): 0.876 T Score values are as follows: -----R Neck: -1.5 -----L Neck: -1.7 -----R Total: -1.1 -----L Total: -1.0 Z Score values are as follows: -----R Neck: 0.2 -----L Neck: 0.0 -----R Total: 0.4 -----L Total: 0.4 Bone mineral density has: Decreased -9.3% since study of: 01.13.2008 FRAX%s: The graph provided illustrates a 40.2% chance for a major osteoporotic fx and a 7.0% chance f or the hips probability for fx in 10 years time. IMPRESSION: Osteopenia (T Score between -2.5 and -1). There is slightly increased risk of fracture and the patient may be considered for treatment. Re-Screen 2-5 years. NOTE: T-SCORE=SD OF THE YOUNG ADULT MEAN.
--- NOTE | 2022-12-16 18:48 | MM ---
Reason for Exam: Screening (asymptomatic). Last mammogram was performed 4 year(s) and 11 month(s) ago. Patient History: Menarche at age 13. First Full-Term at age 24. Left ovary removed at age 33. Right ovary removed at age 33. Hysterectomy at age 33. Postmenopausal. Patient has history of breast feeding. Currently using Estrogen, beginning at age 34 for 15 years. Hormonal Contraceptives, starting at age 18 for 5 years. Risk Values: Marcia 5 year model risk: 1.7%. NCI Lifetime model risk: 5.9%. Prior Study Comparison: 02/23/1995 Screening Mammogram, Unknown. 09/30/2012 Bilateral Screening Mammogram, [facility]. 08/29/2015 Bilateral Screening Mammogram, [facility]. 01/12/2018 Bilateral Screening Mammogram, [facility]. Tissue Density: The breast tissue is heterogeneously dense. This may lower the sensitivity of mammography. Findings: Analyzed By CAD. Abdomen appears symmetrical and stable. Pacemaker overlies left chest. Scattered benign-appearing calcifications are present bilaterally. No suspicious groups of microcalcifications, spiculated or lobular masses, architectural distortion or other secondary signs of malignancy are mammographically apparent. Overall Assessment: Benign, BI-RAD 2 Management: Screening Mammogram of both breasts in 1 year. A negative mammogram report should not preclude additional follow up of suspicious palpable abnormalities. Patient should continue monthly self breast exam. A clinical breast exam by your physician is recommended on an annual basis and results should be correlated with mammographic findings. Electronically signed and approved by: Ariel Griffin D.O. Radiologis
== END | disposition home or self-care (01) ==
LOC: RADBDWWP 13:25
PROVIDERS: ATTEND Family Medicine
DX: Z12.31 Encounter for screening mammogram for malignant neoplasm of breast (principal); M85.89 Other specified disorders of bone density and structure, multiple sites; Z78.0 Asymptomatic menopausal state
CPT/HCPCS: 77063; 77067; 77080

== ENCOUNTER 2023-06-29 12:14 | Inpatient (IN) | payer MEDICARE ==
--- NOTE | 2023-06-29 13:03 | ED ---
General Adult HPI - General Stated complaint: SOB,Heart Palp Time Seen by Provider: 06/29/23 12:16 Source: patient, RN notes reviewed Mode of arrival: ambulatory Limitations: no limitations - History of Present Illness Initial comments: 67-year-old female presents emergency Department with chief complaint of nausea vomiting palpitations, shortness breath, burning sensation in chest. Patient states she's been sick since Wednesday has greatly worsened. She states she has extremely sore throat, fatigue, body aches. She states is dehydrated she denies any known sick contacts other than recent RSV exposure. Patient denies any localized abdominal pain. - Related Data Home Medications Medication Instructions Recorded Confirmed Albuterol Inhaler [Ventolin Hfa 2 puff INHALATION RT-Q6H PRN 11/03/16 06/29/23 Inhaler] Montelukast Sodium [Singulair] 10 mg PO DAILY 11/03/16 06/29/23 Atorvastatin [Lipitor] 80 mg PO DAILY 02/09/17 06/29/23 Metoprolol Tartrate 37.5 mg PO DAILY 02/09/17 06/29/23 Levothyroxine Sodium [Synthroid] 50 mcg PO DAILY 11/07/20 06/29/23 Apixaban [Eliquis] 5 mg PO BID 06/29/23 06/29/23 Cyclosporine (Cequa) 0.09% 1 applic BOTH EYES DAILY 06/29/23 06/29/23 Dropperette Metoprolol Tartrate [Lopressor] 50 mg PO HS 06/29/23 06/29/23 Allergies Allergy/AdvReac Type Severity Reaction Status Date / Time codeine Allergy Rash/Hives Verified 06/29/23 14:59 Penicillins Allergy Dyspnea, Verified 06/29/23 14:59 rash pentazocine [From Talwin] Allergy Dyspnea Verified 06/29/23 14:59 Sulfa (Sulfonamide Allergy Rash/Hives, Verified 06/29/23 14:59 Antibiotics) Difficulty breathing meperidine [From Demerol] AdvReac Vomiting Verified 06/29/23 14:59 Review of Systems ROS Statement: Those systems with pertinent positive or pertinent negative responses have been documented in the HPI. ROS Other: All systems not noted in ROS Statement are negative. 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 Last Myocardial Infarction Date:: History of Any Multi-Drug Resistant Organisms: None Reported Past Surgical History: Ablation, Section, Heart Catheterization, Hysterectomy, Pacemaker, Tonsillectomy Additional Past Surgical History / Comment(s): 11/03/16 cardiac cath, x 1, R mastoidectomy. 01/24/18-EPS pt stated 'they were'nt able to do an ablation "but ihad pacemaker/AIC inplanted Past Anesthesia/Blood Transfusion Reactions: Motion Sickness, Postoperative Nicho sea & Vomiting (PONV) Additional Past Anesthesia/Blood Transfusion Reaction / Comment(s): Slow to wake after anesthesia. clausterphobia Type of Cardiac Device: Permanent Pacemaker, AICD Device Placement Date:: 01/24/18 Past Psychological History: Anxiety Smoking Status: Never smoker Past Alcohol Use History: Occasional Past Drug Use History: None Reported - Past Family History Mother Family Medical History: Cancer, Rheumatoid Arthritis (RA) Additional Family Medical History / Comment(s): Mother had cervical cancer. She at the age of 60 r/t complications from rheumatoid arthritis. Father Family Medical History: No Reported History Additional Family Medical History / Comment(s): Father is very healthy and is 89yrs old. General Exam Limitations: no limitations General appearance: alert, in no apparent distress Head exam: Present: atraumatic, normocephalic, normal inspection Eye exam: Present: normal appearance, PERRL, EOMI. Absent: scleral icterus, conjunctival injection, periorbital swelling ENT exam: Present: normal exam, normal oropharynx, mucous membranes moist Neck exam: Present: normal inspection, full ROM. Absent: tenderness, meningismus, lymphadenopathy Respiratory exam: Present: normal lung sounds bilaterally. Absent: respiratory distress, wheezes, rales, rhonchi, stridor Cardiovascular Exam: Present: regular rate, normal rhythm, normal heart sounds. Absent: systolic murmur, diastolic murmur, rubs, gallop, clicks GI/Abdominal exam: Present: soft, normal bowel sounds. Absent: distended, tenderness, guarding, rebound, rigid Neurological exam: Present: alert Course Vital Signs 06/29/23 13:32 Temperature 98.6 F Pulse Rate 106 H Respiratory 18 Rate Blood Pressure 88/60 O2 Sat by Pulse 95 Oximetry EKG Findings - EKG Comments: EKG Findings:: EKG performed at 13:54 sinus tachycardia rate of 109 [place] 141 QRS 82 QT/QTC 334/398 - EKG Results: EKG: interpreted by INDIRA Medical Decision Making - Medical Decision Making Was pt. sent in by a medical professional or institution (, LINK, HOUSEKEEPING LEAD, urgent care, hospital, or custodial...) When possible be specific @ -No Did you speak to anyone other than the patient for history (EMS, parent, family, police, friend...)? What history was obtained from this source @ -No Did you review nursing and triage notes (agree or disagree)? Why? @ -I reviewed and agree with nursing and triage notes Were old charts reviewed (outside hosp., previous admission, EMS record, old EKG, old radiological studies, urgent care reports/EKG's, custodial records)? Report findings @ -No old charts were reviewed Differential Diagnosis (chest pain, altered mental status, abdominal pain women, abdominal pain men, vaginal bleeding, weakness, fever, dyspnea, syncope, headache, dizziness, GI bleed, back pain, seizure, CVA, palpatations, mental health, musculoskeletal)? @ -COVID 19, RSV, influenza, pneumonia, acute bronchitis, URI, this list is not all inclusivee EKG interpreted by me (3pts min.). @ -As above X-rays interpreted by me (1pt min.). @ -Chest x-ray shows no acute cardio pulmonary process CT interpreted by me (1pt min.). @ -None done U/S interpreted by me (1pt. min.). @ -None done What testing was considered but not performed or refused? (CT, X-rays, U/S, labs)? Why? @ -None What meds were considered but not given or refused? Why? @ -None Did you discuss the management of the patient with other professionals (professionals i.e. LINK Dowd, HOUSEKEEPING LEAD, lab, RT, psych nurse, social media editor, human factors advisor lead, teacher, chief merchandising officer, employment evaluator/case manager)? Give summary @ -[Dr. Alejandra for admission secondary to hypotension, dehydration, hypoxia. Was smoking cessation discussed for >3mins.? @ -No Was critical care preformed (if so, how long)? @ -No Were there social determinants of health that impacted care today? How? (Homelessness, low income, unemployed, alcoholism, drug addiction, transporta tion, low edu. Level, literacy, decrease access to med. care, halfway, rehab)? @ -No Was there de-escalation of care discussed even if they declined (Discuss DNR or withdrawal of care, Hospice)? DNR status @ -No What co-morbidities impacted this encounter? (DM, HTN, Smoking, COPD, CAD, Cancer, CVA, ARF, Chemo, Hep., AIDS, mental health diagnosis, sleep apnea, morbid obesity)? @ -CAD Was patient admitted / discharged? Hospital course, mention meds given and route, prescriptions, significant lab abnormalities, going to OR and other pertinent info. @ -Admitted patient presented for URI symptoms patient found to have COVID-19. Patient is acutely dehydrated, having moderate hypotension and acute hypoxia. She states her pulse ox was in the 80s at home. Patient's is extremely weak, fatigued. Patient will be admitted for symptomatically full. Undiagnosed new problem with uncertain prognosis? @ -No Drug Therapy requiring intensive monitoring for toxicity (Heparin, Nitro, Insulin, Cardizem)? @ -No Were any procedures done? @ -No Diagnosis/symptom? @ -COVID-19, hypoxia, dehydration Acute, or Chronic, or Acute on Chronic? @ -Acute Uncomplicated (without systemic symptoms) or Complicated (systemic symptoms)? @ -complicated Side effects of treatment? @ -No Exacerbation, Progression, or Severe Exacerbation? @ -No Poses a threat to life or bodily function? How? (Chest pain, USA, RI, pneumonia, PE, COPD, DKA, ARF, appy, cholecystitis, CVA, Diverticulitis, Homicidal, Suicidal, threat to staff... and all critical care pts) @ -No - Lab Data Result diagrams: 06/29/23 14:25 06/29/23 14:25 Lab Results 06/29/23 06/29/23 06/29/23 Range/Units 14:25 14:25 14:25 WBC 8.6 (3.8-10.6) k/uL RBC 4.27 (3.80-5.40) m/uL Hgb 14.4 (11.4-16.0) gm/dL Hct 42.2 (34.0-46.0) % MCV 98.9 (80.0-100.0) fL MCH 33.8 (25.0-35.0) pg MCHC 34.2 (31.0-37.0) g/dL RDW 12.9 (11.5-15.5) % Plt Count 149 L (150-450) k/uL MPV 7.5 Neutrophils % (Manual) 78 % Band Neuts % (Manual) 11 % Lymphocytes % (Manual) 6 % Monocytes % (Manual) 5 % Neutrophils # (Manual) 7.60 (1.3-7.7) k/uL Lymphocytes # (Manual) 0.52 L (1.0-4.8) k/uL Monocytes # (Manual) 0.43 (0-1.0) k/uL Nucleated RBCs 0 (0-0) /100 WBC Manual Slide Review Performed Sodium 131 L (137-145) mmol/L Potassium 3.9 (3.5-5.1) mmol/L Chloride 94 L (98-107) mmol/L Carbon Dioxide 25 (22-30) mmol/L Anion Gap 12 mmol/L BUN 15 (7-17) mg/dL Creatinine 0.93 (0.52-1.04) mg/dL Est GFR (CKD-EPI)AfAm 74 (>60 ml/min/1.73 sqM) Est GFR (CKD-EPI)NonAf 64 (>60 ml/min/1.73 sqM) Glucose 107 H (74-99) mg/dL Plasma Lactic Acid Lane (0.7-2.0) mmol/L Calcium 9.2 (8.4-10.2) mg/dL Magnesium 1.5 L (1.6-2.3) mg/dL Total Bilirubin 1.0 (0.2-1.3) mg/dL AST 32 (14-36) U/L ALT 27 (4-34) U/L Alkaline Phosphatase 84 (38-126) U/L Troponin I (0.000-0.034) ng/mL Total Protein 7.1 (6.3-8.2) g/dL Albumin 4.3 (3.5-5.0) g/dL Influenza Type A (PCR) (Not Detectd) Influenza Type B (PCR) (Not Detectd) RSV (PCR) (Not Detectd) SARS-CoV-2 (PCR) (Not Detectd) Group A Strep (PCR) NOT DETECTED (Not Detectd) 06/29/23 06/29/23 06/29/23 Range/Units 14:25 14:25 14:25 WBC (3.8-10.6) k/uL RBC (3.80-5.40) m/uL Hgb (11.4-16.0) gm/dL Hct (34.0-46.0) % MCV (80.0-100.0) fL MCH (25.0-35.0) pg MCHC (31.0-37.0) g/dL RDW (11.5-15.5) % Plt Count (150-450) k/uL MPV Neutrophils % (Manual) % Band Neuts % (Manual) % Lymphocytes % (Manual) % Monocytes % (Manual) % Neutrophils # (Manual) (1.3-7.7) k/uL Lymphocytes # (Manual) (1.0-4.8) k/uL Monocytes # (Manual) (0-1.0) k/uL Nucleated RBCs (0-0) /100 WBC Manual Slide Review Sodium (137-145) mmol/L Potassium (3.5-5.1) mmol/L Chloride (98-107) mmol/L Carbon Dioxide (22-30) mmol/L Anion Gap mmol/L BUN (7-17) mg/dL Creatinine (0.52-1.04) mg/dL Est GFR (CKD-EPI)AfAm (>60 ml/min/1.73 sqM) Est GFR (CKD-EPI)NonAf (>60 ml/min/1.73 sqM) Glucose (74-99) mg/dL Plasma Lactic Acid Lane 1.1 (0.7-2.0) mmol/L Calcium (8.4-10.2) mg/dL Magnesium (1.6-2.3) mg/dL Total Bilirubin (0.2-1.3) mg/dL AST (14-36) U/L ALT (4-34) U/L Alkaline Phosphatase (38-126) U/L Troponin I 0.026 (0.000-0.034) ng/mL Total Protein (6.3-8.2) g/dL Albumin (3.5-5.0) g/dL Influenza Type A (PCR) Not Detected (Not Detectd) Influenza Type B (PCR) Not Detected (Not Detectd) RSV (PCR) Not Detected (Not Detectd) SARS-CoV-2 (PCR) Detected A (Not Detectd) Group A Strep (PCR) (Not Detectd) Disposition Clinical Impression: COVID-19, Dehydration, Hypoxia, Weakness Disposition: ADMITTED IP TO THIS HOSP Condition: Fair Referrals: Prakash Alejandra MD [Primary Care Provider] - 1-2 days Time of Disposition: 16:15
[2023-06-29] MEDS ORDERED: SODIUM CHLORIDE 0.9% 500 ML 500 ML IV ONE (14:07)
[2023-06-29] MEDS ORDERED: ONDANSETRON 4 MG/2 ML VIAL IVP STA (14:12)
--- NOTE | 2023-06-29 14:33 | XR ---
EXAMINATION TYPE: XR chest 2V DATE OF EXAM: 06/29/2023 COMPARISON: 01/25/2018 HISTORY: Shortness of breath TECHNIQUE: Frontal and lateral views of the chest are obtained. FINDINGS: There is a single lead cardiac pacemaker unchanged in position The lungs are clear. There is no pleural effusion or pneumothorax. Heart and pulmonary vasculature are normal. The osseous structures are intact. IMPRESSION: No acute cardiopulmonary process.
[2023-06-29] MEDS: SODIUM CHLORIDE 0.9% 1,000 ML IV SCH ×2 (14:41→20:41)
[2023-06-29 14:44] LABS: HCT 42.2 % (34.0-46.0); HGB 14.4 gm/dL (11.4-16.0); MCH 33.8 pg (25.0-35.0); MCHC 34.2 g/dL (31.0-37.0); MCV 98.9 fL (80.0-100.0); Mean Platelet Volume 7.5; Platelet Count 149 k/uL (150-450); RBC 4.27 m/uL (3.80-5.40); RDW 12.9 % (11.5-15.5); WBC 8.6 k/uL (3.8-10.6)
[2023-06-29] MEDS ORDERED: KETOROLAC 15 MG/ML 1 ML VIAL IVP STA (14:50)
[2023-06-29 15:02] LABS: ALT 27 U/L (4-34); AST 32 U/L (14-36); African American GFR (CKD) 74 (>60 ml/min/1.73 sqM); Albumin 4.3 g/dL (3.5-5.0); Alkaline Phosphatase 84 U/L (38-126); Anion Gap 12 mmol/L; Blood Urea Nitrogen 15 mg/dL (7-17); Calcium 9.2 mg/dL (8.4-10.2); Carbon Dioxide 25 mmol/L (22-30); Chloride 94 mmol/L (98-107); Glucose 107 mg/dL (74-99); Magnesium 1.5 mg/dL (1.6-2.3); Non-African American GFR(CKD) 64 (>60 ml/min/1.73 sqM); Potassium 3.9 mmol/L (3.5-5.1); Sodium 131 mmol/L (137-145); Total Protein 7.1 g/dL (6.3-8.2)
[2023-06-29 15:20] LABS: Band Neutrophils % 11 %; Lymphocytes # (M) 0.52 k/uL (1.0-4.8); Monocytes # (M) 0.43 k/uL (0-1.0); Neutrophils % (M) 78 %; Nucleated Red Blood Cells 0 /100 WBC (0-0); Total Cells Counted 200
[2023-06-29] MEDS ORDERED: NALOXONE 0.4 MG/ML 1 ML VIAL IV PRN (16:16)
[2023-06-29] MEDS ORDERED: KETOROLAC 15 MG/ML 1 ML VIAL IVP PRN (16:16)
[2023-06-29] MEDS ORDERED: DEXAMETHASONE SOD PHOSPHATE 10 MG/ML 1 ML VIAL IVP STA (16:26)
[2023-06-29] MEDS ORDERED: ENOXAPARIN 40 MG/0.4 ML SYRINGE SQ SCH (17:45)
[2023-06-29] MEDS ORDERED: ALBUTEROL NEBULIZED 2.5 MG/3 ML INHALATION PRN (20:14)
[2023-06-29] MEDS ORDERED: METOPROLOL TARTRATE 5 MG/5 ML VIAL IVP STA ×2 (20:16→20:36)
[2023-06-29] MEDS: METOPROLOL TARTRATE 50 MG TAB PO SCH (20:26)
[2023-06-29] MEDS: DEXAMETHASONE SOD PHOSPHATE 10 MG/ML 1 ML VIAL IV SCH (20:27)
[2023-06-30] MEDS ORDERED: DILTIAZEM 125 MG in SODIUM CHLORIDE 0.9% 100 ML IV SCH (02:45)
[2023-06-30] MEDS: ALBUTEROL HFA INHALER INHALATION PRN ×4 (03:56→20:29)
--- NOTE | 2023-06-30 05:10 | P.CNPUL ---
History of Present Illness Consult date: 06/30/23 Requesting physician: Kiko Cameron Reason for consult: dyspnea, cough, other (COVID-19) Chief complaint: Shortness of breath, cough History of present illness: I am seeing this patient in consultation today 06/30/2023 in the emergency room, room 24, after she tested positive for COVID-19. Patient is a 67-year-old white female with past medical history significant for nonischemic cardiomyopathy, V. tach with AICD implantation, paroxysmal atrial fibrillation, hyperlipidemia, hypertension, asthma, among other things. Reportedly follows with Dr. Barker for management of her asthma. She uses an as needed albuterol rescue inhaler. She has not been vaccinated for COVID-19. Patient states that she's been having a sore throat, earache, cough, chest burning, subjective fever/chills, and wors ening shortness of breath since Wednesday. She states that she did attend a family alliance party, and her brother's grandkids were sick. When reportedly tested positive for RSV later. On arrival to the emergency room, she did test positive for COVID-19. She was orignally requiring low flow oxygen. Chest x-ray did not show any acute infiltrates or evidence of COVID-19 pneumonia. Patient is currently sitting up in bed, on room air, in no acute distress. SpO2 94%. She's been started on Decadron. Heart rhythm is currently atrial fibrillation with rapid ventricular rate of 100-140 bpm. States that she missed several doses of metoprolol because of some nausea and vomiting, which is now subsided. Card izem is to be started at 10 mg per hour per cardiology. Blood pressure stable. CBC on arrival was unremarkable. BMP shows sodium 131, potassium 3.9, chloride 94, serum bicarb 25, BUN 15, creatinine 0.93, glucose 107. Troponin 0.026. Normal saline infusing at 75 mL per hour. Vital signs are stable. Patient will be admitted to the cardiac stepdown unit. Review of Systems REVIEW OF SYSTEMS: CONSTITUTIONAL: Denies any recent significant weight loss or weight gain. Admits to subjective fevers and chills. EYES: Denies change in vision. EARS, NOSE, MOUTH, THROAT: Admits intermittent headaches and sore throat CARDIOVASCULAR: Denies chest pain or syncopal episodes. Does admit occasional heart palpitations and associated lightheadedness. RESPIRATORY: See HPI GASTROINTESTINAL: Denies change in appetite, abdominal pain,or diarrhea. admits nausea and vomiting over last 48 hours, which is now subsided. GENITOURINARY: Denies hematuria, denies infections. MUSKULOSKELETAL: Denies pain, denies swelling. INTEGUMENTARY: Denies rash, denies eczema. NEUROLOGICAL: Denies recent memory loss, no recent seizure activity. PSYCHIATRIC: Denies anxiety, denies depression. HEMATOLOGIC/LYMPHATIC: Denies anemia, denies enlarged lymph node Past Medical History Past Medical History: Atrial Fibrillation, Asthma, Coronary Artery Disease (CAD), Hyperlipidemia, Hypertension, Myocardial Infarction ([place]), Pneumonia Additional Past Medical History / Comment(s): Spring 2016 pneumonia/pleurisy, 11/03/16 stress induced cardiomyopathy and pt states has been told she had a TN at that time-states EF has improved from 18% to 40% and is attending cardiac rehab, vertigo and balance issues at times. Last Myocardial Infarction Date:: 2016 History of Any Multi-Drug Resistant Organisms: None Reported Past Surgical History: Ablation, Section, Heart Catheterization, Hysterectomy, Pacemaker, Tonsillectomy Additional Past Surgical History / Comment(s): 11/03/16 cardiac cath, x 1, R mastoidectomy. 01/24/18-EPS pt stated 'they were'nt able to do an ablation "but ihad pacemaker/AIC inplanted Past Anesthesia/Blood Transfusion Reactions: Motion Sickness, Postoperative Nausea & Vomiting (PONV) Additional Past Anesthesia/Blood Transfusion Reaction / Comment(s): Slow to wake after anesthesia. clausterphobia Type of Cardiac Device: Permanent Pacemaker, AICD Device Placement Date:: 01/24/18 Past Psychological History: Anxiety Additional Psychological History / Comment(s): Pt resides with her spouse. They have 1 dog. She works for [employer] at the [employer] but is currently in cardiac rehab and off work. She is independent. Smoking Status: Never smoker Past Alcohol Use History: Occasional Past Drug Use History: None Reported - Past Family History Mother Family Medical History: Cancer, Rheumatoid Arthritis (RA) Additional Family Medical History / Comment(s): Mother had cervical cancer. She at the age of 60 r/t complications from rheumatoid arthritis. Father Family Medical History: No Reported History Additional Family Medical History / Comment(s): Father is very healthy and is 89yrs old. Medications and Allergies Home Medications Medication Instructions Recorded Confirmed Type Albuterol Inhaler [Ventolin Hfa 2 puff INHALATION RT-Q6H PRN 11/03/16 06/29/23 History Inhaler] Montelukast Sodium [Singulair] 10 mg PO DAILY 11/03/16 06/29/23 History Atorvastatin [Lipitor] 80 mg PO DAILY 02/09/17 06/29/23 History Metoprolol Tartrate 37.5 mg PO DAILY 02/09/17 06/29/23 History Levothyroxine Sodium [Synthroid] 50 mcg PO DAILY 11/07/20 06/29/23 History Apixaban [Eliquis] 5 mg PO BID 06/29/23 06/29/23 History Cyclosporine (Cequa) 0.09% 1 applic BOTH EYES DAILY 06/29/23 06/29/23 History Dropperette Metoprolol Tartrate [Lopressor] 50 mg PO HS 06/29/23 06/29/23 History Allergies Allergy/AdvReac Type Severity Reaction Status Date / Time codeine Allergy Rash/Hives Verified 06/29/23 14:59 Penicillins Allergy Dyspnea, Verified 06/29/23 14:59 rash pentazocine [From Talwin] Allergy Dyspnea Verified 06/29/23 14:59 Sulfa (Sulfonamide Allergy Rash/Hives, Verified 06/29/23 14:59 Antibiotics) Difficulty breathing meperidine [From Demerol] AdvReac Vomiting Verified 06/29/23 14:59 Physical Exam Vitals: Vital Signs Temp Pulse Pulse Resp BP BP Pulse Ox 06/30/23 02:10 97.5 F L 113 H 97/73 94 L 06/29/23 23:16 124 H 99/54 96 06/29/23 21:32 125 H 99/67 96 06/29/23 21:17 105/74 97 06/29/23 20:46 97.6 F 06/29/23 15:34 98 17 118/65 97 06/29/23 14:34 90 L 06/29/23 13:32 98.6 F 106 H 18 88/60 95 Intake and Output 06/29/23 06/29/23 06/30/23 14:59 22:59 06:59 Other: # Voids 1 Weight 59.874 kg 59.874 kg GENERAL EXAM: Alert, 67-year-old white female , comfortable in no apparent distress. HEAD: Normocephalic and atraumatic EYES: Normal reaction of pupils, equal size. NOSE: Clear with pink turbinates. THROAT: No erythema or exudates. NECK: No masses, no JVD. CHEST: No chest wall deformity. LUNGS: Equal air entry with no crackles, wheeze, rhonchi or dullness. On room air. SpO2 94%. No conversational dyspnea or accessory muscle use.. CVS: S1 and S2 normal with no audible murmur, irregular rhythm. No extra heart sounds ABDOMEN: No hepatosplenomegaly, active bowel sounds, no guarding or rigidity. SPINE: No scoliosis or deformity SKIN: No rashes CENTRAL NERVOUS SYSTEM: No focal deficits, tone is normal in all 4 extremities. EXTREMITIES: There is no peripheral edema, clubbing, or cyanosis. Peripheral pulses are intact. Results - Laboratory Findings CBC and BMP: 06/29/23 14:25 06/29/23 14:25 Abnormal lab findings: Abnormal Labs 06/29/23 06/29/23 06/29/23 14:25 14:25 14:25 Plt Count 149 L Lymphocytes # (Manual) 0.52 L Sodium 131 L Chloride 94 L Glucose 107 H Magnesium 1.5 L SARS-CoV-2 (PCR) Detected A - Diagnostic Findings Chest x-ray: image reviewed Assessment and Plan Assessment: Acute COVID-19 infection, chest x-ray shows no acute infiltrates or evidence of COVID-19 pneumonia. Atrial fibrillation with rapid ventricular rate, will be started on Cardizem infusion per cardiology Acute dyspnea, likely secondary to above Severe dehydration History of asthma, stable History of nonischemic cardiomyopathy History of AICD implantation Hyperlipidemia Hypertension Hypothyroidism Plan: Patient's medications, labs, chest x-ray reviewed. No evidence of COVID-19 pneumonia. Patient started on Decadron. Currently on room air, and not a candidate for Remdesivir. Negative for influenza, RSV. Cardiology will start the patient on Cardizem infusion at 10 mg per hour. Blood pressure stable. Home cardiac meds have been restarted including metoprolol and Eliquis. She had missed several doses in the last 48 hours. Nausea and vomiting is improved with Zofran. Maintenance fluids infusing. We will continue to follow, and further recommendations are forthcoming I have personally seen and examined the patient, performed the documentation and the assessment and plan as written. Number of minutes spent on the visit:20 Time with Patient: Greater than 30
[2023-06-30] MEDS: LEVOTHYROXINE 50 MCG TAB PO SCH (06:18)
--- NOTE | 2023-06-30 09:10 | CONS ---
CONSULTATION HISTORY OF PRESENT ILLNESS: Renée is a 67-year-old lady with history of cardiomyopathy, status post pacer defibrillator, history of paroxysmal atrial fibrillation, hypertension, dyslipidemia, and hypothyroidism, who presents to hospital complaining of cough, fever, and not feeling well for the last 1 week and has tested positive for coronavirus infection. She has pneumonia, hypoxia, and a febrile illness related to COVID. The patient on her initial presentation was in atrial fibrillation with rapid ventricular rate, for which Cardiology had been consulted. She was treated with intravenous Cardizem and subsequently converted to sinus rhythm and this had been stopped. At the time of my evaluation, patient appears comfortable at rest, in sinus rhythm, and her predominant symptom is related to her underlying respiratory illness. PAST MEDICAL HISTORY: Significant for apical ballooning syndrome, cardiomyopathy status post AICD, and paroxysmal atrial fibrillation. CURRENT MEDICATIONS: Include Eliquis 5 mg b.i.d., metoprolol tartrate 37.5 mg daily, Singulair, Lipitor and albuterol. ALLERGIES: She has multiple drug allergies. I reviewed them. They are charted. SOCIAL HISTORY: Negative for smoking, EtOH abuse or drug abuse. REVIEW OF SYSTEMS: HEENT: Unremarkable. CARDIAC: As described above. RESPIRATORY: As described above. GI: Negative. GENITOURINARY: Negative. ALLERGY/IMMUNOLOGY: Negative. SKIN: Negative. MUSCULOSKELETAL: Significant for arthritis. PSYCHOSOCIAL: Negative. DERM: Negative. CONSTITUTIONAL: As described above. Rest of the system review is not relevant. PHYSICAL EXAMINATION: VITAL SIGNS: The patient is afebrile. Heart rate is 70 beats per minute, blood pressure is 110/70, respiratory rate 18, O2 saturation is 94% on room air. There is no jugular venous distention. CHEST: Reveals occasional rhonchi bilaterally. HEART: Reveals first and second heart sounds. Systolic murmur at the apex. ABDOMEN: Soft. EXTREMITIES: Did not reveal any edema, peripheral pulses are felt. LABORATORY DATA: Show a hemoglobin of 14.4, platelet count is 149, potassium is 3.9, creatinine is 0.9. The patient tested positive for coronavirus infection. ASSESSMENT: 1. Paroxysmal atrial fibrillation. 2. Cardiomyopathy, status post AICD. 3. Chronic obstructive pulmonary disease. 4. COVID-19 pneumonia. PLAN: From cardiac standpoint, we will continue the patient on beta-vini and the Eliquis that she is on along with Lipitor. Obtain a 2D echo to document LV function and if she has LV systolic dysfunction, consider adding an CHALO inhibitor. ELINOR / IJN: [id number] /
[2023-06-30] MEDS: MONTELUKAST 10 MG TAB PO SCH (09:11)
[2023-06-30] MEDS: METOPROLOL TARTRATE 25 MG TAB PO SCH (09:11)
[2023-06-30] MEDS: APIXABAN 5 MG TAB PO SCH ×4 (09:11→20:30)
[2023-06-30] MEDS: ATORVASTATIN 80 MG TAB PO SCH ×2 (09:12→20:22)
[2023-06-30] MEDS: DEXAMETHASONE SOD PHOSPHATE 10 MG/ML 1 ML VIAL IV SCH (09:12)
[2023-06-30] MEDS: CYCLOSPORINE 0.09% BOTH EYES SCH (09:17)
--- NOTE | 2023-06-30 11:05 | P.CNPUL ---
History of Present Illness Consult date: 06/30/23 History of present illness: History of Present Illness Consult date: 06/30/23 Requesting physician: Kiko Cameron Reason for consult: dyspnea, cough, other (COVID-19) Chief complaint: Shortness of breath, cough History of present illness: I am seeing this patient in consultation today 06/30/2023 in the emergency room, room 24, after she tested positive for COVID-19. Patient is a 67-year-old white female with past medical history significant for nonischemic cardiomyopathy, V. tach with AICD implantation, paroxysmal atrial fibrillation, hyperlipidemia, hypertension, asthma, among other things. Reportedly follows with Dr. Barker for management of her asthma. She uses an as needed albuterol rescue inhaler. She has not been vaccinated for COVID-19. Patient states that she's been having a sore throat, earache, cough, chest burning, subjective fever/chills, and worsening shortness of breath since Wednesday. She states that she did attend a family democrat, and her brother's grandkids were sick. When reportedly tested pos itive for RSV later. On arrival to the emergency room, she did test positive for COVID-19. She was orignally requiring low flow oxygen. Chest x-ray did not show any acute infiltrates or evidence of COVID-19 pneumonia. Patient is currently sitting up in bed, on room air, in no acute distress. SpO2 94%. She's been started on Decadron. Heart rhythm is currently atrial fibrillation with rapid ventricular rate of 100-140 bpm. States that she missed several doses of metoprolol because of some nausea and vomiting, which is now subsided. Cardizem is to be started at 10 mg per hour per cardiology. Blood pressure stable. CBC on arrival was unremarkable. BMP shows sodium 131, potassium 3.9, chloride 94, serum bicarb 25, BUN 15, creatinine 0.93, glucose 107. Troponin 0.026. Normal saline infusing at 75 mL per hour. Vital signs are stable. Patient will be admitted to the cardiac stepdown unit. I saw this patient in emergency department this morning. The patient is already feeling somewhat better. She is on room air oxygen. She continues to have some congested cough. She is complaining of generalized weakness and some GI upset. Note that this is not the patient's first infection. She has been infected in the past and she seems to be getting infected with Covid 19 on a yearly basis. During her last infection, she was treated with Paxlovid. She has not received any previous Covid 19 vaccination. I reviewed the chest x-ray and there is no evidence of any pneumonia at this point in time. She has a defibrillator in place. Her cardiac rhythm is back into normal sinus at this point in time. She remains on Decadron. Review of Systems REVIEW OF SYSTEMS: CONSTITUTIONAL: Denies any recent significant weight loss or weight gain. Admits to subjective fevers and chills. EYES: Denies change in vision. EARS, NOSE, MOUTH, THROAT: Admits intermittent headaches and sore throat CARDIOVASCULAR: Denies chest pain or syncopal episodes. Does admit occasional heart palpitations and associated lightheadedness. RESPIRATORY: See HPI GASTROINTESTINAL: Denies change in appetite, abdominal pain,or diarrhea. admits nausea and vomiting over last 48 hours, which is now subsided. GENITOURINARY: Denies hematuria, denies infections. MUSKULOSKELETAL: Denies pain, denies swelling. INTEGUMENTARY: Denies rash, denies eczema. NEUROLOGICAL: Denies recent memory loss, no recent seizure activity. PSYCHIATRIC: Denies anxiety, denies depression. 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 Last Myocardial Infarction Date:: 2016 History of Any Multi-Drug Resistant Organisms: None Reported Past Surgical History: Ablation, Section, Heart Catheterization, Hysterectomy, Pacemaker, Tonsillectomy Additional Past Surgical History / Comment(s): 11/03/16 cardiac cath, x 1, R mastoidectomy. 01/24/18-EPS pt stated 'they were'nt able to do an ablation "but ihad pacemaker/AIC inplanted Past Anesthesia/Blood Transfusion Reactions: Motion Sickness, Postoperative Nausea & Vomiting (PONV) Additional Past Anesthesia/Blood Transfusion Reaction / Comment(s): Slow to wake after anesthesia. clausterphobia Type of Cardiac Device: Permanent Pacemaker, AICD Device Placement Date:: 01/24/18 Past Psychological History: Anxiety Additional Psychological History / Comment(s): Pt resides with her spouse. They have 1 dog. She works for [employer] at the [employer] but is currently in cardiac rehab and off work. She is independent. Smoking Status: Never smoker Past Alcohol Use History: Occasional Past Drug Use History: None Reported - Past Family History Mother Family Medical History: Cancer, Rheumatoid Arthritis (RA) Additional Family Medical History / Comment(s): Mother had cervical cancer. She at the age of 60 r/t complications from rheumatoid arthritis. Father Family Medical History: No Reported History Additional Family Medical History / Comment(s): Father is very healthy and is 89yrs old. Medications and Allergies Home Medications Medication Instructions Recorded Confirmed Type Albuterol Inhaler [Ventolin Hfa 2 puff INHALATION RT-Q6H PRN 11/03/16 06/29/23 History Inhaler] Montelukast Sodium [Singulair] 10 mg PO DAILY 11/03/16 06/29/23 History Atorvastatin [Lipitor] 80 mg PO DAILY 02/09/17 06/29/23 History Metoprolol Tartrate 37.5 mg PO DAILY 02/09/17 06/29/23 History Levothyroxine Sodium [Synthroid] 50 mcg PO DAILY 11/07/20 06/29/23 History Apixaban [Eliquis] 5 mg PO BID 06/29/23 06/29/23 History Cyclosporine (Cequa) 0.09% 1 applic BOTH EYES DAILY 06/29/23 06/29/23 History Dropperette Metoprolol Tartrate [Lopressor] 50 mg PO HS 06/29/23 06/29/23 History Allergies Allergy/AdvReac Type Severity Reaction Status Date / Time codeine Allergy Rash/Hives Verified 06/29/23 14:59 Penicillins Allergy Dyspnea, Verified 06/29/23 14:59 rash pentazocine [From Talwin] Allergy Dyspnea Verified 06/29/23 14:59 Sulfa (Sulfonamide Allergy Rash/Hives, Verified 06/29/23 14:59 Antibiotics) Difficulty breathing meperidine [From Demerol] AdvReac Vomiting Verified 06/29/23 14:59 Physical Exam Vitals: Vital Signs Temp Pulse Pulse Resp BP BP Pulse Ox 06/30/23 02:10 97.5 F L 113 H 97/73 94 L 06/29/23 23:16 124 H 99/54 96 06/29/23 21:32 125 H 99/67 96 06/29/23 21:17 105/74 97 06/29/23 20:46 97.6 F 06/29/23 15:34 98 17 118/65 97 06/29/23 14:34 90 L 06/29/23 13:32 98.6 F 106 H 18 88/60 95 Intake and Output 06/29/23 06/29/23 06/30/23 14:59 22:59 06:59 Other: # Voids 1 Weight 59.874 kg 59.874 kg GENERAL EXAM: Alert, 67-year-old white female , comfortable in no apparent dist ress. HEAD: Normocephalic and atraumatic EYES: Normal reaction of pupils, equal size. NOSE: Clear with pink turbinates. THROAT: No erythema or exudates. NECK: No masses, no JVD. CHEST: No chest wall deformity. LUNGS: Equal air entry with no crackles, wheeze, rhonchi or dullness. On room air. SpO2 94%. No conversational dyspnea or accessory muscle use.. CVS: S1 and S2 normal with no audible murmur, irregular rhythm. No extra heart sounds ABDOMEN: No hepatosplenomegaly, active bowel sounds, no guarding or rigidity. SPINE: No scoliosis or deformity SKIN: No rashes CENTRAL NERVOUS SYSTEM: No focal deficits, tone is normal in all 4 extremities. EXTREMITIES: There is no peripheral edema, clubbing, or cyanosis. Peripheral pulses are intact. Results - Laboratory Findings CBC and BMP: 06/29/23 14:25 06/29/23 14:25 Abnormal lab findings: Abnormal Labs 06/29/23 06/29/23 06/29/23 14:25 14:25 14:25 Plt Count 149 L Lymphocytes # (Manual) 0.52 L Sodium 131 L Chloride 94 L Glucose 107 H Magnesium 1.5 L SARS-CoV-2 (PCR) Detected A - Diagnostic Findings Chest x-ray: image reviewed Assessment and Plan Assessment: Acute COVID-19 infection, chest x-ray shows no acute infiltrates or evidence of COVID-19 pneumonia. The patient has had Covid 19 infection the past and this is her third infection. No prior vaccination. No evidence of any pneumonia. No significant hypoxemia and a pulse ox is 95% on room air oxygen. Atrial fibrillation with rapid ventricular rate, converted into sinus rhythm. The patient is demented and anticoagulation with Eliquis on outpatient basis Acute dyspnea, likely secondary to above, improving Severe dehydration, improving and the patient is currently on IV fluids History of asthma, stable History of nonischemic cardiomyopathy History of AICD implantation Hyperlipidemia Hypertension Hypothyroidism Plan: We'll continue same treatment Continue Decadron Continue hydration Cardiac rhythm is back to sinus The patient is on room air oxygen No evidence of any pneumonia Currently on room air, and not a candidate for Remdesivir. Negative for influenza, RSV. 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 Last Myocardial Infarction Date:: 2016 History of Any Multi-Drug Resistant Organisms: None Reported Past Surgical History: Ablation, Section, Heart Catheterization, Hysterectomy, Pacemaker, Tonsillectomy Additional Past Surgical History / Comment(s): 11/03/16 cardiac cath, x 1, R mastoidectomy. 01/24/18-EPS pt stated 'they were'nt able to do an ablation "but ihad pacemaker/AIC inplanted Past Anesthesia/Blood Transfusion Reactions: Motion Sickness, Postoperative Nausea & Vomiting (PONV) Additional Past Anesthesia/Blood Transfusion Reaction / Comment(s): Slow to wake after anesthesia. clausterphobia Type of Cardiac Device: Permanent Pacemaker, AICD Device Placement Date:: 01/24/18 Past Psychological History: Anxiety Additional Psychological History / Comment(s): Pt resides with her spouse. They have 1 dog. She works for [employer] at the [employer] but is currently in cardiac rehab and off work. She is independent. Smoking Status: Never smoker Past Alcohol Use History: Occasional Past Drug Use History: None Reported - Past Family History Mother Family Medical History: Cancer, Rheumatoid Arthritis (RA) Additional Family Medical History / Comment(s): Mother had cervical cancer. She at the age of 60 r/t complications from rheumatoid arthritis. Father Family Medical History: No Reported History Additional Family Medical History / Comment(s): Father is very healthy and is 89yrs old. Medications and Allergies Home Medications Medication Instructions Recorded Confirmed Type Albuterol Inhaler [Ventolin Hfa 2 puff INHALATION RT-Q6H PRN 11/03/16 06/29/23 History Inhaler] Montelukast Sodium [Singulair] 10 mg PO DAILY 11/03/16 06/29/23 History Atorvastatin [Lipitor] 80 mg PO DAILY 02/09/17 06/29/23 History Metoprolol Tartrate 37.5 mg PO DAILY 02/09/17 06/29/23 History Levothyroxine Sodium [Synthroid] 50 mcg PO DAILY 11/07/20 06/29/23 History Apixaban [Eliquis] 5 mg PO BID 06/29/23 06/29/23 History Cyclosporine (Cequa) 0.09% 1 applic BOTH EYES DAILY 06/29/23 06/29/23 History Dropperette Metoprolol Tartrate [Lopressor] 50 mg PO HS 06/29/23 06/29/23 History Allergies Allergy/AdvReac Type Severity Reaction Status Date / Time codeine Allergy Rash/Hives Verified 06/29/23 14:59 Penicillins Allergy Dyspnea, Verified 06/29/23 14:59 rash pentazocine [From Talwin] Allergy Dyspnea Verified 06/29/23 14:59 Sulfa (Sulfonamide Allergy Rash/Hives, Verified 06/29/23 14:59 Antibiotics) Difficulty breathing meperidine [From Demerol] AdvReac Vomiting Verified 06/29/23 14:59 Physical Exam Vitals: Vital Signs Temp Pulse Pulse Resp BP BP Pulse Ox 06/30/23 10:57 70 18 117/67 97 06/30/23 09:09 97.5 F L 66 16 120/69 97 06/30/23 02:10 97.5 F L 113 H 97/73 94 L 06/29/23 23:16 124 H 99/54 96 06/29/23 21:32 125 H 99/67 96 06/29/23 21:17 105/74 97 06/29/23 20:46 97.6 F 06/29/23 15:34 98 17 118/65 97 06/29/23 14:34 90 L 06/29/23 13:32 98.6 F 106 H 18 88/60 95 Intake and Output 06/29/23 06/30/23 06/30/23 22:59 06:59 14:59 Intake Total 25.167 Balance 25.167 Intake: Intake, IV Titration 25.167 Amount Diltiazem 125 mg In 25.167 Sodium Chloride 0.9% 100 ml @ 10 MG/HR 10 mls/hr IV .[id number] [facility] Rx#: [id number] Other: # Voids 1 Weight 59.874 kg Results - Laboratory Findings CBC and BMP: 06/29/23 14:25 06/29/23 14:25 Abnormal lab findings: Abnormal Labs 06/29/23 06/29/23 06/29/23 14:25 14:25 14:25 Plt Count 149 L Lymphocytes # (Manual) 0.52 L Sodium 131 L Chloride 94 L Glucose 107 H Magnesium 1.5 L SARS-CoV-2 (PCR) Detected A
[2023-06-30 11:12] LABS: AST 28 U/L (14-36); African American GFR (CKD) >90 (>60 ml/min/1.73 sqM); Albumin 3.2 g/dL (3.5-5.0); Albumin/Globulin Ratio 1.2; Alkaline Phosphatase 68 U/L (38-126); Anion Gap 13 mmol/L; Blood Urea Nitrogen 18 mg/dL (7-17); Calcium 7.8 mg/dL (8.4-10.2); Carbon Dioxide 19 mmol/L (22-30); Chloride 101 mmol/L (98-107); Globulin 2.6 g/dL; Glucose 202 mg/dL (74-99); LDH 182 U/L (120-246); Magnesium 1.8 mg/dL (1.6-2.3); Non-African American GFR(CKD) >90 (>60 ml/min/1.73 sqM); Potassium 3.3 mmol/L (3.5-5.1); Sodium 133 mmol/L (137-145); Total Bilirubin 0.7 mg/dL (0.2-1.3); Total Protein 5.8 g/dL (6.3-8.2)
[2023-06-30 11:13] LABS: ALT 38 U/L (4-34)
[2023-06-30 11:16] LABS: NT-Pro-B-Type Natriuretic Pept 4260 pg/mL
[2023-06-30 11:25] LABS: Partial Thromboplastin Time 29.6 sec (22.0-30.0); Prothrombin Time 10.7 sec (10.0-12.5)
[2023-06-30 12:06] LABS: C Reactive Protein 23.9 mg/dL (<1.0)
[2023-06-30] MEDS: ACETAMINOPHEN TAB 325 MG TAB PO PRN ×2 (13:36→22:34)
--- NOTE | 2023-06-30 13:42 | P.HPIM ---
History of Present Illness H&P Date: 06/30/23 Chief Complaint: COVID + and afib with RVR Renée is a 67 y/o female with h/o nonischemic cardiomyopathy, V. tach, AICD implantation, paroxysmal atrial fibrillation, hyperlipidemia, hypertension, and asthma, . She has not been vaccinated for COVID-19. She's been having a sore throat, earache, cough, chest pain, fever/chills, and worsening shortness of breath since Wednesday. She hs had covid before and due to her sob and symptoms came to the ER where she tested POS. OVernight she had Afib with RVR needing Cardizem drip. This am she is overall improved. Off cardizem drip. Covid protocol has already been ordered for her. Review of Systems All systems: negative Past Medical History Past Medical History: Atrial Fibrillation, Asthma, Coronary Artery Disease (CAD), Hyperlipidemia, Hypertension, Myocardial Infarction (AL), Pneumonia Additional Past Medical History / Comment(s): Spring 2016 pneumonia/pleurisy, 11/03/16 stress induced cardiomyopathy and pt states has been told she had a AL at that time-states EF has improved from 18% to 40% and is attending cardiac rehab, vertigo and balance issues at times. Last Myocardial Infarction Date:: 2016 History of Any Multi-Drug Resistant Organisms: None Reported Past Surgical History: Ablation, Section, Heart Catheterization, Hysterectomy, Pacemaker, Tonsillectomy Additional Past Surgical History / Comment(s): 11/03/16 cardiac cath, x 1, R mastoidectomy. 01/24/18-EPS pt stated 'they were'nt able to do an ablation "but ihad pacemaker/AIC inplanted Past Anesthesia/Blood Transfusion Reactions: Motion Sickness, Postoperative Nausea & Vomiting (PONV) Additional Past Anesthesia/Blood Transfusion Reaction / Comment(s): Slow to wake after anesthesia. clausterphobia Type of Cardiac Device: Permanent Pacemaker, AICD Device Placement Date:: 01/24/18 Past Psychological History: Anxiety Additional Psychological History / Comment(s): Pt resides with her spouse. They have 1 dog. She works for [employer] at the [employer] but is currently in cardiac rehab and off work. She is independent. Smoking Status: Never smoker Past Alcohol Use History: Occasional Past Drug Use History: None Reported - Past Family History Mother Family Medical History: Cancer, Rheumatoid Arthritis (RA) Additional Family Medical History / Comment(s): Mother had cervical cancer. She at the age of 60 r/t complications from rheumatoid arthritis. Father Family Medical History: No Reported History Additional Family Medical History / Comment(s): Father is very healthy and is 89yrs old. Medications and Allergies Home Medications Medication Instructions Recorded Confirmed Type Albuterol Inhaler [Ventolin Hfa 2 puff INHALATION RT-Q6H PRN 11/03/16 06/29/23 History Inhaler] Montelukast Sodium [Singulair] 10 mg PO DAILY 11/03/16 06/29/23 History Atorvastatin [Lipitor] 80 mg PO DAILY 02/09/17 06/29/23 History Metoprolol Tartrate 37.5 mg PO DAILY 02/09/17 06/29/23 History Levothyroxine Sodium [Synthroid] 50 mcg PO DAILY 11/07/20 06/29/23 History Apixaban [Eliquis] 5 mg PO BID 06/29/23 06/29/23 History Cyclosporine (Cequa) 0.09% 1 applic BOTH EYES DAILY 06/29/23 06/29/23 History Dropperette Metoprolol Tartrate [Lopressor] 50 mg PO HS 06/29/23 06/29/23 History Allergies Allergy/AdvReac Type Severity Reaction Status Date / Time codeine Allergy Rash/Hives Verified 06/29/23 14:59 Penicillins Allergy Dyspnea, Verified 06/29/23 14:59 rash pentazocine [From Talwin] Allergy Dyspnea Verified 06/29/23 14:59 Sulfa (Sulfonamide Allergy Rash/Hives, Verified 06/29/23 14:59 Antibiotics) Difficulty breathing meperidine [From Demerol] AdvReac Vomiting Verified 06/29/23 14:59 Physical Exam Vitals: Vital Signs Temp Pulse Pulse Resp BP BP Pulse Ox 06/30/23 13:27 98.2 F 68 18 109/64 96 06/30/23 10:57 70 18 117/67 97 06/30/23 09:09 97.5 F L 66 16 120/69 97 06/30/23 02:10 97.5 F L 113 H 97/73 94 L 06/29/23 23:16 124 H 99/54 96 06/29/23 21:32 125 H 99/67 96 06/29/23 21:17 105/74 97 06/29/23 20:46 97.6 F 06/29/23 15:34 98 17 118/65 97 06/29/23 14:34 90 L Intake and Output 06/29/23 06/30/23 06/30/23 22:59 06:59 14:59 Intake Total 25.167 Balance 25.167 Intake: Intake, IV Titration 25.167 Amount Diltiazem 125 mg In 25.167 Sodium Chloride 0.9% 100 ml @ 10 MG/HR 10 mls/hr IV .[id number] [facility] Rx#: [id number] Other: # Voids 1 Weight 59.874 kg - Constitutional General appearance: average body habitus - EENT Eyes: EOMI, PERRLA - Neck Neck: no lymphadenopathy, no thyromegaly Thyroid: bilateral: normal size - Respiratory Respiratory: bilateral: CTA, negative: rhonchi, wheezing - Cardiovascular Rhythm: regular Heart sounds: normal: S1, S2 Abnormal Heart Sounds: no systolic murmur - Gastrointestinal General gastrointestinal: no hepatomegaly, normal bowel sounds, no splenomegaly - Neurologic Neurologic: CNII-XII intact - Psychiatric Psychiatric: A&O x's 3, appropriate affect Results CBC & Chem 7: 06/29/23 14:25 06/30/23 10:12 Labs: Abnormal Lab Results - Last 24 Hours (Table) 06/29/23 06/29/23 06/29/23 Range/Units 14:25 14:25 14:25 Plt Count 149 L (150-450) k/uL Lymphocytes # (Manual) 0.52 L (1.0-4.8) k/uL Fibrinogen (200-500) mg/dL Sodium 131 L (137-145) mmol/L Potassium (3.5-5.1) mmol/L Chloride 94 L (98-107) mmol/L Carbon Dioxide (22-30) mmol/L BUN (7-17) mg/dL Glucose 107 H (74-99) mg/dL Calcium (8.4-10.2) mg/dL Magnesium 1.5 L (1.6-2.3) mg/dL ALT (4-34) U/L Troponin I (0.000-0.034) ng/mL C-Reactive Protein (<1.0) mg/dL Total Protein (6.3-8.2) g/dL Albumin (3.5-5.0) g/dL SARS-CoV-2 (PCR) Detected A (Not Detectd) 06/30/23 06/30/23 06/30/23 Range/Units 10:12 10:12 10:12 Plt Count (150-450) k/uL Lymphocytes # (Manual) (1.0-4.8) k/uL Fibrinogen 639 H (200-500) mg/dL Sodium 133 L (137-145) mmol/L Potassium 3.3 L (3.5-5.1) mmol/L Chloride (98-107) mmol/L Carbon Dioxide 19 L (22-30) mmol/L BUN 18 H (7-17) mg/dL Glucose 202 H (74-99) mg/dL Calcium 7.8 L (8.4-10.2) mg/dL Magnesium (1.6-2.3) mg/dL ALT 38 H (4-34) U/L Troponin I 0.091 H* (0.000-0.034) ng/mL C-Reactive Protein 23.9 H (<1.0) mg/dL Total Protein 5.8 L (6.3-8.2) g/dL Albumin 3.2 L (3.5-5.0) g/dL SARS-CoV-2 (PCR) (Not Detectd) Chest x-ray: report reviewed Thrombosis Risk Factor Assmnt - DVT/VTE Prophylaxis DVT/VTE Prophylaxis: Pharmacologic Prophylaxis ordered (continue eliquis) - Choose All That Apply Each Risk Factor Represents 2 Points: Age 61-74 years Thrombosis Risk Factor Assessment Total Risk Factor Score: 2 Thrombosis Risk Factor Assessment Level: Low Risk Assessment and Plan (1) Atrial fibrillation with RVR Current Visit: Yes Status: Acute Code(s): I48.91 - UNSPECIFIED ATRIAL FIBRILLATION SNOMED Code(s): 251236810100959 (2) H/O ventricular tachycardia Current Visit: Yes Status: Acute Code(s): Z86.79 - PERSONAL HISTORY OF OTHER DISEASES OF THE CIRCULATORY SYSTEM SNOMED Code(s): 059974222099926 (3) AICD (automatic cardioverter/defibrillator) present Current Visit: Yes Status: Acute Code(s): Z95.810 - PRESENCE OF AUTOMATIC (IMPLANTABLE) CARDIAC DEFIBRILLATOR SNOMED Code(s): 790274453 (4) Asthma Current Visit: Yes Status: Acute Code(s): J45.909 - UNSPECIFIED ASTHMA, UNCOMPLICATED SNOMED Code(s): 843440032 (5) Essential (primary) hypertension Current Visit: Yes Status: Acute Code(s): I10 - ESSENTIAL (PRIMARY) HYPERTENSION SNOMED Code(s): 00227314 (6) Mixed hyperlipidemia Current Visit: Yes Status: Acute Code(s): E78.2 - MIXED HYPERLIPIDEMIA SNOMED Code(s): 148012062 (7) halfway current use of anticoagulant Current Visit: Yes Status: Acute Code(s): Z79.01 - SHELTER (CURRENT) USE OF ANTICOAGULANTS SNOMED Code(s): 297575504 (8) COVID-19 Current Visit: Yes Status: Acute Code(s): U07.1 - COVID-19 SNOMED Code(s): 610858346 (9) Dehydration Current Visit: Yes Status: Acute Code(s): E86.0 - DEHYDRATION SNOMED C ode(s): 65969250 (10) Hypoxia Current Visit: Yes Status: Acute Code(s): R09.02 - HYPOXEMIA SNOMED Code(s): 086944222 (11) Weakness Current Visit: Yes Status: Acute Code(s): R53.1 - WEAKNESS SNOMED Code(s): 33526117 Plan: covid protocol in place Pulmonology consult for hypoxia , cardiology consult for afib with RVR, waiting on transfer to floor from ER repeat labs per protocol, will reevaluate in 24 hours
[2023-06-30] MEDS: SODIUM CHLORIDE 0.9% 1,000 ML IV SCH ×2 (15:06→18:31)
[2023-06-30 15:09] LABS: HCT 36.2 % (37.2-46.3); MCH 33.4 pg (27.0-32.0); MCHC 33.1 g/dL (32.0-37.0); MCV 100.8 FL (80.0-97.0); Mean Platelet Volume 9.1 FL (9.5-12.2); NRBC Per 100 WBC 0 X 10*3/uL (0.00-0.01); Platelet Count 126 X 10*3/uL (140-440); RBC 3.59 X 10*6/uL (4.10-5.20); RDW 13.6 % (11.5-14.5); WBC 9.34 X 10*3/uL (4.50-10.00)
[2023-06-30 15:52] LABS: Basophils # (A) 0.02 X 10*3/uL (0.00-0.10); Basophils % (A) 0.2 %; Eosinophils # (A) 0 X 10*3/uL (0.04-0.35); Eosinophils % (A) 0 %; Lymphocytes # (A) 0.28 X 10*3/uL (0.90-5.00); Monocytes # (A) 0.17 X 10*3/uL (0.20-1.00); Monocytes % (A) 1.8 %; Neutrophils # (A) 8.82 X 10*3/uL (1.80-7.70); Neutrophils % (A) 94.5 %; RBC Morphology Normal (Normal)
[2023-06-30] MEDS: ONDANSETRON 4 MG/2 ML VIAL IVP PRN (18:32)
[2023-06-30] MEDS: METOPROLOL TARTRATE 50 MG TAB PO SCH (20:22)
[2023-06-30] MEDS: BENZOCAINE/MENTHOL LOZENG 1 EACH LOZENGE MUCOUS MEM PRN (22:35)
[2023-07-01] MEDS: SODIUM CHLORIDE 0.9% 1,000 ML IV SCH ×4 (00:01→20:40)
[2023-07-01] MEDS: LEVOTHYROXINE 50 MCG TAB PO SCH (05:58)
[2023-07-01 07:50] LABS: ALT 18 U/L (4-34); AST 23 U/L (14-36); African American GFR (CKD) >90 (>60 ml/min/1.73 sqM); Albumin 2.8 g/dL (3.5-5.0); Alkaline Phosphatase 68 U/L (38-126); Anion Gap 8 mmol/L; Blood Urea Nitrogen 15 mg/dL (7-17); Calcium 7.7 mg/dL (8.4-10.2); Carbon Dioxide 20 mmol/L (22-30); Chloride 108 mmol/L (98-107); Glucose 139 mg/dL (74-99); LDH 172 U/L (120-246); Magnesium 2.1 mg/dL (1.6-2.3); Non-African American GFR(CKD) >90 (>60 ml/min/1.73 sqM); Sodium 136 mmol/L (137-145); Total Bilirubin 0.4 mg/dL (0.2-1.3); Total Protein 5.1 g/dL (6.3-8.2)
[2023-07-01 07:55] LABS: INR 0.9 (<1.2); Partial Thromboplastin Time 25.7 sec (22.0-30.0); Prothrombin Time 9.9 sec (10.0-12.5)
[2023-07-01 07:57] LABS: NT-Pro-B-Type Natriuretic Pept 2970 pg/mL
[2023-07-01 07:59] LABS: Basophils % (A) 0 %; Eosinophils % (A) 0 %; HCT 33.1 % (34.0-46.0); HGB 11.5 gm/dL (11.4-16.0); Lymphocytes # (A) 0.4 k/uL (1.0-4.8); Lymphocytes % (A) 6 %; MCH 34.9 pg (25.0-35.0); MCHC 34.6 g/dL (31.0-37.0); MCV 100.9 fL (80.0-100.0); Mean Platelet Volume 7.6; Monocytes # (A) 0.2 k/uL (0-1.0); Monocytes % (A) 3 %; Neutrophils # (A) 6.2 k/uL (1.3-7.7); Neutrophils % (A) 91 %; Platelet Count 147 k/uL (150-450); RBC 3.28 m/uL (3.80-5.40); RDW 13.1 % (11.5-15.5); WBC 6.8 k/uL (3.8-10.6)
[2023-07-01] MEDS: ALBUTEROL HFA INHALER INHALATION PRN ×3 (08:32→21:55)
[2023-07-01 08:53] LABS: C Reactive Protein 11.8 mg/dL (<1.0)
[2023-07-01] MEDS: APIXABAN 5 MG TAB PO SCH ×2 (09:22→20:40)
[2023-07-01] MEDS: METOPROLOL TARTRATE 25 MG TAB PO SCH (09:22)
[2023-07-01] MEDS: ATORVASTATIN 80 MG TAB PO SCH (09:23)
[2023-07-01] MEDS: DEXAMETHASONE SOD PHOSPHATE 10 MG/ML 1 ML VIAL IV SCH (09:23)
[2023-07-01] MEDS: ONDANSETRON 4 MG/2 ML VIAL IVP PRN (09:23)
[2023-07-01] MEDS: MONTELUKAST 10 MG TAB PO SCH (09:23)
[2023-07-01] MEDS: ACETAMINOPHEN TAB 325 MG TAB PO PRN ×2 (09:26→16:36)
--- NOTE | 2023-07-01 11:17 | P.PN ---
Richard Chinchilla is a 67 y/o female with h/o nonischemic cardiomyopathy, V. tach, AICD implantation, paroxysmal atrial fibrillation, hyperlipidemia, hypertension, and asthma, . She has not been vaccinated for COVID-19. She's been having a sore throat, earache, cough, chest pain, fever/chills, and worsening shortness of breath since Wednesday. She hs had covid before and due to her sob and symptoms came to the ER where she tested POS. OVernight she had Afib with RVR needing Cardizem drip. This am she is overall improved. Off cardizem drip. Covid protocol has already been ordered for her. 07/01/2023: Patient is reevaluated for COVID-19. Cardiology is following for her A. fib with RVR. She is been in rate-controlled the past 24 hours. Pulm onology is following for her hypoxia. This appears much improved. Laboratory studies are slightly improved. She overall though is feeling worse. She reports headache congestion some upset stomach with mild nausea. All consistent with COVID-19. Objective - Vital Signs Vital signs: Vital Signs Temp 98.3 F 06/30/23 21:03 Pulse 76 07/01/23 08:00 Resp 16 07/01/23 08:00 BP 127/77 07/01/23 08:00 Pulse Ox 97 07/01/23 08:00 FiO2 Intake & Output 06/30/23 07/01/23 07/01/23 18:59 06:59 18:59 Intake Total 25.167 540 Balance 25.167 540 Intake: Intake, IV Titration 25.167 Amount Diltiazem 125 mg In 25.167 Sodium Chloride 0.9% 100 ml @ 10 MG/HR 10 mls/hr IV .[id number] [facility] Rx#: [id number] Oral 540 Other: Voiding Method Toilet # Voids 2 - Exam General: The patient is awake and alert, in mild distress, Neck: The neck is supple, there is no thyromegaly, lymphadenopathy, tenderness or JVD. Cardiovascular: S1S2 is normal, There is a regular rate and rhythm. No murmur, rub or gallop is appreciated. Respiratory: Lungs are clear to auscultation bilaterally, respirations are non-labored, breath sounds are equal. Gastrointestinal: Soft, non-distended, non-tender abdomen without masses or organomegaly noted. There is no rebound or guarding present. Bowel sounds are un remarkable. Musculoskeletal: Normal ROM, no tenderness, There is no pedal edema. There is no calf tenderness or swelling. No cords were appreciated. Neurological: CN II-XII intact, there are no obvious motor or sensory deficits. Coordination appears grossly intact. Speech is normal. Skin: Skin is warm and dry and no rashes or lesions are noted. - Labs CBC & Chem 7: 07/01/23 06:52 07/01/23 06:52 Labs: Abnormal Lab Results - Last 24 Hours (Table) 06/30/23 06/30/23 06/30/23 Range/Units 10:12 10:12 10:12 RBC 3.59 L (4.10-5.20) X 10*6/uL Hct 36.2 L (37.2-46.3) % MCV 100.8 H (80.0-97.0) FL MCH 33.4 H (27.0-32.0) pg Plt Count 126 L (140-440) X 10*3/uL MPV 9.1 L (9.5-12.2) FL Immature Gran # 0.05 H (0.00-0.04) X 10*3/uL Neutrophils # 8.82 H (1.80-7.70) X 10*3/uL Lymphocytes # 0.28 L (0.90-5.00) X 10*3/uL Monocytes # 0.17 L (0.20-1.00) X 10*3/uL Eosinophils # 0 L (0.04-0.35) X 10*3/uL PT (10.0-12.5) sec Fibrinogen 639 H (200-500) mg/dL Sodium 133 L (137-145) mmol/L Potassium 3.3 L (3.5-5.1) mmol/L Chloride (98-107) mmol/L Carbon Dioxide 19 L (22-30) mmol/L BUN 18 H (7-17) mg/dL Glucose 202 H (74-99) mg/dL Calcium 7.8 L (8.4-10.2) mg/dL ALT 38 H (4-34) U/L Troponin I (0.000-0.034) ng/mL C-Reactive Protein 23.9 H (<1.0) mg/dL Total Protein 5.8 L (6.3-8.2) g/dL Albumin 3.2 L (3.5-5.0) g/dL 06/30/23 07/01/23 07/01/23 Range/Units 10:12 06:52 06:52 RBC 3.28 L (4.10-5.20) X 10*6/uL Hct 33.1 L (37.2-46.3) % MCV 100.9 H (80.0-97.0) FL MCH (27.0-32.0) pg Plt Count 147 L (140-440) X 10*3/uL MPV (9.5-12.2) FL Immature Gran # (0.00-0.04) X 10*3/uL Neutrophils # (1.80-7.70) X 10*3/uL Lymphocytes # 0.4 L (0.90-5.00) X 10*3/uL Monocytes # (0.20-1.00) X 10*3/uL Eosinophils # (0.04-0.35) X 10*3/uL PT 9.9 L (10.0-12.5) sec Fibrinogen 575 H (200-500) mg/dL Sodium (137-145) mmol/L Potassium (3.5-5.1) mmol/L Chloride (98-107) mmol/L Carbon Dioxide (22-30) mmol/L BUN (7-17) mg/dL Glucose (74-99) mg/dL Calcium (8.4-10.2) mg/dL ALT (4-34) U/L Troponin I 0.091 H* (0.000-0.034) ng/mL C-Reactive Protein (<1.0) mg/dL Total Protein (6.3-8.2) g/dL Albumin (3.5-5.0) g/dL 07/01/23 07/01/23 Range/Units 06:52 06:52 RBC (4.10-5.20) X 10*6/uL Hct (37.2-46.3) % MCV (80.0-97.0) FL MCH (27.0-32.0) pg Plt Count (140-440) X 10*3/uL MPV (9.5-12.2) FL Immature Gran # (0.00-0.04) X 10*3/uL Neutrophils # (1.80-7.70) X 10*3/uL Lymphocytes # (0.90-5.00) X 10*3/uL Monocytes # (0.20-1.00) X 10*3/uL Eosinophils # (0.04-0.35) X 10*3/uL PT (10.0-12.5) sec Fibrinogen (200-500) mg/dL Sodium 136 L (137-145) mmol/L Potassium (3.5-5.1) mmol/L Chloride 108 H (98-107) mmol/L Carbon Dioxide 20 L (22-30) mmol/L BUN (7-17) mg/dL Glucose 139 H (74-99) mg/dL Calcium 7.7 L (8.4-10.2) mg/dL ALT (4-34) U/L Troponin I 0.052 H* (0.000-0.034) ng/mL C-Reactive Protein 11.8 H (<1.0) mg/dL Total Protein 5.1 L (6.3-8.2) g/dL Albumin 2.8 L (3.5-5.0) g/dL Assessment and Plan (1) COVID-19 Current Visit: Yes Status: Acute Code(s): U07.1 - COVID-19 SNOMED Code(s): 993997639 (2) Atrial fibrillation with RVR Current Visit: Yes Status: Acute Code(s): I48.91 - UNSPECIFIED ATRIAL FIBRILLATION SNOMED Code(s): 313123959552756 (3) H/O ventricular tachycardia Current Visit: Yes Status: Acute Code(s): Z86.79 - PERSONAL HISTORY OF OTHER DISEASES OF THE CIRCULATORY SYSTEM SNOMED Code(s): 536331671630669 (4) AICD (automatic cardioverter/defibrillator) present Current Visit: Yes Status: Acute Code(s): Z95.810 - PRESENCE OF AUTOMATIC (IMPLANTABLE) CARDIAC DEFIBRILLATOR SNOMED Code(s): 699792402 (5) Asthma Current Visit: Yes Status: Acute Code(s): J45.909 - UNSPECIFIED ASTHMA, UNCOMPLICATED SNOMED Code(s): 434890315 (6) Essential (primary) hypertension Current Visit: Yes Status: Acute Code(s): I10 - ESSENTIAL (PRIMARY) HYPERTENSION SNOMED Code(s): 12690113 (7) Mixed hyperlipidemia Current Visit: Yes Status: Acute Code(s): E78.2 - MIXED HYPERLIPIDEMIA SNOMED Code(s): 797384032 (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 Wait on further recommendations from critical care/pulmonology and cardiology. She'll continue her current medications. Repeat labs in a.m. per protocol. She will be reevaluated in the next 24 hours.
--- NOTE | 2023-07-01 11:53 | P.PN ---
Subjective HISTORY OF PRESENT ILLNESS: Patient examined this morning at the bedside. Patient currently denies chest pain or pressure. She reports shortness of breath and frequent coughing. She also reports that she is nauseated this morning. She remains in sinus mechanism. 2-D echo is currently pending. PHYSICAL EXAM: VITAL SIGNS: Reviewed. GENERAL: Well-developed in no acute distress. NECK: Supple. No JVD or thyromegaly LUNGS: Respirations even and unlabored. Lungs essentially clear to auscultation bilaterally. HEART: Regular rate and rhythm. S1 and S2 heard. Systolic murmur noted. EXTREMITIES: Normal range of motion. No clubbing or cyanosis. Peripheral pulses intact. No lower extremity edema ASSESSMENT: Covid 19 Paroxysmal atrial fibrillation with RVR, currently maintaining sinus mechanism History of nonischemic cardiomyopathy with previous AICD implantation COPD PLAN: Treatment of Covid 19 per primary medicine Continue current cardiac medications Continue telemetry monitoring 2-D echo has been ordered. Await results Further recommendations pending patient's course Nurse practitioner note has been reviewed by physician. Signing provider agrees with the documented findings, assessment, and plan of care. Objective - Vital Signs Vital signs: Vital Signs Temp 98.3 F 06/30/23 21:03 Pulse 76 07/01/23 08:00 Resp 16 07/01/23 08:00 BP 127/77 07/01/23 08:00 Pulse Ox 97 07/01/23 08:00 FiO2 Intake & Output 06/30/23 07/01/23 07/01/23 18:59 06:59 18:59 Intake Total 25.167 540 Balance 25.167 540 Intake: Intake, IV Titration 25.167 Amount Diltiazem 125 mg In 25.167 Sodium Chloride 0.9% 100 ml @ 10 MG/HR 10 mls/hr IV .[id number] [facility] Rx#: [id number] Oral 540 Other: Voiding Method Toilet Toilet # Voids 2 - Labs CBC & Chem 7: 07/01/23 06:52 07/01/23 06:52 Labs: Abnormal Lab Results - Last 24 Hours (Table) 06/30/23 06/30/23 07/01/23 Range/Units 10:12 10:12 06:52 RBC 3.59 L 3.28 L (4.10-5.20) X 10*6/uL Hct 36.2 L 33.1 L (37.2-46.3) % MCV 100.8 H 100.9 H (80.0-97.0) FL MCH 33.4 H (27.0-32.0) pg Plt Count 126 L 147 L (140-440) X 10*3/uL MPV 9.1 L (9.5-12.2) FL Immature Gran # 0.05 H (0.00-0.04) X 10*3/uL Neutrophils # 8.82 H (1.80-7.70) X 10*3/uL Lymphocytes # 0.28 L 0.4 L (0.90-5.00) X 10*3/uL Monocytes # 0.17 L (0.20-1.00) X 10*3/uL Eosinophils # 0 L (0.04-0.35) X 10*3/uL PT (10.0-12.5) sec Fibrinogen (200-500) mg/dL Sodium (137-145) mmol/L Chloride (98-107) mmol/L Carbon Dioxide (22-30) mmol/L Glucose (74-99) mg/dL Calcium (8.4-10.2) mg/dL Troponin I (0.000-0.034) ng/mL C-Reactive Protein 23.9 H (<1.0) mg/dL Total Protein (6.3-8.2) g/dL Albumin (3.5-5.0) g/dL 07/01/23 07/01/23 07/01/23 Range/Units 06:52 06:52 06:52 RBC (4.10-5.20) X 10*6/uL Hct (37.2-46.3) % MCV (80.0-97.0) FL MCH (27.0-32.0) pg Plt Count (140-440) X 10*3/uL MPV (9.5-12.2) FL Immature Gran # (0.00-0.04) X 10*3/uL Neutrophils # (1.80-7.70) X 10*3/uL Lymphocytes # (0.90-5.00) X 10*3/uL Monocytes # (0.20-1.00) X 10*3/uL Eosinophils # (0.04-0.35) X 10*3/uL PT 9.9 L (10.0-12.5) sec Fibrinogen 575 H (200-500) mg/dL Sodium 136 L (137-145) mmol/L Chloride 108 H (98-107) mmol/L Carbon Dioxide 20 L (22-30) mmol/L Glucose 139 H (74-99) mg/dL Calcium 7.7 L (8.4-10.2) mg/dL Troponin I 0.052 H* (0.000-0.034) ng/mL C-Reactive Protein 11.8 H (<1.0) mg/dL Total Protein 5.1 L (6.3-8.2) g/dL Albumin 2.8 L (3.5-5.0) g/dL
[2023-07-01] MEDS: CYCLOSPORINE 0.09% BOTH EYES SCH (11:56)
--- NOTE | 2023-07-01 12:37 | P.PN ---
Subjective Progress Note Date: 07/01/23 I am seeing this patient in consultation today 06/30/2023 in the emergency room, room 24, after she tested positive for COVID-19. Patient is a 67-year-old white female with past medical history significant for nonischemic cardiomyopathy, V. tach with AICD implantation, paroxysmal atrial fibrillation, hyperlipidemia, hypertension, asthma, among other things. Reportedly follows with Dr. Barker for management of her asthma. She uses an as needed albuterol rescue inhaler. She h as not been vaccinated for COVID-19. Patient states that she's been having a sore throat, earache, cough, chest burning, subjective fever/chills, and worsening shortness of breath since Wednesday. She states that she did attend a family democrat, and her brother's grandkids were sick. When reportedly tested positive for RSV later. On arrival to the emergency room, she did test positive for COVID-19. She was orignally requiring low flow oxygen. Chest x-ray did not show any acute infiltrates or evidence of COVID-19 pneumonia. Patient is currently sitting up in bed, on room air, in no acute distress. SpO2 94%. She's been started on Decadron. Heart rhythm is currently atrial fibrillation with rapid ventricular rate of 100-140 bpm. States that she missed several doses of metoprolol because of some nausea and vomiting, which is now subsided. Cardizem is to be started at 10 mg per hour per cardiology. Blood pressure stable. CBC on arrival was unremarkable. BMP shows sodium 131, potassium 3.9, chloride 94, serum bicarb 25, BUN 15, creatinine 0.93, glucose 107. Troponin 0.026. Normal saline infusing at 75 mL per hour. Vital signs are stable. Patient will be admitted to the cardiac stepdown unit. I saw this patient in emergency department this morning. The patient is already feeling somewhat better. She is on room air oxygen. She continues to have some congested cough. She is complaining of generalized weakness and some GI upset. Note that this is not the patient's first infection. She has been infected in the past and she seems to be getting infected with Covid 19 on a yearly basis. During her last infection, she was treated with Paxlovid. She has not received any previous Covid 19 vaccination. I reviewed the chest x-ray and there is no evidence of any pneumonia at this point in time. She has a defibrillator in place. Her cardiac rhythm is back into normal sinus at this point in time. She remains on Decadron. On today's evaluation of 07/01/2023, the patient is still feeling weak. Somewhat better compared to yesterday. She still being resuscitated with IV fluids. She is on normal saline at the rate of 75 mL an hour. She remains on Decadron. Oxygenation is stable and the patient remains on room air oxygen. She remains on anticoagulation with Eliquis. The rest of the labs are essentially stable and unchanged. The white cell count is at 6.8, hemoglobin 11.9, d-dimer is low at 0.2, LFTs are normal, electrolytes are stable with a serum bicarb of 20, Zacarias is a 50 with a creatinine of 0.6. Objective - Vital Signs Vital signs: Vital Signs Temp 98.3 F 06/30/23 21:03 Pulse 76 07/01/23 08:00 Resp 16 07/01/23 08:00 BP 127/77 07/01/23 08:00 Pulse Ox 97 07/01/23 08:00 FiO2 Intake & Output 06/30/23 07/01/23 07/01/23 18:59 06:59 18:59 Intake Total 25.167 540 Balance 25.167 540 Intake: Intake, IV Titration 25.167 Amount Diltiazem 125 mg In 25.167 Sodium Chloride 0.9% 100 ml @ 10 MG/HR 10 mls/hr IV .[id number] [facility] Rx#: [id number] Oral 540 Other: Voiding Method Toilet # Voids 2 - Exam GENERAL EXAM: Alert, 67-year-old white female , comfortable in no apparent distress. HEAD: Normocephalic and atraumatic EYES: Normal reaction of pupils, equal size. NOSE: Clear with pink turbinates. THROAT: No erythema or exudates. NECK: No masses, no JVD. CHEST: No chest wall deformity. LUNGS: Equal air entry with no crackles, wheeze, rhonchi or dullness. On room air. SpO2 94%. No conversational dyspnea or accessory muscle use.. CVS: S1 and S2 normal with no audible murmur, irregular rhythm. No extra heart sounds ABDOMEN: No hepatosplenomegaly, active bowel sounds, no guarding or rigidity. SPINE: No scoliosis or deformity SKIN: No rashes CENTRAL NERVOUS SYSTEM: No focal deficits, tone is normal in all 4 extremities. EXTREMITIES: There is no peripheral edema, clubbing, or cyanosis. Peripheral pulses are intact. - Labs CBC & Chem 7: 07/01/23 06:52 07/01/23 06:52 Labs: Abnormal Lab Results - Last 24 Hours (Table) 06/30/23 06/30/23 06/30/23 Range/Units 10:12 10:12 10:12 RBC 3.59 L (4.10-5.20) X 10*6/uL Hct 36.2 L (37.2-46.3) % MCV 100.8 H (80.0-97.0) FL MCH 33.4 H (27.0-32.0) pg Plt Count 126 L (140-440) X 10*3/uL MPV 9.1 L (9.5-12.2) FL Immature Gran # 0.05 H (0.00-0.04) X 10*3/uL Neutrophils # 8.82 H (1.80-7.70) X 10*3/uL Lymphocytes # 0.28 L (0.90-5.00) X 10*3/uL Monocytes # 0.17 L (0.20-1.00) X 10*3/uL Eosinophils # 0 L (0.04-0.35) X 10*3/uL PT (10.0-12.5) sec Fibrinogen (200-500) mg/dL Sodium (137-145) mmol/L Chloride (98-107) mmol/L Carbon Dioxide (22-30) mmol/L Glucose (74-99) mg/dL Calcium (8.4-10.2) mg/dL Troponin I 0.091 H* (0.000-0.034) ng/mL C-Reactive Protein 23.9 H (<1.0) mg/dL Total Protein (6.3-8.2) g/dL Albumin (3.5-5.0) g/dL 07/01/23 07/01/23 07/01/23 Range/Units 06:52 06:52 06:52 RBC 3.28 L (4.10-5.20) X 10*6/uL Hct 33.1 L (37.2-46.3) % MCV 100.9 H (80.0-97.0) FL MCH (27.0-32.0) pg Plt Count 147 L (140-440) X 10*3/uL MPV (9.5-12.2) FL Immature Gran # (0.00-0.04) X 10*3/uL Neutrophils # (1.80-7.70) X 10*3/uL Lymphocytes # 0.4 L (0.90-5.00) X 10*3/uL Monocytes # (0.20-1.00) X 10*3/uL Eosinophils # (0.04-0.35) X 10*3/uL PT 9.9 L (10.0-12.5) sec Fibrinogen 575 H (200-500) mg/dL Sodium 136 L (137-145) mmol/L Chloride 108 H (98-107) mmol/L Carbon Dioxide 20 L (22-30) mmol/L Glucose 139 H (74-99) mg/dL Calcium 7.7 L (8.4-10.2) mg/dL Troponin I (0.000-0.034) ng/mL C-Reactive Protein 11.8 H (<1.0) mg/dL Total Protein 5.1 L (6.3-8.2) g/dL Albumin 2.8 L (3.5-5.0) g/dL 07/01/23 Range/Units 06:52 RBC (4.10-5.20) X 10*6/uL Hct (37.2-46.3) % MCV (80.0-97.0) FL MCH (27.0-32.0) pg Plt Count (140-440) X 10*3/uL MPV (9.5-12.2) FL Immature Gran # (0.00-0.04) X 10*3/uL Neutrophils # (1.80-7.70) X 10*3/uL Lymphocytes # (0.90-5.00) X 10*3/uL Monocytes # (0.20-1.00) X 10*3/uL Eosinophils # (0.04-0.35) X 10*3/uL PT (10.0-12.5) sec Fibrinogen (200-500) mg/dL Sodium (137-145) mmol/L Chloride (98-107) mmol/L Carbon Dioxide (22-30) mmol/L Glucose (74-99) mg/dL Calcium (8.4-10.2) mg/dL Troponin I 0.052 H* (0.000-0.034) ng/mL C-Reactive Protein (<1.0) mg/dL Total Protein (6.3-8.2) g/dL Albumin (3.5-5.0) g/dL Assessment and Plan Plan: Acute COVID-19 infection, chest x-ray shows no acute infiltrates or evidence of COVID-19 pneumonia. The patient has had Covid 19 infection the past and this is her third infection. No prior vaccination. No evidence of any pneumonia. No significant hypoxemia and a pulse ox is 95% on room air oxygen. Atrial fibrillation with rapid ventricular rate, converted into sinus rhythm. The patient is demented and anticoagulation with Eliquis on outpatient basis Acute dyspnea, likely secondary to above, improving Severe dehydration, improving and the patient is currently on IV fluids History of asthma, stable History of nonischemic cardiomyopathy History of AICD implantation Hyperlipidemia Hypertension Hypothyroidism Plan: We'll continue same treatment Continue fluids as the patient was quite dehydrated Continue Decadron Increase oral intake Cardiac rhythm is back to sinus Continue anticoagulation The patient is on room air oxygen No evidence of any pneumonia Currently on room air, and not a candidate for Remdesivir. Negative for influenza, RSV. Cardiology manage atrial fibrillation, the patient is currently on Eliquis Echocardiogram was obtained awaiting results. We'll continue to follow
[2023-07-01] MEDS: METOPROLOL TARTRATE 50 MG TAB PO SCH (20:40)
[2023-07-02] MEDS: ACETAMINOPHEN TAB 325 MG TAB PO PRN ×2 (00:03→10:56)
[2023-07-02] MEDS: SODIUM CHLORIDE 0.9% 1,000 ML IV SCH ×4 (01:52→23:50)
[2023-07-02] MEDS: LEVOTHYROXINE 50 MCG TAB PO SCH (05:45)
[2023-07-02] MEDS: ONDANSETRON 4 MG/2 ML VIAL IVP PRN (05:48)
[2023-07-02 08:38] LABS: Basophils % (A) 0 %; Eosinophils % (A) 0 %; HCT 32.6 % (34.0-46.0); HGB 11.1 gm/dL (11.4-16.0); Lymphocytes # (A) 0.4 k/uL (1.0-4.8); Lymphocytes % (A) 9 %; MCH 34.4 pg (25.0-35.0); MCHC 34.2 g/dL (31.0-37.0); MCV 100.7 fL (80.0-100.0); Macrocytosis Slight; Monocytes # (A) 0.2 k/uL (0-1.0); Monocytes % (A) 6 %; Neutrophils # (A) 3.4 k/uL (1.3-7.7); Neutrophils % (A) 83 %; Platelet Count 140 k/uL (150-450); RBC 3.24 m/uL (3.80-5.40); RDW 13.5 % (11.5-15.5); WBC 4.1 k/uL (3.8-10.6)
[2023-07-02 08:45] LABS: ALT 20 U/L (4-34); AST 26 U/L (14-36); African American GFR (CKD) >90 (>60 ml/min/1.73 sqM); Albumin 2.7 g/dL (3.5-5.0); Alkaline Phosphatase 54 U/L (38-126); Anion Gap 8 mmol/L; Blood Urea Nitrogen 12 mg/dL (7-17); Calcium 7.6 mg/dL (8.4-10.2); Carbon Dioxide 19 mmol/L (22-30); Chloride 110 mmol/L (98-107); Glucose 109 mg/dL (74-99); LDH 171 U/L (120-246); Non-African American GFR(CKD) >90 (>60 ml/min/1.73 sqM); Potassium 3.8 mmol/L (3.5-5.1); Sodium 137 mmol/L (137-145); Total Bilirubin 0.3 mg/dL (0.2-1.3); Total Protein 5.1 g/dL (6.3-8.2)
[2023-07-02 08:53] LABS: NT-Pro-B-Type Natriuretic Pept 5670 pg/mL
[2023-07-02] MEDS: ALBUTEROL HFA INHALER INHALATION PRN ×3 (08:55→20:38)
[2023-07-02 09:03] LABS: INR 0.9 (<1.2); Partial Thromboplastin Time 23.9 sec (22.0-30.0); Prothrombin Time 9.8 sec (10.0-12.5)
[2023-07-02] MEDS: ATORVASTATIN 80 MG TAB PO SCH (10:50)
[2023-07-02] MEDS: METOPROLOL TARTRATE 25 MG TAB PO SCH (10:50)
[2023-07-02] MEDS: DEXAMETHASONE SOD PHOSPHATE 10 MG/ML 1 ML VIAL IV SCH (10:51)
[2023-07-02] MEDS: MONTELUKAST 10 MG TAB PO SCH (10:51)
[2023-07-02] MEDS: APIXABAN 5 MG TAB PO SCH ×2 (10:51→22:25)
[2023-07-02] MEDS: lisinopriL 10 MG TAB PO SCH (10:56)
[2023-07-02 11:18] LABS: C Reactive Protein 4.3 mg/dL (<1.0)
[2023-07-02] MEDS: CYCLOSPORINE 0.09% BOTH EYES SCH (11:24)
--- NOTE | 2023-07-02 11:35 | CA ---
Transthoracic Echo Report Name: Renée Jay Age: 67 Gender: F : 1955 Exam Date: 07/01/2023 13:42 Exam Location: [facility] Ht (in): 62 Wt (lb): 132 Ordering Physician: Rayo Mullen MD ([id number]) Attending/Referring Phys: Paz WHITMAN Project Construction Assistant Manager Ben Raymundo Procedure CPT: Indications: a-fib Cardiac Hx: Technical Quality: Fair Contrast 1: Total Dose (mL): Contrast 2: Total Dose (mL): MEASUREMENTS (Male / Female) Normal Values 2D ECHO LV Diastolic Diameter PLAX 4.6 cm 4.2 - 5.9 / 3.9 - 5.3 cm LV Systolic Diameter PLAX 3.3 cm IVS Diastolic Thickness 0.8 cm 0.6 - 1.0 / 0.6 - 0.9 cm LVPW Diastolic Thickness 1.0 cm 0.6 - 1.0 / 0.6 - 0.9 cm LV Relative Wall Thickness 0.4 RV Internal Dim ED PLAX 2.6 cm LVOT Diameter 2.0 cm Aortic Root Diameter 2.6 cm LA Systolic Diameter LX 2.4 cm 3.0 - 4.0 / 2.7 - 3.8 cm LV Diastolic Volume MOD BP 36.8 cm??? 67 - 155 / 56 - 104 cm??? LV Systolic Volume MOD BP 16.3 cm??? 22 - 58 / 19 - 49 cm??? LV Ejection Fraction MOD BP 55.7 % >= 55 % LV Cardiac Index MOD BP 882.5 cm???/min???m??? LV Diastolic Volume MOD 4C 43.7 cm??? LV Systolic Volume MOD 4C 21.0 cm??? LV Ejection Fraction MOD 4C 51.9 % LV Cardiac Index MOD 4C 975.0 cm???/min???m??? LV Diastolic Length 4C 6.3 cm LV Systolic Length 4C 5.4 cm LV Diastolic Volume MOD 2C 30.6 cm??? LV Systolic Volume MOD 2C 12.7 cm??? LV Ejection Fraction MOD 2C 58.6 % LV Cardiac Index MOD 2C 772.5 cm???/min???m??? LV Diastolic Length 2C 6.1 cm LV Systolic Length 2C 5.4 cm LA Volume 49.3 cm??? 18 - 58 / 22 - 52 cm??? LA Volume Index 30.3 cm???/m??? 16 - 28 cm???/m??? DOPPLER AV Peak Velocity 106.9 cm/s AV Peak Gradient 4.6 mmHg LVOT Peak Velocity 87.8 cm/s LVOT Peak Gradient 3.1 mmHg LVOT Velocity Time Integral 22.0 cm LVOT Stroke Volume 66.7 cm??? LVOT Stroke Volume Index 41.6 ml/m??? LVOT Cardiac Index 2868.2 cm???/min???m??? AV Area Cont Eq pk 2.5 cm??? MV Peak Velocity 104.3 cm/s MV Peak Gradient 4.4 mmHg MV Mean Velocity 47.1 cm/s MV Mean Gradient 1.2 mmHg MV Velocity Time Integral 34.7 cm MR Peak Velocity 588.6 cm/s MR Peak Gradient 138.6 mmHg Mitral E Point Velocity 83.1 cm/s Mitral A Point Velocity 86.9 cm/s Mitral E to A Ratio 1.0 MV Deceleration Time 146.5 ms TR Peak Velocity 287.6 cm/s TR Peak Gradient 33.1 mmHg Right Ventricular Systolic Press 38.1 mmHg PV Peak Velocity 73.1 cm/s PV Peak Gradient 2.1 mmHg FINDINGS Left Ventricle Normal LV to and wall thickness. Left ventricular ejection fraction is estimated at 55-60_ %. Right Ventricle Normal right ventricular size. Catheter/pacemaker wire in the right ventricular cavity. Right Atrium Normal right atrial size. Left Atrium Moderate left atrial dilatation. LA volume index= 31ml/m2 Mitral Valve Structurally normal mitral valve. Mild to moderate MR. Aortic Valve Trileaflet aortic valve. No aortic regurgitation. No aortic stenosis. Tricuspid Valve Tricuspid valve not well visualized. Moderate TR. Pulmonic Valve Pulmonic valve not well visualized. No pulmonic regurgitation. Pericardium Normal pericardium. Aorta Normal size aortic root . CONCLUSIONS Left ventricular ejection fraction 55-60% Moderately dilated left atrium Mild to moderate mitral regurgitation Moderate tricuspid regurgitation Previewed by: Dr. Trenton Soni DO (Electronically Signed) Final Date: 02 July 2023 11:34
--- NOTE | 2023-07-02 12:37 | P.PN ---
Subjective HISTORY OF PRESENT ILLNESS: Patient examined this morning at the bedside. Patient currently denies chest pain or pressure. She reports shortness of breath and frequent coughing. She also reports that she is nauseated this morning. She remains in sinus mechanism. 2-D echo is currently pending. 07/02/2023 Patient examined this morning at the bedside. She denies chest pain or pressure. She continues to report shortness of breath and up productive cough. She reports nausea and dry heaves this morning. Telemetry reveals sinus mechanism. Echocardiogram completed revealing ejection fraction 55-60%, mild to moderate MR, and moderate TR. Patient blood pressures have been elevated with a systolic in the 150s to 160s. PHYSICAL EXAM: VITAL SIGNS: Reviewed. GENERAL: Well-developed in no acute distress. NECK: Supple. No JVD or thyromegaly LUNGS: Respirations even and unlabored. Lungs essentially clear to auscultation bilaterally. HEART: Regular rate and rhythm. S1 and S2 heard. Systolic murmur noted. EXTREMITIES: Normal range of motion. No clubbing or cyanosis. Peripheral pulses intact. No lower extremity edema ASSESSMENT: Covid 19 Paroxysmal atrial fibrillation with RVR, currently maintaining sinus mechanism History of nonischemic cardiomyopathy with previous AICD implantation COPD PLAN: Treatment of Covid 19 per primary medicine Continue current cardiac medications Add Lisinopril 10 mg daily for optimal blood pressure control Continue telemetry monitoring We'll sign off. Please reconsult if needed. Nurse practitioner note has been reviewed by physician. Signing provider agrees with the documented findings, assessment, and plan of care. Objective - Vital Signs Vital signs: Vital Signs Temp 98.4 F 07/02/23 08:00 Pulse 59 L 07/02/23 08:00 Resp 18 07/02/23 08:00 BP 160/69 07/02/23 08:00 Pulse Ox 97 07/02/23 08:00 FiO2 Intake & Output 07/01/23 07/02/23 07/02/23 18:59 06:59 18:59 Intake Total 540 Balance 540 Intake: Oral 540 Other: Voiding Method Toilet Toilet Toilet # Voids 1 2 - Labs CBC & Chem 7: 07/02/23 08:20 07/02/23 08:20 Labs: Abnormal Lab Results - Last 24 Hours (Table) 07/02/23 07/02/23 07/02/23 Range/Units 08:20 08:20 08:20 RBC 3.24 L (3.80-5.40) m/uL Hgb 11.1 L (11.4-16.0) gm/dL Hct 32.6 L (34.0-46.0) % MCV 100.7 H (80.0-100.0) fL Plt Count 140 L (150-450) k/uL Lymphocytes # 0.4 L (1.0-4.8) k/uL PT 9.8 L (10.0-12.5) sec Chloride 110 H (98-107) mmol/L Carbon Dioxide 19 L (22-30) mmol/L Glucose 109 H (74-99) mg/dL Calcium 7.6 L (8.4-10.2) mg/dL C-Reactive Protein 4.3 H (<1.0) mg/dL Total Protein 5.1 L (6.3-8.2) g/dL Albumin 2.7 L (3.5-5.0) g/dL
--- NOTE | 2023-07-02 13:57 | P.PN ---
Subjective Progress Note Date: 07/02/23 Principal diagnosis: Cough, chest pain, COVID-19 Patient is awake alert oriented 3 currently denies chest pain or pressure continues to remain short of breath with productive cough mild nausea. Echocardiograms shows only within normal limits blood pressure slightly elevated Objective - Vital Signs Vital signs: Vital Signs Temp 98.4 F 07/02/23 08:00 Pulse 59 L 07/02/23 08:00 Resp 18 07/02/23 08:00 BP 160/69 07/02/23 08:00 Pulse Ox 97 07/02/23 08:00 FiO2 Intake & Output 07/01/23 07/02/23 07/02/23 18:59 06:59 18:59 Intake Total 540 Balance 540 Intake: Oral 540 Other: Voiding Method Toilet Toilet Toilet # Voids 1 2 - Exam General: [Patient awake, alert and oriented times 3. Patient in no acute dist ress.] HEENT: [PERRL. EOMI. No pharyngeal erythema or exudate.] Neck: [No adenopathy.] Cardiac: [Heart regular in rate and rhythm. No S3. No S4. No clicks, rubs. No murmur.] Lungs: [Clear to auscultation bilaterally.] Abdomen: [No mass. No organomegaly. Bowel sounds presnt and normoactive in all 4 quadrants.] Extremes: [No edema no cyanosis no claudication normal pulses] : Normal female genitalia Musculoskeletal: [No joint erythema, edema or tenderness.] Skin: [No rash.] Neurologic: [No lateralizing deficits. CN II - XII grossly intact.] Lymphatic: [No adenopathy.] - Labs CBC & Chem 7: 07/02/23 08:20 07/02/23 08:20 Labs: Abnormal Lab Results - Last 24 Hours (Table) 07/02/23 07/02/23 07/02/23 Range/Units 08:20 08:20 08:20 RBC 3.24 L (3.80-5.40) m/uL Hgb 11.1 L (11.4-16.0) gm/dL Hct 32.6 L (34.0-46.0) % MCV 100.7 H (80.0-100.0) fL Plt Count 140 L (150-450) k/uL Lymphocytes # 0.4 L (1.0-4.8) k/uL PT 9.8 L (10.0-12.5) sec Chloride 110 H (98-107) mmol/L Carbon Dioxide 19 L (22-30) mmol/L Glucose 109 H (74-99) mg/dL Calcium 7.6 L (8.4-10.2) mg/dL C-Reactive Protein 4.3 H (<1.0) mg/dL Total Protein 5.1 L (6.3-8.2) g/dL Albumin 2.7 L (3.5-5.0) g/dL Assessment and Plan (1) AICD (automatic cardioverter/defibrillator) present Current Visit: Yes Status: Acute Code(s): Z95.810 - PRESENCE OF AUTOMATIC (IMPLANTABLE) CARDIAC DEFIBRILLATOR SNOMED Code(s): 488540434 (2) Asthma Current Visit: Yes Status: Acute Code(s): J45.909 - UNSPECIFIED ASTHMA, UNCOMPLICATED SNOMED Code(s): 581110322 (3) Atrial fibrillation with RVR Current Visit: Yes Status: Acute Code(s): I48.91 - UNSPECIFIED ATRIAL FIBRILLATION SNOMED Code(s): 319666925579840 (4) COVID-19 Current Visit: Yes Status: Acute Code(s): U07.1 - COVID-19 SNOMED Code(s): 534125961 (5) Dehydration Current Visit: Yes Status: Acute Code(s): E86.0 - DEHYDRATION SNOMED Code(s): 78123637 (6) Essential (primary) hypertension Current Visit: Yes Status: Acute Code(s): I10 - ESSENTIAL (PRIMARY) HYPERTENSION SNOMED Code(s): 21623889 (7) H/O ventricular tachycardia Current Visit: Yes Status: Acute Code(s): Z86.79 - PERSONAL HISTORY OF OTHER DISEASES OF THE CIRCULATORY SYSTEM SNOMED Code(s): 953490318571059 (8) Hypoxia Current Visit: Yes Status: Acute Code(s): R09.02 - HYPOXEMIA SNOMED Code(s): 034379753 Plan: Aggressive supportive care treatment of Covid 19 Continue current cardiac meds Lisinopril added per recommendation We'll follow closely
[2023-07-02] MEDS: methylPREDNISolone SOD SUCCI 125 MG/2 ML VIAL IV SCH ×3 (14:28→23:50)
[2023-07-02] MEDS: BENZONATATE 100 MG CAP PO PRN ×2 (14:28→22:25)
[2023-07-02] MEDS ORDERED: FUROSEMIDE 10 MG/ML 4 ML VIAL IV STA (16:24)
--- NOTE | 2023-07-02 16:24 | P.PN ---
Subjective Progress Note Date: 07/02/23 I am seeing this patient in consultation today 06/30/2023 in the emergency room, room 24, after she tested positive for COVID-19. Patient is a 67-year-old white female with past medical history significant for nonischemic cardiomyopathy, V. tach with AICD implantation, paroxysmal atrial fibrillation, hyperlipidemia, hypertension, asthma, among other things. Reportedly follows with Dr. Barker for management of her asthma. She uses an as needed albuterol rescue inhaler. She h as not been vaccinated for COVID-19. Patient states that she's been having a sore throat, earache, cough, chest burning, subjective fever/chills, and worsening shortness of breath since Wednesday. She states that she did attend a family republic[employer], and her brother's grandkids were sick. When reportedly tested positive for RSV later. On arrival to the emergency room, she did test positive for COVID-19. She was orignally requiring low flow oxygen. Chest x-ray did not show any acute infiltrates or evidence of COVID-19 pneumonia. Patient is currently sitting up in bed, on room air, in no acute distress. SpO2 94%. She's been started on Decadron. Heart rhythm is currently atrial fibrillation with rapid ventricular rate of 100-140 bpm. States that she missed several doses of metoprolol because of some nausea and vomiting, which is now subsided. Cardizem is to be started at 10 mg per hour per cardiology. Blood pressure stable. CBC on arrival was unremarkable. BMP shows sodium 131, potassium 3.9, chloride 94, serum bicarb 25, BUN 15, creatinine 0.93, glucose 107. Troponin 0.026. Normal saline infusing at 75 mL per hour. Vital signs are stable. Patient will be admitted to the cardiac stepdown unit. I saw this patient in emergency department this morning. The patient is already feeling somewhat better. She is on room air oxygen. She continues to have some congested cough. She is complaining of generalized weakness and some GI upset. Note that this is not the patient's first infection. She has been infected in the past and she seems to be getting infected with Covid 19 on a yearly basis. During her last infection, she was treated with Paxlovid. She has not received any previous Covid 19 vaccination. I reviewed the chest x-ray and there is no evidence of any pneumonia at this point in time. She has a defibrillator in place. Her cardiac rhythm is back into normal sinus at this point in time. She remains on Decadron. On today's evaluation of 07/01/2023, the patient is still feeling weak. Somewhat better compared to yesterday. She still being resuscitated with IV fluids. She is on normal saline at the rate of 75 mL an hour. She remains on Decadron. Oxygenation is stable and the patient remains on room air oxygen. She remains on anticoagulation with Eliquis. The rest of the labs are essentially stable and unchanged. The white cell count is at 6.8, hemoglobin 11.9, d-dimer is low at 0.2, LFTs are normal, electrolytes are stable with a serum bicarb of 20, Zacarias is a 50 with a creatinine of 0.6. On today's evaluation of 07/02/2023, the patient is being seen for a follow-up. Patient is still weak and lethargic and she is complaining of some congested cough. Appetite is poor. Oral intake is quite diminished. She remains on IV fluidsa rate of 75 mL an hour. She was on Decadron and I took the opportunity to switch to IV Solu-Medrol based on an ongoing chest tightness and wheeze. Otherwise, she is on albuterol HFA [id number], she is also on anti- cognition with Eliquis 5 mg by mouth twice a day. The labs from today shows edematous, 4.1, hemoglobin 11.1, INR is at 0.9, serum bicarbs of 19 and a sodium level is at 137, liver function tests are within normal limits, proBNP level is 5670. Echocardiogram was also completed and the patient is a preserved ejection fraction of 55-60%. No significant valvular abnormalities other than some mild to moderate mitral regurgitation. Objective - Vital Signs Vital signs: Vital Signs Temp 98.4 F 07/02/23 08:00 Pulse 59 L 07/02/23 08:00 Resp 18 07/02/23 08:00 BP 160/69 07/02/23 08:00 Pulse Ox 97 07/02/23 08:00 FiO2 Intake & Output 07/01/23 07/02/23 07/02/23 18:59 06:59 18:59 Intake Total 540 Balance 540 Intake: Oral 540 Other: Voiding Method Toilet Toilet Toilet # Voids 1 2 - Exam GENERAL EXAM: Alert, 67-year-old white female , comfortable in no apparent distress. HEAD: Normocephalic and atraumatic EYES: Normal reaction of pupils, equal size. NOSE: Clear with pink turbinates. THROAT: No erythema or exudates. NECK: No masses, no JVD. CHEST: No chest wall deformity. LUNGS: Equal air entry with no crackles, wheeze, rhonchi or dullness. On room air. SpO2 94%. No conversational dyspnea or accessory muscle use.. CVS: S1 and S2 normal with no audible murmur, irregular rhythm. No extra heart sounds ABDOMEN: No hepatosplenomegaly, active bowel sounds, no guarding or rigidity. SPINE: No scoliosis or deformity SKIN: No rashes CENTRAL NERVOUS SYSTEM: No focal deficits, tone is normal in all 4 extremities. EXTREMITIES: There is no peripheral edema, clubbing, or cyanosis. Peripheral pulses are intact. - Labs CBC & Chem 7: 07/02/23 08:20 07/02/23 08:20 Labs: Abnormal Lab Results - Last 24 Hours (Table) 07/02/23 07/02/23 07/02/23 Range/Units 08:20 08:20 08:20 RBC 3.24 L (3.80-5.40) m/uL Hgb 11.1 L (11.4-16.0) gm/dL Hct 32.6 L (34.0-46.0) % MCV 100.7 H (80.0-100.0) fL Plt Count 140 L (150-450) k/uL Lymphocytes # 0.4 L (1.0-4.8) k/uL PT 9.8 L (10.0-12.5) sec Chloride 110 H (98-107) mmol/L Carbon Dioxide 19 L (22-30) mmol/L Glucose 109 H (74-99) mg/dL Calcium 7.6 L (8.4-10.2) mg/dL C-Reactive Protein 4.3 H (<1.0) mg/dL Total Protein 5.1 L (6.3-8.2) g/dL Albumin 2.7 L (3.5-5.0) g/dL Assessment and Plan Plan: Acute COVID-19 infection, chest x-ray shows no acute infiltrates or evidence of COVID-19 pneumonia. The patient has had Covid 19 infection the past and this is her third infection. No prior vaccination. No evidence of any pneumonia. No significant hypoxemia and a pulse ox is 95% on room air oxygen. The patient remains symptomatic with active cough and chest tightness and wheezing. Consider underlying asthma exacerbation related to Covid 19 infection Acute asthma exacerbation Atrial fibrillation with rapid ventricular rate, converted into sinus rhythm. The patient is demented and anticoagulation with Eliquis on outpatient basis, until cardiac exam shows a preserved LV function Acute dyspnea, likely secondary to above, improving Severe dehydration, improving and the patient is currently on IV fluids History of asthma, stable History of nonischemic cardiomyopathy History of AICD implantation Hyperlipidemia Hypertension Hypothyroidism Plan: We'll continue same treatment Continue fluids as the patient was quite dehydrated Continue steroids and switch this patient from Decadron to IV Solu-Medrol Give Lasix 40 mg IV push 1 Increase oral intake Cardiac rhythm is back to sinus Continue anticoagulation The patient is on room air oxygen No evidence of any pneumonia Currently on room air, and not a candidate for Remdesivir. Negative for influenza, RSV. Cardiology manage atrial fibrillation, the patient is currently on Eliquis We'll continue to follow
[2023-07-02] MEDS: METOPROLOL TARTRATE 50 MG TAB PO SCH (22:25)
[2023-07-02] MEDS ORDERED: DILTIAZEM DRIP BOLUS FROM BAG 1 MG SOLN IV ONE (23:25)
[2023-07-02] MEDS ORDERED: DILTIAZEM 125 MG in SODIUM CHLORIDE 0.9% 100 ML IV SCH (23:30)
[2023-07-03 06:29] LABS: Glucose,Whole Blood 127 mg/dL (70-110)
[2023-07-03] MEDS: INSULIN ASPART (NovoLOG) 100 UNIT/ML VIAL SQ SCH ×4 (06:29→23:13)
[2023-07-03] MEDS: SODIUM CHLORIDE 0.9% 1,000 ML IV SCH ×3 (06:29→23:13)
[2023-07-03] MEDS: methylPREDNISolone SOD SUCCI 125 MG/2 ML VIAL IV SCH ×2 (06:29→12:42)
[2023-07-03] MEDS: LEVOTHYROXINE 50 MCG TAB PO SCH (06:29)
[2023-07-03] MEDS: ALBUTEROL HFA INHALER INHALATION PRN ×2 (08:05→20:46)
[2023-07-03] MEDS: ONDANSETRON 4 MG/2 ML VIAL IVP PRN (08:29)
[2023-07-03] MEDS: CYCLOSPORINE 0.09% BOTH EYES SCH (09:24)
[2023-07-03] MEDS: APIXABAN 5 MG TAB PO SCH ×2 (09:30→20:02)
[2023-07-03] MEDS: BENZONATATE 100 MG CAP PO PRN ×2 (09:30→20:02)
[2023-07-03] MEDS: MONTELUKAST 10 MG TAB PO SCH (09:31)
[2023-07-03] MEDS: ATORVASTATIN 80 MG TAB PO SCH (09:31)
[2023-07-03] MEDS: ACETAMINOPHEN TAB 325 MG TAB PO PRN ×2 (09:31→20:02)
[2023-07-03] MEDS: METOPROLOL TARTRATE 25 MG TAB PO SCH (09:31)
[2023-07-03] MEDS: lisinopriL 10 MG TAB PO SCH (09:31)
--- NOTE | 2023-07-03 12:18 | XR ---
EXAMINATION TYPE: XR chest 1V DATE OF EXAM: 07/03/2023 5:35 AM CLINICAL INDICATION:Female, 67 years old with history of COVID 19; [facility] COMPARISON: 06/29/2023 TECHNIQUE: XR chest 1V Portable AP radiograph of the chest.. FINDINGS: Lines/Tubes/Devices: EKG leads overlie the chest. No indwelling lines are seen. Stable single lead left chest AICD. Heart/mediastinum: Heart size is normal. Mediastinum appears normal. Pulmonary vascularity: Not increased, Lungs/Pleura: There is no evidence of significant pleural effusion, focal consolidation, or pneumotho rax. Left costophrenic angle has a minimally blunted appearance. Musculoskeletal: No acute osseous abnormality demonstrated in the limits of the exam. Other findings: None. IMPRESSION: Possible tiny left pleural effusion. Otherwise no acute cardiopulmonary process.
--- NOTE | 2023-07-03 12:33 | P.PN ---
Subjective Progress Note Date: 07/03/23 I am seeing this patient in consultation today 06/30/2023 in the emergency room, room 24, after she tested positive for COVID-19. Patient is a 67-year-old white female with past medical history significant for nonischemic cardiomyopathy, V. tach with AICD implantation, paroxysmal atrial fibrillation, hyperlipidemia, hypertension, asthma, among other things. Reportedly follows with Dr. Barker for management of her asthma. She uses an as needed albuterol rescue inhaler. She h as not been vaccinated for COVID-19. Patient states that she's been having a sore throat, earache, cough, chest burning, subjective fever/chills, and worsening shortness of breath since Wednesday. She states that she did attend a family alliance party, and her brother's grandkids were sick. When reportedly tested positive for RSV later. On arrival to the emergency room, she did test positive for COVID-19. She was orignally requiring low flow oxygen. Chest x-ray did not show any acute infiltrates or evidence of COVID-19 pneumonia. Patient is currently sitting up in bed, on room air, in no acute distress. SpO2 94%. She's been started on Decadron. Heart rhythm is currently atrial fibrillation with rapid ventricular rate of 100-140 bpm. States that she missed several doses of metoprolol because of some nausea and vomiting, which is now subsided. Cardizem is to be started at 10 mg per hour per cardiology. Blood pressure stable. CBC on arrival was unremarkable. BMP shows sodium 131, potassium 3.9, chloride 94, serum bicarb 25, BUN 15, creatinine 0.93, glucose 107. Troponin 0.026. Normal saline infusing at 75 mL per hour. Vital signs are stable. Patient will be admitted to the cardiac stepdown unit. I saw this patient in emergency department this morning. The patient is already feeling somewhat better. She is on room air oxygen. She continues to have some congested cough. She is complaining of generalized weakness and some GI upset. Note that this is not the patient's first infection. She has been infected in the past and she seems to be getting infected with Covid 19 on a yearly basis. During her last infection, she was treated with Paxlovid. She has not received any previous Covid 19 vaccination. I reviewed the chest x-ray and there is no evidence of any pneumonia at this point in time. She has a defibrillator in place. Her cardiac rhythm is back into normal sinus at this point in time. She remains on Decadron. On today's evaluation of 07/01/2023, the patient is still feeling weak. Somewhat better compared to yesterday. She still being resuscitated with IV fluids. She is on normal saline at the rate of 75 mL an hour. She remains on Decadron. Oxygenation is stable and the patient remains on room air oxygen. She remains on anticoagulation with Eliquis. The rest of the labs are essentially stable and unchanged. The white cell count is at 6.8, hemoglobin 11.9, d-dimer is low at 0.2, LFTs are normal, electrolytes are stable with a serum bicarb of 20, Zacarias is a 50 with a creatinine of 0.6. On today's evaluation of 07/02/2023, the patient is being seen for a follow-up. Patient is still weak and lethargic and she is complaining of some congested cough. Appetite is poor. Oral intake is quite diminished. She remains on IV fluidsa rate of 75 mL an hour. She was on Decadron and I took the opportunity to switch to IV Solu-Medrol based on an ongoing chest tightness and wheeze. Otherwise, she is on albuterol HFA [id number], she is also on anti- cognition with Eliquis 5 mg by mouth twice a day. The labs from today shows edematous, 4.1, hemoglobin 11.1, INR is at 0.9, serum bicarbs of 19 and a sodium level is at 137, liver function tests are within normal limits, proBNP level is 5670. Echocardiogram was also completed and the patient is a preserved ejection fraction of 55-60%. No significant valvular abnormalities other than some mild to moderate mitral regurgitation. On today's evaluation of fall, the patient is feeling slightly improved compared to yesterday. No significant nausea or emesis. She remains on IV fluids at 75 mL an hour. She remains on IV Solu-Medrol which is causing some GI upset and I recommended stopping the IV Solu-Medrol and put the patient on Decadron. She remains on 2 L of O2 nasal cannula with a pulse ox of 98%. Rest of the treatment is essentially unchanged. The patient remains on cognition with Eliquis. Follow-up chest x-ray from today shows no evidence of consolidation or airspace disease. The patient has a pacemaker in place. The patient has an echocardiogram that showed a preserved LV function without any valvular abnormalities. Objective - Vital Signs Vital signs: Vital Signs Temp 97.8 F 07/03/23 03:41 Pulse 64 07/03/23 03:41 Resp 16 07/03/23 03:41 BP 142/89 07/03/23 03:41 Pulse Ox 98 07/03/23 03:41 FiO2 Intake & Output 07/02/23 07/03/23 07/03/23 18:59 06:59 18:59 Intake Total 1140 16.333 Balance 1140 16.333 Intake: Intake, IV Titration 600 16.333 Amount Diltiazem 125 mg In 16.333 Sodium Chloride 0.9% 100 ml @ 10 MG/HR 10 mls/hr IV .[id number] [facility] Rx#: [id number] Sodium Chloride 0.9% 1, 600 000 ml @ 75 mls/hr IV . [id number] [facility] Rx#:[id number] Oral 540 Other: Voiding Method Toilet Toilet # Voids 1 - Exam GENERAL EXAM: Alert, 67-year-old white female , comfortable in no apparent distress. HEAD: Normocephalic and atraumatic EYES: Normal reaction of pupils, equal size. NOSE: Clear with pink turbinates. THROAT: No erythema or exudates. NECK: No masses, no JVD. CHEST: No chest wall deformity. LUNGS: Equal air entry with no crackles, wheeze, rhonchi or dullness. On room air. SpO2 94%. No conversational dyspnea or accessory muscle use.. CVS: S1 and S2 normal with no audible murmur, irregular rhythm. No extra heart sounds ABDOMEN: No hepatosplenomegaly, active bowel sounds, no guarding or rigidity. SPINE: No scoliosis or deformity SKIN: No rashes CENTRAL NERVOUS SYSTEM: No focal deficits, tone is normal in all 4 extremities. EXTREMITIES: There is no peripheral edema, clubbing, or cyanosis. Peripheral pulses are intact. - Labs CBC & Chem 7: 07/02/23 08:20 07/02/23 08:20 Labs: Abnormal Lab Results - Last 24 Hours (Table) 07/02/23 07/03/23 Range/Units 08:20 06:28 POC Glucose (mg/dL) 127 H (70-110) mg/dL C-Reactive Protein 4.3 H (<1.0) mg/dL Assessment and Plan Plan: Acute COVID-19 infection, chest x-ray shows no acute infiltrates or evidence of COVID-19 pneumonia. The patient has had Covid 19 infection the past and this is her third infection. No prior vaccination. No evidence of any pneumonia. No significant hypoxemia and a pulse ox is 95% on room air oxygen. The patient remains symptomatic with active cough and chest tightness and wheezing. Consider underlying asthma exacerbation related to Covid 19 infection Acute asthma exacerbation Atrial fibrillation with rapid ventricular rate, converted into sinus rhythm. The patient is demented and anticoagulation with Eliquis on outpatient basis, until cardiac exam shows a preserved LV function Acute dyspnea, likely secondary to above, improving Severe dehydration, improving and the patient is currently on IV fluids History of asthma, stable History of nonischemic cardiomyopathy History of AICD implantation Hyperlipidemia Hypertension Hypothyroidism Plan: We'll continue same treatment Continue fluids as the patient was quite dehydrated Continue steroids will switch the patient back to Decadron Increase oral intake Cardiac rhythm is back to sinus Continue anticoagulation, she is on anticoagulation with Eliquis The patient is on room air oxygen, while on 2 L a pulse ox of 98% No evidence of any pneumonia Currently on room air, and not a candidate for Remdesivir. Negative for influenza, RSV. Cardiology manage atrial fibrillation, the patient is currently on Eliquis We'll continue to follow
[2023-07-03] MEDS: dexAMETHasone 2 MG TAB PO SCH (13:15)
[2023-07-03 13:18] LABS: Glucose,Whole Blood 121 mg/dL (70-110)
[2023-07-03 16:13] LABS: Glucose,Whole Blood 133 mg/dL (70-110)
[2023-07-03] MEDS: METOPROLOL TARTRATE 50 MG TAB PO SCH (20:02)
[2023-07-03] MEDS: BENZOCAINE/MENTHOL LOZENG 1 EACH LOZENGE MUCOUS MEM PRN (20:03)
[2023-07-03 20:25] LABS: Glucose,Whole Blood 187 mg/dL (70-110)
--- NOTE | 2023-07-03 21:08 | P.PN ---
Subjective Progress Note Date: 07/03/23 HISTORY OF PRESENT ILLNESS: Patient examined this morning at the bedside. Patient currently denies chest pain or pressure. She reports shortness of breath and frequent coughing. She also reports that she is nauseated this morning. She remains in sinus mechanism. 2-D echo is currently pending. 07/02/2023 Patient examined this morning at the bedside. She denies chest pain or pressure. She continues to report shortness of breath and up productive cough. She reports nausea and dry heaves this morning. Telemetry reveals sinus mechanism. Echocardiogram completed revealing ejection fraction 55-60%, mild to moderate MR, and moderate TR. Patient blood pressures have been elevated with a systolic in the 150s to 160s. 07/03/2023 Patient was seen and examined at bedside the same. Last night patient had an episode of atrial ablation of the bed. Ventricular response. She then converted back into normal sinus rhythm. This morning she is in normal sinus rhythm PHYSICAL EXAM: VITAL SIGNS: Reviewed. GENERAL: Well-developed in no acute distress. NECK: Supple. No JVD or thyromegaly LUNGS: Respirations even and unlabored. Lungs essentially clear to auscultation bilaterally. HEART: Regular rate and rhythm. S1 and S2 heard. Systolic murmur noted. EXTREMITIES: Normal range of motion. No clubbing or cyanosis. Peripheral pulses intact. No lower extremity edema ASSESSMENT: Covid 19 Paroxysmal atrial fibrillation with RVR, currently maintaining sinus mechanism History of nonischemic cardiomyopathy with previous AICD implantation COPD PLAN: Treatment of Covid 19 per primary medicine Continue current cardiac medications Add Lisinopril 10 mg daily for optimal blood pressure control Continue telemetry monitoring . Objective - Vital Signs Vital signs: Vital Signs Temp 96.7 F L 07/03/23 16:40 Pulse 82 07/03/23 20:05 Resp 16 07/03/23 20:05 BP 118/61 07/03/23 20:00 Pulse Ox 98 07/03/23 20:46 FiO2 21 07/03/23 20:46 Intake & Output 07/03/23 07/03/23 07/04/23 06:59 18:59 06:59 Intake Total 16.333 540 118 Output Total 0 Balance 16.333 540 118 Intake: Intake, IV Titration 16.333 Amount Diltiazem 125 mg In 16.333 Sodium Chloride 0.9% 100 ml @ 10 MG/HR 10 mls/hr IV .[id number] [facility] Rx#: [id number] Oral 540 118 Output: Gastric Drainage 0 Urine 0 Stool 0 Urine/Stool Mix 0 Emesis 0 Oral Regurgitation 0 Other 0 Other: Voiding Method Toilet Toilet Toilet # Voids 1 0 # Bowel Movements 0 - Labs CBC & Chem 7: 07/02/23 08:20 07/02/23 08:20 Labs: Abnormal Lab Results - Last 24 Hours (Table) 07/03/23 07/03/23 07/03/23 Range/Units 06:28 13:16 16:11 POC Glucose (mg/dL) 127 H 121 H 133 H (70-110) mg/dL 07/03/23 Range/Units 20:12 POC Glucose (mg/dL) 187 H (70-110) mg/dL
[2023-07-04] MEDS: SODIUM CHLORIDE 0.9% 1,000 ML IV SCH ×3 (02:31→16:03)
[2023-07-04] MEDS: BENZONATATE 100 MG CAP PO PRN ×2 (04:26→21:22)
[2023-07-04] MEDS: ACETAMINOPHEN TAB 325 MG TAB PO PRN ×2 (04:27→21:23)
[2023-07-04] MEDS: ONDANSETRON 4 MG/2 ML VIAL IVP PRN (04:27)
[2023-07-04 05:59] LABS: Glucose,Whole Blood 124 mg/dL (70-110)
[2023-07-04] MEDS: LEVOTHYROXINE 50 MCG TAB PO SCH (06:01)
[2023-07-04] MEDS: INSULIN ASPART (NovoLOG) 100 UNIT/ML VIAL SQ SCH ×4 (06:05→21:21)
[2023-07-04] MEDS: ALBUTEROL HFA INHALER INHALATION PRN (07:47)
[2023-07-04] MEDS: dexAMETHasone 2 MG TAB PO SCH (08:41)
[2023-07-04] MEDS: APIXABAN 5 MG TAB PO SCH ×2 (08:42→21:22)
[2023-07-04] MEDS: lisinopriL 10 MG TAB PO SCH (08:42)
[2023-07-04] MEDS: MONTELUKAST 10 MG TAB PO SCH (08:42)
[2023-07-04] MEDS: METOPROLOL TARTRATE 50 MG TAB PO SCH ×2 (08:42→21:26)
[2023-07-04] MEDS: ATORVASTATIN 80 MG TAB PO SCH (08:42)
[2023-07-04] MEDS: CYCLOSPORINE 0.09% BOTH EYES SCH (09:03)
[2023-07-04] MEDS ORDERED: DEXTROSE 5% IN WATER 100 ML with AMIODARONE 150 MG IV ONE (09:50)
[2023-07-04] MEDS ORDERED: AMIODARONE 360 MG in DEXTROSE 5% IN WATER 200 ML IV ONE ×2 (10:00)
[2023-07-04 11:59] LABS: Glucose,Whole Blood 101 mg/dL (70-110)
--- NOTE | 2023-07-04 12:51 | P.PN ---
Subjective Progress Note Date: 07/04/23 I am seeing this patient in consultation today 06/30/2023 in the emergency room, room 24, after she tested positive for COVID-19. Patient is a 67-year-old white female with past medical history significant for nonischemic cardiomyopathy, V. tach with AICD implantation, paroxysmal atrial fibrillation, hyperlipidemia, hypertension, asthma, among other things. Reportedly follows with Dr. Barker for management of her asthma. She uses an as needed albuterol rescue inhaler. She h as not been vaccinated for COVID-19. Patient states that she's been having a sore throat, earache, cough, chest burning, subjective fever/chills, and worsening shortness of breath since Wednesday. She states that she did attend a family green party, and her brother's grandkids were sick. When reportedly tested positive for RSV later. On arrival to the emergency room, she did test positive for COVID-19. She was orignally requiring low flow oxygen. Chest x-ray did not show any acute infiltrates or evidence of COVID-19 pneumonia. Patient is currently sitting up in bed, on room air, in no acute distress. SpO2 94%. She's been started on Decadron. Heart rhythm is currently atrial fibrillation with rapid ventricular rate of 100-140 bpm. States that she missed several doses of metoprolol because of some nausea and vomiting, which is now subsided. Cardizem is to be started at 10 mg per hour per cardiology. Blood pressure stable. CBC on arrival was unremarkable. BMP shows sodium 131, potassium 3.9, chloride 94, serum bicarb 25, BUN 15, creatinine 0.93, glucose 107. Troponin 0.026. Normal saline infusing at 75 mL per hour. Vital signs are stable. Patient will be admitted to the cardiac stepdown unit. I saw this patient in emergency department this morning. The patient is already feeling somewhat better. She is on room air oxygen. She continues to have some congested cough. She is complaining of generalized weakness and some GI upset. Note that this is not the patient's first infection. She has been infected in the past and she seems to be getting infected with Covid 19 on a yearly basis. During her last infection, she was treated with Paxlovid. She has not received any previous Covid 19 vaccination. I reviewed the chest x-ray and there is no evidence of any pneumonia at this point in time. She has a defibrillator in place. Her cardiac rhythm is back into normal sinus at this point in time. She remains on Decadron. On today's evaluation of 07/01/2023, the patient is still feeling weak. Somewhat better compared to yesterday. She still being resuscitated with IV fluids. She is on normal saline at the rate of 75 mL an hour. She remains on Decadron. Oxygenation is stable and the patient remains on room air oxygen. She remains on anticoagulation with Eliquis. The rest of the labs are essentially stable and unchanged. The white cell count is at 6.8, hemoglobin 11.9, d-dimer is low at 0.2, LFTs are normal, electrolytes are stable with a serum bicarb of 20, Zacarias is a 50 with a creatinine of 0.6. On today's evaluation of 07/02/2023, the patient is being seen for a follow-up. Patient is still weak and lethargic and she is complaining of some congested cough. Appetite is poor. Oral intake is quite diminished. She remains on IV fluidsa rate of 75 mL an hour. She was on Decadron and I took the opportunity to switch to IV Solu-Medrol based on an ongoing chest tightness and wheeze. Otherwise, she is on albuterol HFA [id number], she is also on anti- cognition with Eliquis 5 mg by mouth twice a day. The labs from today shows edematous, 4.1, hemoglobin 11.1, INR is at 0.9, serum bicarbs of 19 and a sodium level is at 137, liver function tests are within normal limits, proBNP level is 5670. Echocardiogram was also completed and the patient is a preserved ejection fraction of 55-60%. No significant valvular abnormalities other than some mild to moderate mitral regurgitation. On today's evaluation of fall, the patient is feeling slightly improved compared to yesterday. No significant nausea or emesis. She remains on IV fluids at 75 mL an hour. She remains on IV Solu-Medrol which is causing some GI upset and I recommended stopping the IV Solu-Medrol and put the patient on Decadron. She remains on 2 L of O2 nasal cannula with a pulse ox of 98%. Rest of the treatment is essentially unchanged. The patient remains on cognition with Eliquis. Follow-up chest x-ray from today shows no evidence of consolidation or airspace disease. The patient has a pacemaker in place. The patient has an echocardiogram that showed a preserved LV function without any valvular abnormalities. On today's evaluation of 07/04/2023, the patient is having issues with atrial fibrillation. She had evidence currently response overnight and the patient was started on amiodarone drip per protocol. She is still tachycardic at this point in time. She is also metoprolol 50 mg by mouth twice a day. She is on anticoagulation with Eliquis. She still has some chest congestion and cough. She remains on IV fluids at 75 mL an hour. No significant illnesses and nausea has subsided. As mentioned, the patient had a normal left ventricular ejection fraction of 55%, she has mild to moderate mitral regurgitation. She remains on oxygen 2 L per minute nasal cannula with a pulse ox of 99%. She remains on Decadron. Objective - Vital Signs Vital signs: Vital Signs Temp 96.2 F L 07/03/23 23:09 Pulse 133 H 07/04/23 09:35 Resp 16 07/04/23 09:35 BP 119/66 07/04/23 09:35 Pulse Ox 99 07/04/23 09:35 FiO2 21 07/03/23 20:46 Intake & Output 07/03/23 07/04/23 07/04/23 18:59 06:59 18:59 Intake Total 540 658 Output Total 0 Balance 540 658 Intake: Oral 540 658 Output: Gastric Drainage 0 Urine 0 Stool 0 Urine/Stool Mix 0 Emesis 0 Oral Regurgitation 0 Other 0 Other: Voiding Method Toilet Toilet # Voids 0 # Bowel Movements 0 - Exam GENERAL EXAM: Alert, 67-year-old white female , comfortable in no apparent dis tress. HEAD: Normocephalic and atraumatic EYES: Normal reaction of pupils, equal size. NOSE: Clear with pink turbinates. THROAT: No erythema or exudates. NECK: No masses, no JVD. CHEST: No chest wall deformity. LUNGS: Equal air entry with no crackles, wheeze, rhonchi or dullness. On room air. SpO2 94%. No conversational dyspnea or accessory muscle use.. CVS: S1 and S2 normal with no audible murmur, irregular rhythm. No extra heart sounds ABDOMEN: No hepatosplenomegaly, active bowel sounds, no guarding or rigidity. SPINE: No scoliosis or deformity SKIN: No rashes CENTRAL NERVOUS SYSTEM: No focal deficits, tone is normal in all 4 extremities. EXTREMITIES: There is no peripheral edema, clubbing, or cyanosis. Peripheral pulses are intact. - Labs CBC & Chem 7: 07/02/23 08:20 07/02/23 08:20 Labs: Abnormal Lab Results - Last 24 Hours (Table) 07/03/23 07/03/23 07/03/23 Range/Units 13:16 16:11 20:12 POC Glucose (mg/dL) 121 H 133 H 187 H (70-110) mg/dL 07/04/23 Range/Units 05:49 POC Glucose (mg/dL) 124 H (70-110) mg/dL Assessment and Plan Plan: Acute COVID-19 infection, chest x-ray shows no acute infiltrates or evidence of COVID-19 pneumonia. The patient has had Covid 19 infection the past and this is her third infection. No prior vaccination. No evidence of any pneumonia. No significant hypoxemia and a pulse ox is 99 % on 2 L of oxygen by nasal cannula The patient remains symptomatic with active cough and chest tightness and wh eezing. Consider underlying asthma exacerbation related to Covid 19 infection, she is on albuterol rescue inhaler and Decadron. Acute asthma exacerbation Atrial fibrillation with rapid ventricular rate, episodic with rapid ventricular response. The patient is currently back into A. fib RVR and currently she is on amiodarone drip. She is on metoprolol pitches anticoagulation. Acute dyspnea, likely secondary to above, improving Severe dehydration, improving and the patient is currently on IV fluids History of asthma, stable History of nonischemic cardiomyopathy History of AICD implantation Hyperlipidemia Hypertension Hypothyroidism Plan: Rate control regarding the atrial fibrillation fibrillation Amiodarone per protocol Continue metoprolol Continue fluids as the patient was quite dehydrated Continue steroids with Decadron Increase oral intake Cardiac rhythm is back to sinus Continue anticoagulation, she is on anticoagulation with Eliquis The patient is on room air oxygen, while on 2 L a pulse ox of 99% No evidence of any pneumonia Currently on room air, and not a candidate for Remdesivir. Negative for influenza, RSV. Cardiology manage atrial fibrillation, the patient is currently on Eliquis We'll continue to follow
--- NOTE | 2023-07-04 13:45 | P.PN ---
Subjective Progress Note Date: 07/04/23 Principal diagnosis: Cough, chest pain, COVID-19, afib Patient is awake alert oriented 3 currently denies chest pain or pressure continues to remain short of breath with productive cough mild nausea. Echocardiograms shows only within normal limits blood pressure slightly eleva joseph, persistant afib Objective - Vital Signs Vital signs: Vital Signs Temp 96.2 F L 07/03/23 23:09 Pulse 66 07/04/23 12:00 Resp 16 07/04/23 12:00 BP 122/64 07/04/23 12:00 Pulse Ox 99 07/04/23 12:00 FiO2 21 07/03/23 20:46 Intake & Output 07/03/23 07/04/23 07/04/23 18:59 06:59 18:59 Intake Total 540 658 Output Total 0 Balance 540 658 Intake: Oral 540 658 Output: Gastric Drainage 0 Urine 0 Stool 0 Urine/Stool Mix 0 Emesis 0 Oral Regurgitation 0 Other 0 Other: Voiding Method Toilet Toilet Toilet # Voids 0 # Bowel Movements 0 - Exam General: [Patient awake, alert and oriented times 3. Patient in no acute distress.] HEENT: [PERRL. EOMI. No pharyngeal erythema or exudate.] Neck: [No adenopathy.] Cardiac: [Heart regular in rate and rhythm. No S3. No S4. No clicks, rubs. No murmur.] Lungs: coarse bs bilat Abdomen: [No mass. No organomegaly. Bowel sounds presnt and normoactive in all 4 quadrants.] Extremes: [No edema no cyanosis no claudication normal pulses] : Normal female genitalia Musculoskeletal: [No joint erythema, edema or tenderness.] Skin: [No rash.] Neurologic: [No lateralizing deficits. CN II - XII grossly intact.] Lymphatic: [No adenopathy.] - Labs CBC & Chem 7: 07/02/23 08:20 07/02/23 08:20 Labs: Abnormal Lab Results - Last 24 Hours (Table) 07/03/23 07/03/23 07/04/23 Range/Units 16:11 20:12 05:49 POC Glucose (mg/dL) 133 H 187 H 124 H (70-110) mg/dL Assessment and Plan (1) AICD (automatic cardioverter/defibrillator) present Current Visit: Yes Status: Acute Code(s): Z95.810 - PRESENCE OF AUTOMATIC (IMPLANTABLE) CARDIAC DEFIBRILLATOR SNOMED Code(s): 732256249 (2) Asthma Current Visit: Yes Status: Acute Code(s): J45.909 - UNSPECIFIED ASTHMA, UNCOMPLICATED SNOMED Code(s): 280862003 (3) Atrial fibrillation with RVR Current Visit: Yes Status: Acute Code(s): I48.91 - UNSPECIFIED ATRIAL FIBRILLATION SNOMED Code(s): 629587592409682 (4) COVID-19 Current Visit: Yes Status: Acute Code(s): U07.1 - COVID-19 SNOMED Code(s): 293447857 (5) Dehydration Current Visit: Yes Status: Acute Code(s): E86.0 - DEHYDRATION SNOMED Code(s): 78119856 (6) Essential (primary) hypertension Current Visit: Yes Status: Acute Code(s): I10 - ESSENTIAL (PRIMARY) HYPERTENSION SNOMED Code(s): 08118617 (7) H/O ventricular tachycardia Current Visit: Yes Status: Acute Code(s): Z86.79 - PERSONAL HISTORY OF OTHER DISEASES OF THE CIRCULATORY SYSTEM SNOMED Code(s): 517530311172064 (8) Hypoxia Current Visit: Yes Status: Acute Code(s): R09.02 - HYPOXEMIA SNOMED Code(s): 542477541 Plan: Aggressive supportive care treatment of Covid 19 Continue current cardiac meds Lisinopril added per recommendation We'll follow closely Time with Patient: Greater than 30
[2023-07-04] MEDS ORDERED: AMIODARONE 450 MG in DEXTROSE 5% IN WATER 250 ML IV SCH ×2 (16:00)
[2023-07-04 16:53] LABS: Glucose,Whole Blood 185 mg/dL (70-110)
[2023-07-04 20:35] LABS: Glucose,Whole Blood 144 mg/dL (70-110)
[2023-07-04] MEDS: BENZOCAINE/MENTHOL LOZENG 1 EACH LOZENGE MUCOUS MEM PRN (21:22)
[2023-07-04] MEDS: AMIODARONE 200 MG TAB PO SCH (21:42)
[2023-07-05] MEDS: SODIUM CHLORIDE 0.9% 1,000 ML IV SCH ×4 (03:08→16:52)
[2023-07-05] MEDS: BENZONATATE 100 MG CAP PO PRN ×3 (05:11→20:41)
[2023-07-05] MEDS: ACETAMINOPHEN TAB 325 MG TAB PO PRN (05:11)
[2023-07-05] MEDS: LEVOTHYROXINE 50 MCG TAB PO SCH (05:11)
[2023-07-05 06:03] LABS: Glucose,Whole Blood 104 mg/dL (70-110)
[2023-07-05] MEDS: INSULIN ASPART (NovoLOG) 100 UNIT/ML VIAL SQ SCH ×4 (06:44→20:41)
[2023-07-05] MEDS: dexAMETHasone 2 MG TAB PO SCH (09:08)
[2023-07-05] MEDS: APIXABAN 5 MG TAB PO SCH ×2 (09:08→20:41)
[2023-07-05] MEDS: AMIODARONE 200 MG TAB PO SCH ×2 (09:08→20:41)
[2023-07-05] MEDS: METOPROLOL TARTRATE 50 MG TAB PO SCH ×2 (09:08→20:41)
[2023-07-05] MEDS: MONTELUKAST 10 MG TAB PO SCH (09:08)
[2023-07-05] MEDS: ATORVASTATIN 80 MG TAB PO SCH (09:08)
[2023-07-05] MEDS: lisinopriL 10 MG TAB PO SCH (09:08)
[2023-07-05] MEDS: CYCLOSPORINE 0.09% BOTH EYES SCH (09:10)
[2023-07-05 12:09] LABS: Glucose,Whole Blood 96 mg/dL (70-110)
--- NOTE | 2023-07-05 13:41 | P.PN ---
Subjective Progress Note Date: 07/05/23 I am seeing this patient in consultation today 06/30/2023 in the emergency room, room 24, after she tested positive for COVID-19. Patient is a 67-year-old white female with past medical history significant for nonischemic cardiomyopathy, V. tach with AICD implantation, paroxysmal atrial fibrillation, hyperlipidemia, hypertension, asthma, among other things. Reportedly follows with Dr. Barker for management of her asthma. She uses an as needed albuterol rescue inhaler. She h as not been vaccinated for COVID-19. Patient states that she's been having a sore throat, earache, cough, chest burning, subjective fever/chills, and worsening shortness of breath since Wednesday. She states that she did attend a family green party, and her brother's grandkids were sick. When reportedly tested positive for RSV later. On arrival to the emergency room, she did test positive for COVID-19. She was orignally requiring low flow oxygen. Chest x-ray did not show any acute infiltrates or evidence of COVID-19 pneumonia. Patient is currently sitting up in bed, on room air, in no acute distress. SpO2 94%. She's been started on Decadron. Heart rhythm is currently atrial fibrillation with rapid ventricular rate of 100-140 bpm. States that she missed several doses of metoprolol because of some nausea and vomiting, which is now subsided. Cardizem is to be started at 10 mg per hour per cardiology. Blood pressure stable. CBC on arrival was unremarkable. BMP shows sodium 131, potassium 3.9, chloride 94, serum bicarb 25, BUN 15, creatinine 0.93, glucose 107. Troponin 0.026. Normal saline infusing at 75 mL per hour. Vital signs are stable. Patient will be admitted to the cardiac stepdown unit. I saw this patient in emergency department this morning. The patient is already feeling somewhat better. She is on room air oxygen. She continues to have some congested cough. She is complaining of generalized weakness and some GI upset. Note that this is not the patient's first infection. She has been infected in the past and she seems to be getting infected with Covid 19 on a yearly basis. During her last infection, she was treated with Paxlovid. She has not received any previous Covid 19 vaccination. I reviewed the chest x-ray and there is no evidence of any pneumonia at this point in time. She has a defibrillator in place. Her cardiac rhythm is back into normal sinus at this point in time. She remains on Decadron. On today's evaluation of 07/01/2023, the patient is still feeling weak. Somewhat better compared to yesterday. She still being resuscitated with IV fluids. She is on normal saline at the rate of 75 mL an hour. She remains on Decadron. Oxygenation is stable and the patient remains on room air oxygen. She remains on anticoagulation with Eliquis. The rest of the labs are essentially stable and unchanged. The white cell count is at 6.8, hemoglobin 11.9, d-dimer is low at 0.2, LFTs are normal, electrolytes are stable with a serum bicarb of 20, Zacarias is a 50 with a creatinine of 0.6. On today's evaluation of 07/02/2023, the patient is being seen for a follow-up. Patient is still weak and lethargic and she is complaining of some congested cough. Appetite is poor. Oral intake is quite diminished. She remains on IV fluidsa rate of 75 mL an hour. She was on Decadron and I took the opportunity to switch to IV Solu-Medrol based on an ongoing chest tightness and wheeze. Otherwise, she is on albuterol HFA [id number], she is also on anti- cognition with Eliquis 5 mg by mouth twice a day. The labs from today shows edematous, 4.1, hemoglobin 11.1, INR is at 0.9, serum bicarbs of 19 and a sodium level is at 137, liver function tests are within normal limits, proBNP level is 5670. Echocardiogram was also completed and the patient is a preserved ejection fraction of 55-60%. No significant valvular abnormalities other than some mild to moderate mitral regurgitation. On today's evaluation of fall, the patient is feeling slightly improved compared to yesterday. No significant nausea or emesis. She remains on IV fluids at 75 mL an hour. She remains on IV Solu-Medrol which is causing some GI upset and I recommended stopping the IV Solu-Medrol and put the patient on Decadron. She remains on 2 L of O2 nasal cannula with a pulse ox of 98%. Rest of the treatment is essentially unchanged. The patient remains on cognition with Eliquis. Follow-up chest x-ray from today shows no evidence of consolidation or airspace disease. The patient has a pacemaker in place. The patient has an echocardiogram that showed a preserved LV function without any valvular abnormalities. On today's evaluation of 07/04/2023, the patient is having issues with atrial fibrillation. She had evidence currently response overnight and the patient was started on amiodarone drip per protocol. She is still tachycardic at this point in time. She is also metoprolol 50 mg by mouth twice a day. She is on anticoagulation with Eliquis. She still has some chest congestion and cough. She remains on IV fluids at 75 mL an hour. No significant illnesses and nausea has subsided. As mentioned, the patient had a normal left ventricular ejection fraction of 55%, she has mild to moderate mitral regurgitation. She remains on oxygen 2 L per minute nasal cannula with a pulse ox of 99%. She remains on Decadron. On 07/05/2023, the patient is feeling better compared to yesterday. She has cough without any significant shortness of breath. No nausea or emesis pH is tolerating the Decadron for now. No confusion. No altered mentation. Appetite is gradually improving and the patient is taking a short and she is also having some fruits. Her cardiac rhythm is back into sinus rhythm. The patient was taken off the IV amiodarone and currently she is on amiodarone 200 mg by mouth twice a day. She is also metoprolol 50 mg twice a day. He is on anticoagulation with Eliquis. Cough is still present. Is not vigorous. The patient is currently on room air oxygen. Objective - Vital Signs Vital signs: Vital Signs Temp 97.8 F 07/05/23 09:03 Pulse 78 07/05/23 09:52 Resp 18 07/05/23 09:52 BP 148/80 07/05/23 09:03 Pulse Ox 97 07/05/23 09:03 FiO2 21 07/03/23 20:46 Intake & Output 07/04/23 07/05/23 07/05/23 18:59 06:59 18:59 Intake Total 240 Balance 240 Intake: Oral 240 Other: Voiding Method Toilet Toilet Toilet # Voids 3 3 - Exam GENERAL EXAM: Alert, 67-year-old white female , comfortable in no apparent distress. HEAD: Normocephalic and atraumatic EYES: Normal reaction of pupils, equal size. NOSE: Clear with pink turbinates. THROAT: No erythema or exudates. NECK: No masses, no JVD. CHEST: No chest wall deformity. LUNGS: Equal air entry with no crackles, wheeze, rhonchi or dullness. On room air. SpO2 94%. No conversational dyspnea or accessory muscle use.. CVS: S1 and S2 normal with no audible murmur, irregular rhythm. No extra heart sounds ABDOMEN: No hepatosplenomegaly, active bowel sounds, no guarding or rigidity. SPINE: No scoliosis or deformity SKIN: No rashes CENTRAL NERVOUS SYSTEM: No focal deficits, tone is normal in all 4 extremities. EXTREMITIES: There is no peripheral edema, clubbing, or cyanosis. Peripheral pulses are intact. - Labs CBC & Chem 7: 07/02/23 08:20 07/02/23 08:20 Labs: Abnormal Lab Results - Last 24 Hours (Table) 07/04/23 07/04/23 Range/Units 16:49 20:33 POC Glucose (mg/dL) 185 H 144 H (70-110) mg/dL Assessment and Plan Plan: Acute COVID-19 infection, chest x-ray shows no acute infiltrates or evidence of COVID-19 pneumonia. The patient has had Covid 19 infection the past and this is her third infection. No prior vaccination. No evidence of any pneumonia. No significant hypoxemia and a pulse ox is 99 % on 2 L of oxygen by nasal cannula The patient remains symptomatic with active cough and chest tightness and wheezing. Consider underlying asthma exacerbation related to Covid 19 infection, she is on albuterol rescue inhaler and Decadron. Acute asthma exacerbation Atrial fibrillation with rapid ventricular rate, episodic with rapid ventricular response. The patient is currently back into normal sinus rhythm on oral amiodarone and metoprolol and anticoagulation with Eliquis Acute dyspnea, likely secondary to above, improving, still having some cough , Severe dehydration, improving and the patient is currently on IV fluids History of asthma, stable History of nonischemic cardiomyopathy History of AICD implantation Hyperlipidemia Hypertension Hypothyroidism Plan: Patient is back into sinus rhythm Amiodarone per protocol, loading has been completed and the patient is currently on amiodarone 200 mg twice a day Continue metoprolol at a dose of 50 mg twice a day Antibiotic cognition with Eliquis Continue fluids as the patient was quite dehydrated Continue steroids with Decadron Increase oral intake, taking a short Cardiac rhythm is back to sinus Continue anticoagulation, she is on anticoagulation with Eliquis The patient is on room air oxygen No evidence of any pneumonia Currently on room air, and not a candidate for Remdesivir. Negative for influenza, RSV. We'll continue to follow
--- NOTE | 2023-07-05 13:59 | P.PN ---
Subjective Progress Note Date: 07/05/23 Principal diagnosis: Cough, chest pain, COVID-19, afib Patient is awake alert oriented 3 currently denies chest pain or pressure continues to improve, cough mild nausea. , Echocardiograms shows preserved ejection fraction, blood pressure slightly elevate, rhythm currently sinus, no confusion no altered mental state. Appetite improved, IV antiarrhythmics stopped currently on oral amiodarone 200 mg by mouth twice daily, metoprolol 50 mg twice daily, anticoagulation with apixaban, patient is currently on room air and still on Decadron Objective - Vital Signs Vital signs: Vital Signs Temp 97.8 F 07/05/23 09:03 Pulse 67 07/05/23 12:47 Resp 18 07/05/23 12:47 BP 106/65 07/05/23 12:47 Pulse Ox 98 07/05/23 12:47 FiO2 21 07/03/23 20:46 Intake & Output 07/04/23 07/05/23 07/05/23 18:59 06:59 18:59 Intake Total 240 Balance 240 Intake: Oral 240 Other: Voiding Method Toilet Toilet Toilet # Voids 3 3 - Exam General: [Patient awake, alert and oriented times 3. Patient in no acute distress.] HEENT: [PERRL. EOMI. No pharyngeal erythema or exudate.] Neck: [No adenopathy.] Cardiac: [Heart regular in rate and rhythm. No S3. No S4. No clicks, rubs. No murmur.] Lungs: coarse bs bilat Abdomen: [No mass. No organomegaly. Bowel sounds presnt and normoactive in all 4 quadrants.] Extremes: [No edema no cyanosis no claudication normal pulses] : Normal female genitalia Musculoskeletal: [No joint erythema, edema or tenderness.] Skin: [No rash.] Neurologic: [No lateralizing deficits. CN II - XII grossly intact.] Lymphatic: [No adenopathy.] - Labs CBC & Chem 7: 07/02/23 08:20 07/02/23 08:20 Labs: Abnormal Lab Results - Last 24 Hours (Table) 07/04/23 07/04/23 Range/Units 16:49 20:33 POC Glucose (mg/dL) 185 H 144 H (70-110) mg/dL Assessment and Plan (1) AICD (automatic cardioverter/defibrillator) present Current Visit: Yes Status: Acute Code(s): Z95.810 - PRESENCE OF AUTOMATIC (IMPLANTABLE) CARDIAC DEFIBRILLATOR SNOMED Code(s): 578123169 (2) Asthma Current Visit: Yes Status: Acute Code(s): J45.909 - UNSPECIFIED ASTHMA, UNCOMPLICATED SNOMED Code(s): 269184872 (3) Atrial fibrillation with RVR Current Visit: Yes Status: Acute Code(s): I48.91 - UNSPECIFIED ATRIAL FIBRILLATION SNOMED Code(s): 818053732559353 (4) COVID-19 Current Visit: Yes Status: Acute Code(s): U07.1 - COVID-19 SNOMED Code(s): 524958043 (5) Dehydration Current Visit: Yes Status: Acute Code(s): E86.0 - DEHYDRATION SNOMED Code(s): 98280231 (6) Essential (primary) hypertension Current Visit: Yes Status: Acute Code(s): I10 - ESSENTIAL (PRIMARY) HYPERTENSION SNOMED Code(s): 24153914 (7) H/O ventricular tachycardia Current Visit: Yes Status: Acute Code(s): Z86.79 - PERSONAL HISTORY OF OTHER DISEASES OF THE CIRCULATORY SYSTEM SNOMED Code(s): 521474241504814 (8) Hypoxia Current Visit: Yes Status: Acute Code(s): R09.02 - HYPOXEMIA SNOMED Code(s): 451997620 Plan: Aggressive supportive care treatment of Covid 19 Continue current cardiac meds Resume currently normal sinus Patient slowly improving We'll follow closely Time with Patient: Greater than 30
--- NOTE | 2023-07-05 16:18 | P.PN ---
Subjective Progress Note Date: 07/05/23 HISTORY OF PRESENT ILLNESS: Patient examined this morning at the bedside. Patient currently denies chest pain or pressure. She reports shortness of breath and frequent coughing. She also reports that she is nauseated this morning. She remains in sinus mechanism. 2-D echo is currently pending. 07/02/2023 Patient examined this morning at the bedside. She denies chest pain or pressure. She continues to report shortness of breath and up productive cough. She reports nausea and dry heaves this morning. Telemetry reveals sinus mechanism. Echocardiogram completed revealing ejection fraction 55-60%, mild to moderate MR, and moderate TR. Patient blood pressures have been elevated with a systolic in the 150s to 160s. 07/03/2023 Patient was seen and examined at bedside the same. Last night patient had an episode of atrial ablation of the bed. Ventricular response. She then converted back into normal sinus rhythm. This morning she is in normal sinus rhythm 07/05/23 BP 106/65, heart rate 67 beats minute, currently in normal sinus rhythm Patient is maintaining sinus rhythm over last 48 hours. PHYSICAL EXAM: VITAL SIGNS: Reviewed. GENERAL: Well-developed in no acute distress. NECK: Supple. No JVD or thyromegaly LUNGS: Respirations even and unlabored. Lungs essentially clear to auscultation bilaterally. HEART: Regular rate and rhythm. S1 and S2 heard. Systolic murmur noted. EXTREMITIES: Normal range of motion. No clubbing or cyanosis. Peripheral pulses intact. No lower extremity edema ASSESSMENT: Covid 19 Paroxysmal atrial fibrillation with RVR, currently maintaining sinus mechanism History of nonischemic cardiomyopathy with previous AICD implantation COPD PLAN: Treatment of Covid 19 per primary medicine Continue current cardiac medications Continue metoprolol, lisinopril, atorvastatin. Discontinue amiodarone drip. Start amiodarone 200 mg twice a day for next 7 days. After 7 days reduce it to once a day for next 30 days. Amiodarone is only for short-term. . Objective - Vital Signs Vital signs: Vital Signs Temp 97.8 F 07/05/23 09:03 Pulse 67 07/05/23 12:47 Resp 18 07/05/23 12:47 BP 106/65 07/05/23 12:47 Pulse Ox 98 07/05/23 12:47 FiO2 21 07/03/23 20:46 Intake & Output 07/04/23 07/05/23 07/05/23 18:59 06:59 18:59 Intake Total 240 Balance 240 Intake: Oral 240 Other: Voiding Method Toilet Toilet Toilet # Voids 3 3 - Labs CBC & Chem 7: 07/02/23 08:20 07/02/23 08:20 Labs: Abnormal Lab Results - Last 24 Hours (Table) 07/04/23 07/04/23 Range/Units 16:49 20:33 POC Glucose (mg/dL) 185 H 144 H (70-110) mg/dL
[2023-07-05 17:03] LABS: Glucose,Whole Blood 123 mg/dL (70-110)
[2023-07-05] MEDS: ALBUTEROL HFA INHALER INHALATION PRN (19:45)
[2023-07-05 20:34] LABS: Glucose,Whole Blood 171 mg/dL (70-110)
[2023-07-06] MEDS: SODIUM CHLORIDE 0.9% 1,000 ML IV SCH ×2 (00:54→06:30)
[2023-07-06] MEDS: ONDANSETRON 4 MG/2 ML VIAL IVP PRN (00:55)
[2023-07-06 06:04] LABS: Glucose,Whole Blood 105 mg/dL (70-110)
[2023-07-06] MEDS: INSULIN ASPART (NovoLOG) 100 UNIT/ML VIAL SQ SCH ×2 (06:19→11:26)
[2023-07-06] MEDS: LEVOTHYROXINE 50 MCG TAB PO SCH (06:30)
[2023-07-06 06:47] LABS: HCT 31.9 % (34.0-46.0); HGB 10.8 gm/dL (11.4-16.0); MCHC 33.9 g/dL (31.0-37.0); MCV 97.3 fL (80.0-100.0); Mean Platelet Volume 8.1; Platelet Count 228 k/uL (150-450); RBC 3.28 m/uL (3.80-5.40); RDW 13.2 % (11.5-15.5); WBC 9.9 k/uL (3.8-10.6)
[2023-07-06 07:06] LABS: African American GFR (CKD) >90 (>60 ml/min/1.73 sqM); Anion Gap 6 mmol/L; Blood Urea Nitrogen 22 mg/dL (7-17); Calcium 8.2 mg/dL (8.4-10.2); Carbon Dioxide 28 mmol/L (22-30); Chloride 97 mmol/L (98-107); Glucose 100 mg/dL (74-99); Non-African American GFR(CKD) 82 (>60 ml/min/1.73 sqM); Potassium 3.7 mmol/L (3.5-5.1); Sodium 131 mmol/L (137-145)
[2023-07-06] MEDS: dexAMETHasone 2 MG TAB PO SCH (08:11)
[2023-07-06] MEDS: BENZONATATE 100 MG CAP PO PRN (08:11)
[2023-07-06] MEDS: AMIODARONE 200 MG TAB PO SCH (08:11)
[2023-07-06] MEDS: ACETAMINOPHEN TAB 325 MG TAB PO PRN (08:11)
[2023-07-06] MEDS: MONTELUKAST 10 MG TAB PO SCH (08:12)
[2023-07-06] MEDS: ATORVASTATIN 80 MG TAB PO SCH (08:12)
[2023-07-06] MEDS: METOPROLOL TARTRATE 50 MG TAB PO SCH (08:12)
[2023-07-06] MEDS: APIXABAN 5 MG TAB PO SCH (08:12)
[2023-07-06] MEDS: lisinopriL 10 MG TAB PO SCH (08:13)
[2023-07-06] MEDS: CYCLOSPORINE 0.09% BOTH EYES SCH (08:15)
[2023-07-06 09:26] VITALS: RESP 20; TEMP 97.9
[2023-07-06 11:25] LABS: Glucose,Whole Blood 100 mg/dL (70-110)
[2023-07-06 11:47] VITALS: BP 151/83; PULSE 64
--- NOTE | 2023-07-06 13:16 | P.DS ---
Providers Date of admission: 06/29/23 15:55 Expected date of discharge: 07/06/23 Attending physician: Prakash Alejandra Consults: 06/29/23 16:16 Consult Physician Urgent Consulting Provider: Kary Eden Consult Reason/Comments: COVID 19 Do you want consulting provider notified?: Yes 06/29/23 17:33 Consult Physician Routine Consulting Provider: Kary Eden Consult Reason/Comments: covid hypoxia Do you want consulting provider notified?: Yes 07/02/23 23:16 Consult Physician Routine Consulting Provider: Arvind Adams Consult Reason/Comments: afib RVR Do you want consulting provider notified?: Yes Primary care physician: Prakash Alejandra - Discharge Diagnosis(es) (1) AICD (automatic cardioverter/defibrillator) present Current Visit: Yes Status: Acute (2) Asthma Current Visit: Yes Status: Acute (3) Atrial fibrillation with RVR Current Visit: Yes Status: Acute (4) COVID-19 Current Visit: Yes Status: Acute (5) Dehydration Current Visit: Yes Status: Acute (6) Essential (primary) hypertension Current Visit: Yes Status: Acute (7) H/O ventricular tachycardia Current Visit: Yes Status: Acute (8) Hypoxia Current Visit: Yes Status: Acute Hospital Course: Admitted with COVID-19 positive, atrial fibrillation, currently in sinus rhythm General: [Patient awake, alert and oriented times 3. Patient in no acute distress.] HEENT: [PERRL. EOMI. No pharyngeal erythema or exudate.] Neck: [No adenopathy.] Cardiac: [Heart regular in rate and rhythm. No S3. No S4. No clicks, rubs. No murmur.] Lungs: [Clear to auscultation bilaterally.] Abdomen: [No mass. No organomegaly. Bowel sounds presnt and normoactive in all 4 quadrants.] Extremes: [No edema no cyanosis no claudication normal pulses] : Normal female genitalia Musculoskeletal: [No joint erythema, edema or tenderness.] Skin: [No rash.] Neurologic: [No lateralizing deficits. CN II - XII grossly intact.] Lymphatic: [No adenopathy.] Patient Condition at Discharge: Fair Plan - Discharge Summary New Discharge Prescriptions: No Action Montelukast Sodium [Singulair] 10 mg PO DAILY Albuterol Inhaler [Ventolin Hfa Inhaler] 2 puff INHALATION RT-Q6H PRN PRN Reason: Shortness Of Breath Atorvastatin [Lipitor] 80 mg PO DAILY Metoprolol Tartrate 37.5 mg PO DAILY Levothyroxine Sodium [Synthroid] 50 mcg PO DAILY Metoprolol Tartrate [Lopressor] 50 mg PO HS Apixaban [Eliquis] 5 mg PO BID Cyclosporine (Cequa) 0.09% Dropperette 1 applic BOTH EYES DAILY Discharge Medication List Albuterol Inhaler [Ventolin Hfa Inhaler] 2 puff INHALATION RT-Q6H PRN 11/03/16 [History] Montelukast Sodium [Singulair] 10 mg PO DAILY 11/03/16 [History] Atorvastatin [Lipitor] 80 mg PO DAILY 02/09/17 [History] Metoprolol Tartrate 37.5 mg PO DAILY 02/09/17 [History] Levothyroxine Sodium [Synthroid] 50 mcg PO DAILY 11/07/20 [History] Apixaban [Eliquis] 5 mg PO BID 06/29/23 [History] Cyclosporine (Cequa) 0.09% Dropperette 1 applic BOTH EYES DAILY 06/29/23 [History] Metoprolol Tartrate [Lopressor] 50 mg PO HS 06/29/23 [History] Follow up Appointment(s)/Referral(s): Prakash Alejandra MD [Primary Care Provider] - 1-2 days Discharge Disposition: HOME WITH HOME HEALTH SERVICES
--- NOTE | 2023-07-06 14:07 | P.PN ---
Subjective Progress Note Date: 07/06/23 HISTORY OF PRESENT ILLNESS: Patient examined this morning at the bedside. Patient currently denies chest pain or pressure. She reports shortness of breath and frequent coughing. She also reports that she is nauseated this morning. She remains in sinus mechanism. 2-D echo is currently pending. 07/02/2023 Patient examined this morning at the bedside. She denies chest pain or pressure. She continues to report shortness of breath and up productive cough. She reports nausea and dry heaves this morning. Telemetry reveals sinus mechanism. Echocardiogram completed revealing ejection fraction 55-60%, mild to moderate MR, and moderate TR. Patient blood pressures have been elevated with a systolic in the 150s to 160s. 07/03/2023 Patient was seen and examined at bedside the same. Last night patient had an episode of atrial ablation of the bed. Ventricular response. She then converted back into normal sinus rhythm. This morning she is in normal sinus rhythm 07/05/23 BP 106/65, heart rate 67 beats minute, currently in normal sinus rhythm Patient is maintaining sinus rhythm over last 48 hours. 07/06 Patient remains in isolation for Covid 19 with frequent coughing. She is currently maintained on metoprolol, lisinopril and statin. PHYSICAL EXAM: VITAL SIGNS: Reviewed. GENERAL: Well-developed in no acute distress. NECK: Supple. No JVD or thyromegaly LUNGS: Respirations even and unlabored. Lungs essentially clear to auscultation bilaterally. HEART: Regular rate and rhythm. S1 and S2 heard. Systolic murmur noted. EXTREMITIES: Normal range of motion. No clubbing or cyanosis. Peripheral pulses intact. No lower extremity edema ASSESSMENT: Covid 19 Paroxysmal atrial fibrillation with RVR, currently maintaining sinus mechanism History of nonischemic cardiomyopathy with previous AICD implantation COPD PLAN: Treatment of Covid 19 per primary medicine Continue eliquis, metoprolol, lisinopril, atorvastatin. Continue amiodarone 200 mg twice a day and transition to daily at time of discha rge. Amiodarone is only for short-term. Cardiology will sign off this case and follow on an as-needed basis. Please reconsult for any new concerns. Patient may follow-up in the office in one to 2 weeks. Nurse practitioner note has been reviewed, I agree with the documented findings and plan of care. Patient was seen and examined. Objective - Vital Signs Vital signs: Vital Signs Temp 97.9 F 07/06/23 08:00 Pulse 63 07/06/23 08:00 Resp 20 07/06/23 08:00 BP 146/83 07/06/23 08:00 Pulse Ox 99 07/06/23 08:00 FiO2 21 07/03/23 20:46 Intake & Output 07/05/23 07/06/23 07/06/23 18:59 06:59 18:59 Intake Total 120 120 240 Balance 120 120 240 Intake: Oral 120 120 240 Other: Voiding Method Toilet Toilet # Voids 2 - Labs CBC & Chem 7: 07/06/23 06:06 07/06/23 06:06 Labs: Abnormal Lab Results - Last 24 Hours (Table) 07/05/23 07/05/23 07/06/23 Range/Units 17:00 20:29 06:06 RBC 3.28 L (3.80-5.40) m/uL Hgb 10.8 L (11.4-16.0) gm/dL Hct 31.9 L (34.0-46.0) % Sodium (137-145) mmol/L Chloride (98-107) mmol/L BUN (7-17) mg/dL Glucose (74-99) mg/dL POC Glucose (mg/dL) 123 H 171 H (70-110) mg/dL Calcium (8.4-10.2) mg/dL 07/06/23 Range/Units 06:06 RBC (3.80-5.40) m/uL Hgb (11.4-16.0) gm/dL Hct (34.0-46.0) % Sodium 131 L (137-145) mmol/L Chloride 97 L (98-107) mmol/L BUN 22 H (7-17) mg/dL Glucose 100 H (74-99) mg/dL POC Glucose (mg/dL) (70-110) mg/dL Calcium 8.2 L (8.4-10.2) mg/dL
--- NOTE | 2023-07-06 15:40 | P.PN ---
Subjective Progress Note Date: 07/06/23 Principal diagnosis: Acute COVID-19 infection and acute asthma exacerbation I am seeing this patient in consultation today 06/30/2023 in the emergency room, room 24, after she tested positive for COVID-19. Patient is a 67-year-old white female with past medical history significant for nonischemic cardiomyopathy, V. tach with AICD implantation, paroxysmal atrial fibrillation, hyperlipidemia, hypertension, asthma, among other things. Reportedly follows with Dr. Barker for management of her asthma. She uses an as needed albuterol rescue inhaler. She has not been vaccinated for COVID-19. Patient states that she's been having a sore throat, earache, cough, chest burning, subjective fever/chills, and worsening shortness of breath since Wednesday. She states that she did attend a family republican, and her brother's grandkids were sick. When reportedly tested positive for RSV later. On arrival to the emergency room, she did test positive for COVID-19. She was orignally requiring low flow oxygen. Chest x-ray did not show any acute infiltrates or evidence of COVID-19 pneumonia. Patient is currently sitting up in bed, on room air, in no acute distress. SpO2 94%. She's been started on Decadron. Heart rhythm is currently atrial fibrillation with rapid ventricular rate of 100-140 bpm. States that she missed several doses of metoprolol because of some nausea and vomiting, which is now subsided. Cardizem is to be started at 10 mg per hour per cardiology. Blood pressure stable. CBC on arrival was unremarkable. BMP shows sodium 131, potassium 3.9, chloride 94, serum bicarb 25, BUN 15, creatinine 0.93, glucose 107. Troponin 0.026. Normal saline infusing at 75 mL per hour. Vital signs are stable. Patient will be admitted to the cardiac stepdown unit. I saw this patient in emergency department this morning. The patient is already feeling somewhat better. She is on room air oxygen. She continues to have some congested cough. She is complaining of generalized weakness and some GI upset. Note that this is not the patient's first infection. She has been infected in the past and she seems to be getting infected with Covid 19 on a yearly basis. During her last infection, she was treated with Paxlovid. She has not received any previous Covid 19 vaccination. I reviewed the chest x-ray and there is no evidence of any pneumonia at this point in time. She has a defibrillator in place. Her cardiac rhythm is back into normal sinus at this point in time. She remains on Decadron. On today's evaluation of 07/01/2023, the patient is still feeling weak. Somewhat better compared to yesterday. She still being resuscitated with IV fluids. She is on normal saline at the rate of 75 mL an hour. She remains on Decadron. Oxygenation is stable and the patient remains on room air oxygen. She remains on anticoagulation with Eliquis. The rest of the labs are essentially stable and unchanged. The white cell count is at 6.8, hemoglobin 11.9, d-dimer is low at 0.2, LFTs are normal, electrolytes are stable with a serum bicarb of 20, Zacarias is a 50 with a creatinine of 0.6. On today's evaluation of 07/02/2023, the patient is being seen for a follow-up. Patient is still weak and lethargic and she is complaining of some congested cough. Appetite is poor. Oral intake is quite diminished. She remains on IV fluidsa rate of 75 mL an hour. She was on Decadron and I took the opportunity to switch to IV Solu-Medrol based on an ongoing chest tightness and wheeze. Otherwise, she is on albuterol HFA [id number], she is also on anti-cognit ion with Eliquis 5 mg by mouth twice a day. The labs from today shows edematous, 4.1, hemoglobin 11.1, INR is at 0.9, serum bicarbs of 19 and a sodium level is at 137, liver function tests are within normal limits, proBNP level is 5670. Echocardiogram was also completed and the patient is a preserved ejection fraction of 55-60%. No significant valvular abnormalities other than some mild to moderate mitral regurgitation. On today's evaluation of fall, the patient is feeling slightly improved compared to yesterday. No significant nausea or emesis. She remains on IV fluids at 75 mL an hour. She remains on IV Solu-Medrol which is causing some GI upset and I recommended stopping the IV Solu-Medrol and put the patient on Decadron. She remains on 2 L of O2 nasal cannula with a pulse ox of 98%. Rest of the treatment is essentially unchanged. The patient remains on cognition with Eliquis. Follow-up chest x-ray from today shows no evidence of consolidation or airspace disease. The patient has a pacemaker in place. The patient has an echocardiogram that showed a preserved LV function without any valvular abnormalities. On today's evaluation of 07/04/2023, the patient is having issues with atrial fibrillation. She had evidence currently response overnight and the patient was started on amiodarone drip per protocol. She is still tachycardic at this point in time. She is also metoprolol 50 mg by mouth twice a day. She is on anticoagulation with Eliquis. She still has some chest congestion and cough. She remains on IV fluids at 75 mL an hour. No significant illnesses and nausea has subsided. As mentioned, the patient had a normal left ventricular ejection fraction of 55%, she has mild to moderate mitral regurgitation. She remains on oxygen 2 L per minute nasal cannula with a pulse ox of 99%. She remains on Decadron. On 07/05/2023, the patient is feeling better compared to yesterday. She has cough without any significant shortness of breath. No nausea or emesis pH is tolerating the Decadron for now. No confusion. No altered mentation. Appetite is gradually improving and the patient is taking a short and she is also having some fruits. Her cardiac rhythm is back into sinus rhythm. The patient was taken off the IV amiodarone and currently she is on amiodarone 200 mg by mouth twice a day. She is also metoprolol 50 mg twice a day. He is on anticoagulation with Eliquis. Cough is still present. Is not vigorous. The patient is currently on room air oxygen. Reevaluated today on 06/2024, patient is doing better, breathing easier, cont inues to have intermittent cough, no wheezing, minimal shortness of breath, no fever no chills no hemoptysis and no chest pain. Objective - Vital Signs Vital signs: Vital Signs Temp 97.9 F 07/06/23 08:00 Pulse 64 07/06/23 11:25 Resp 20 07/06/23 11:25 BP 151/83 07/06/23 11:25 Pulse Ox 99 07/06/23 11:25 FiO2 21 07/03/23 20:46 Intake & Output 07/05/23 07/06/23 07/06/23 18:59 06:59 18:59 Intake Total 120 120 240 Balance 120 120 240 Intake: Oral 120 120 240 Other: Voiding Method Toilet Toilet # Voids 2 - Exam Physical Exam: Revealed a 67-year-old female in no distress, on 2 L nasal cannula with O2 saturation 99 Head: Atraumatic, normocephalic HEENT:[Neck is supple.] [No neck masses.] [No thyromegaly.] [No JVD.] Chest: [Diminished breath sound bilaterally no crackles or rhonchi or wheezes Cardiac Exam: [Normal S1 and S2, no S3 gallop, no murmur.] Abdomen: [Soft, nontender, no megaly, no rebound, no guarding, normal bowel so unds.] Extremities: [No clubbing, no edema, no cyanosis.] Neurological Exam: [No focal neurologic deficit.] Alert oriented 3 Psychiatric: Normal mood affect and normal sinus examination Skin: No rash - Labs CBC & Chem 7: 07/06/23 06:06 07/06/23 06:06 Labs: Abnormal Lab Results - Last 24 Hours (Table) 07/05/23 07/05/23 07/06/23 Range/Units 17:00 20:29 06:06 RBC 3.28 L (3.80-5.40) m/uL Hgb 10.8 L (11.4-16.0) gm/dL Hct 31.9 L (34.0-46.0) % Sodium (137-145) mmol/L Chloride (98-107) mmol/L BUN (7-17) mg/dL Glucose (74-99) mg/dL POC Glucose (mg/dL) 123 H 171 H (70-110) mg/dL Calcium (8.4-10.2) mg/dL 07/06/23 Range/Units 06:06 RBC (3.80-5.40) m/uL Hgb (11.4-16.0) gm/dL Hct (34.0-46.0) % Sodium 131 L (137-145) mmol/L Chloride 97 L (98-107) mmol/L BUN 22 H (7-17) mg/dL Glucose 100 H (74-99) mg/dL POC Glucose (mg/dL) (70-110) mg/dL Calcium 8.2 L (8.4-10.2) mg/dL Assessment and Plan Assessment: Impression: Acute COVID-19 infection, Acute asthma exacerbation Paroxysmal atrial fibrillation History of nonischemic cardiomyopathy History of AICD implantation Hyperlipidemia Hypertension Hypothyroidism Recommendation: Consider discharge planning today Continue the COVID-19 cocktail Could be discharged home on prednisone burst and taper to control her cough instead of Decadron. Continue cardiac meds and eliquis Follow-up on outpatient basis. Dear by pulmonary for discharge Time with Patient: Less than 30
[2023-07-07] MEDS ORDERED: predniSONE 20 MG TAB PO SCH (09:00)
== END 2023-07-06 16:02 | disposition home health service (06) | DRG 178 ==
LOC: EC 12:14 → 4SSUR 15:55 → 3SCARD 06-30 02:05
PROVIDERS: ADMIT Family Medicine; ATTEND Family Medicine
DX: U07.1 COVID-19 (principal); I42.8 Other cardiomyopathies; J45.901 Unspecified asthma with (acute) exacerbation; E86.0 Dehydration; E03.9 Hypothyroidism, unspecified; E78.2 Mixed hyperlipidemia; I10 Essential (primary) hypertension; Z95.810 Presence of automatic (implantable) cardiac defibrillator; F41.9 Anxiety disorder, unspecified; I48.0 Paroxysmal atrial fibrillation; F03.90 Unspecified dementia, unspecified severity, without behavioral disturbance, psychotic disturbance, mood disturbance, and anxiety; I25.10 Atherosclerotic heart disease of native coronary artery without angina pectoris; I25.2 Old myocardial infarction; I34.0 Nonrheumatic mitral (valve) insufficiency; R09.02 Hypoxemia; J44.89 Other specified chronic obstructive pulmonary disease; Z28.310 Unvaccinated for COVID-19; Z78.9 Other specified health status; Z79.01 Long term (current) use of anticoagulants; Z79.890 Hormone replacement therapy; Z79.899 Other long term (current) drug therapy; Z90.710 Acquired absence of both cervix and uterus
CPT/HCPCS: 36415; 71045; 71046; 80048; 80053; 82728; 83605; 83615; 83735; 83880; 84484; 85025; 85027; 85379; 85384; 85610; 85730; 86140; 87636; 87651; 93005; 93306; 94640; 94760; 96361; 96365; 96366; 96372; 96375; 96376; 99285

== ENCOUNTER → 2024-03-09 | Outpatient (CLI) | payer MEDICARE ==
[2024-03-09 18:24] LABS: Basophils # (A) 0.04 X 10*3/uL (0.00-0.10); Basophils % (A) 0.5 %; Eosinophils # (A) 0.02 X 10*3/uL (0.04-0.35); Eosinophils % (A) 0.3 %; HCT 42.3 % (37.2-46.3); HGB 14.2 g/dL (12.0-15.0); Lymphocytes # (A) 1.08 X 10*3/uL (0.90-5.00); MCH 32.4 pg (27.0-32.0); MCHC 33.6 g/dL (32.0-37.0); MCV 96.6 FL (80.0-97.0); Mean Platelet Volume 8.6 FL (9.5-12.2); Monocytes # (A) 0.64 X 10*3/uL (0.20-1.00); Monocytes % (A) 8.3 %; NRBC Per 100 WBC 0 X 10*3/uL (0.00-0.01); Neutrophils # (A) 5.89 X 10*3/uL (1.80-7.70); Neutrophils % (A) 76.5 %; Platelet Count 269 X 10*3/uL (140-440); RBC 4.38 X 10*6/uL (4.10-5.20); RDW 12.5 % (11.5-14.5)
[2024-03-09 18:59] LABS: Creatine Kinase 48 U/L (26-186)
[2024-03-09 19:00] LABS: ALT 21 U/L (8-44); AST 21 U/L (13-35); BUN/Creat Ratio 16.82 Ratio (12.00-20.00); Blood Urea Nitrogen 18.5 mg/dL (9.0-27.0); C Reactive Protein <0.30 mg/dL (0.00-0.80); Calcium 9.7 mg/dL (8.7-10.3); Carbon Dioxide 26.7 mmol/L (21.6-31.8); Chloride 98 mmol/L (96-109); Glucose 93 mg/dL (70-110); Potassium 4.5 mmol/L (3.5-5.5); Rheumatoid Factor, Qnt <15 IU/mL (0-15); Sodium 134 mmol/L (135-145); T4, Free (Free Thyroxine) 1.63 ng/dL (0.80-1.80); Uric Acid 5.2 mg/dL (2.9-7.7)
[2024-03-09 19:42] LABS: Erythrocyte Sedimentation Rate 4 mm/Hr (0-30)
[2024-03-10 03:33] LABS: Cyclic Citrull Pep IgG Unit <1.5 U/mL (<=3.9); Cyclic Citrullinated Pep IgG Negative
[2024-03-10 11:38] LABS: Angiotensin-1 Converting Enz. 22 U/L (8-52)
[2024-03-10 15:34] LABS: HLA B27 NEGATIVE
== END | disposition home or self-care (01) ==
LOC: LABWHC1 13:47
PROVIDERS: ATTEND Orthopaedic Surgery
DX: M79.644 Pain in right finger(s)
CPT/HCPCS: 36415; 80048; 82164; 82306; 82550; 83520; 84439; 84443; 84450; 84460; 84550; 85025; 85652; 86038; 86140; 86200; 86431; 86812